=== PATIENT | male | born 1980 | race African-American/Black ===

== ENCOUNTER 2016-07-12 23:33 | Inpatient (IN) | payer OTHER ==
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
[2016-07-12 23:53] VITALS: BMI 22.7
[2016-07-13] MEDS ORDERED: MAGNESIUM HYDROX 2400MG/30ML ORAL SUSPENSION 30 ML CUP PO PRN (00:02)
[2016-07-13] MEDS ORDERED: hydrOXYzine PAMOATE 50 MG CAPSULE (FP) PO PRN (00:02)
[2016-07-13] MEDS ORDERED: IBUPROFEN 400 MG TABLET (FP) PO PRN (00:02)
[2016-07-13] MEDS ORDERED: MENTHOL/PHENOL 1 EACH UD MM PRN (00:02)
[2016-07-13] MEDS ORDERED: P-EPHED 60MG/TRIPROLIDI 2.5MG TABLET PO PRN (00:02)
[2016-07-13] MEDS ORDERED: MAG HYDROX/AL HYDROX/SIMETH 30 ML UNIT-DOSE CUP PO PRN (00:02)
[2016-07-13] MEDS ORDERED: NICOTINE POLACRILEX 2 MG GUM BC PRN (00:02)
[2016-07-13] MEDS ORDERED: guaiFENesin/D-METHORPHAN HB 10 ML UNIT-DOSE CUPS PO PRN (00:02)
[2016-07-13] MEDS ORDERED: METHADONE HCL 10 MG TABLET (FOR DETOX USE ONLY) PO ONE ×3 (00:02→23:00)
[2016-07-13] MEDS ORDERED: MAGNESIUM CITRATE 300 ML BOTTLE PO PRN (00:02)
[2016-07-13] MEDS ORDERED: LOPERAMIDE HCL 2 MG CAPSULE PO PRN (00:02)
[2016-07-13] MEDS: diazePAM 5 MG TABLET PO PRN ×6 (00:56→22:22)
[2016-07-13] MEDS: diphenhydrAMINE HCL 50 MG CAPSULE PO PRN ×2 (00:56→22:22)
[2016-07-13] MEDS: LIDOCAINE VISCOUS 2% ORAL/TOP 20 ML UNIT-DOSE CUP MM PRN ×5 (00:57→20:35)
[2016-07-13] MEDS: PRENATAL VITAMINS W/ FOLIC ACID TABLET (FP) PO SCH (10:20)
[2016-07-13 11:22] LABS: ALBUMIN 3.5 g/dl (3.4-5.0); ANION GAP 8 (8-16); CALCIUM 8.9 mg/dL (8.5-10.1); CO2 32 mmol/L (21-32); CREATININE 1.1 mg/dL (0.7-1.3); GLUCOSE,RANDOM 65 mg/dL (74-106); SGOT/AST 23 U/L (15-37); SGPT/ALT 28 U/L (12-78)
[2016-07-13 11:29] LABS: ALK PHOS 76 U/L (45-117); BILIRUBIN,TOTAL 0.4 mg/dL (0.2-1.0); TOT PROT 7.5 g/dl (6.4-8.2)
[2016-07-13 11:39] LABS: MCH 29.1 pg (25.7-33.7); MCHC 32.9 g/dl (32.0-35.9); MEAN CELL VOLUME 88.7 fl (80-96); MEAN PLT VOLUME 11.1 fl (7.5-11.1); PLATELET COUNT 295 K/MM3 (134-434); RDW 13.7 % (11.9-15.9); WHITE BLOOD COUNT 7.3 K/mm3 (4.0-10.0)
--- NOTE | 2016-07-13 11:40 | PN ---
[facility] COWS - Scale Resting Pulse: 1= ID [id number] Sweatin=Flushed/Facial Moisture Restless Observation: 1= Difficult to Sit Still Pupil Size: 0= Normal to Room Light Bone or Joint Aches: 2= Severe Diffuse Aches Runny Nose/ Eye Tearin= Runny Nose/Eyes GI Upset > 30mins: 2= Nausea/Diarrhea Tremor Observation of Outstretched Hands: 2= Slight Tremor Visible Yawning Observation: 1= 1-2x During Session Anxiety or Irritability: 2=Irritable/Anxious Goose Flesh Skin: 0=Smooth Skin COWS Score: 15 BHS Progress Note (SOAP) Subjective: Anxiety,tremors,sweating,interrupted sleep,restless Objective: 07/13/16 11:39 Last Vital Signs Temp Pulse Resp BP Pulse Ox 96.8 F L 84 18 135/78 07/13/16 09:56 07/13/16 09:56 07/13/16 09:56 07/13/16 09:56 Laboratory Last Values Sodium 138 mmol/L (136-145) 07/13/16 08:00 Potassium 4.0 mmol/L (3.5-5.1) 07/13/16 08:00 Chloride 98 mmol/L (98-107) 07/13/16 08:00 Carbon Dioxide 32 mmol/L (21-32) D 07/13/16 08:00 Anion Gap 8 (8-16) 07/13/16 08:00 BUN 14 mg/dL (7-18) 07/13/16 08:00 Creatinine 1.1 mg/dL (0.7-1.3) 07/13/16 08:00 Creat Clearance w eGFR > 60 (>60) 07/13/16 08:00 Random Glucose 65 mg/dL (74-106) L 07/13/16 08:00 Calcium 8.9 mg/dL (8.5-10.1) 07/13/16 08:00 Total Bilirubin 0.4 mg/dL (0.2-1.0) D 07/13/16 08:00 AST 23 U/L (15-37) D 07/13/16 08:00 ALT 28 U/L (12-78) 07/13/16 08:00 Alkaline Phosphatase 76 U/L (45-117) D 07/13/16 08:00 Total Protein 7.5 g/dl (6.4-8.2) 07/13/16 08:00 Albumin 3.5 g/dl (3.4-5.0) 07/13/16 08:00 labs noted Assessment: 07/13/16 11:39 Withdrawal sx. Plan: Continue detox
[2016-07-13] MEDS: NICOTINE 21 MG/24 HOURS TOPICAL PATCH TD SCH (11:50)
--- NOTE | 2016-07-13 12:32 | EKG ---
Test Reason : Blood Pressure : / mmHG Vent. Rate : 069 BPM Atrial Rate : 069 BPM P-R Int : 150 ms QRS Dur : 086 ms QT Int : 406 ms P-R-T Axes : 072 068 059 degrees QTc Int : 435 ms NORMAL SINUS RHYTHM BIATRIAL ENLARGEMENT ABNORMAL ECG NO PREVIOUS ECGS AVAILABLE Confirmed by LAVERNE BAGLEY MD ([id number]) on 07/13/2016 12:31:42 PM Referred By: Confirmed By:LAVERNE BAGLEY MD
[2016-07-13] MEDS: ACETAMINOPHEN 325 MG TABLET (FP) PO PRN (18:56)
[2016-07-13] MEDS: THIAMINE HCL 100 MG TABLET (FP) PO SCH (22:21)
[2016-07-14] MEDS: diphenhydrAMINE HCL 50 MG CAPSULE PO PRN ×2 (00:43→22:18)
[2016-07-14] MEDS: diazePAM 5 MG TABLET PO PRN ×4 (03:46→20:46)
[2016-07-14] MEDS: LIDOCAINE VISCOUS 2% ORAL/TOP 20 ML UNIT-DOSE CUP MM PRN (03:49)
[2016-07-14] MEDS ORDERED: CYCLOBENZAPRINE HCL 10 MG TABLET (FP) PO PRN (09:29)
[2016-07-14] MEDS ORDERED: METHADONE HCL 10 MG TABLET (FOR DETOX USE ONLY) PO ONE (10:00)
[2016-07-14] MEDS: PRENATAL VITAMINS W/ FOLIC ACID TABLET (FP) PO SCH (10:22)
[2016-07-14] MEDS: NICOTINE 21 MG/24 HOURS TOPICAL PATCH TD SCH (10:22)
[2016-07-14] MEDS: cloNIDine HCL 0.1 MG TABLET PO SCH ×2 (10:22→22:18)
[2016-07-14] MEDS: LIDOCAINE VISCOUS 2% ORAL/TOP 100 ML BOTTLE MM PRN ×2 (10:23→22:22)
--- NOTE | 2016-07-14 10:26 | PN ---
S COWS - Scale Resting Pulse: 1= TN 81-100 Sweatin= Chills/Flushing Restless Observation: 3= Extraneous Movement Pupil Size: 1= Pupils >than Normal Bone or Joint Aches: 2= Severe Diffuse Aches Runny Nose/ Eye Tearin= Runny Nose/Eyes GI Upset > 30mins: 3= Vomiting/Diarrhea Tremor Observation of Outstretched Hands: 2= Slight Tremor Visible Yawning Observation: 1= 1-2x During Session Anxiety or Irritability: 2=Irritable/Anxious Goose Flesh Skin: 0=Smooth Skin COWS Score: 18 S Progress Note (SOAP) Subjective: alert,irritable,anxious,pain in the body joint and back,tremor,tremor Objective: 07/14/16 10:23 07/14/16 10:23 Vital Signs Temperature 97.1 F L 07/14/16 06:35 Pulse Rate 84 07/14/16 06:35 Respiratory Rate 16 07/14/16 06:35 Blood Pressure 133/82 07/14/16 06:35 O2 Sat by Pulse Oximetry (%) Laboratory Last Values WBC 7.3 K/mm3 (4.0-10.0) D 07/13/16 08:00 RBC 4.93 M/mm3 (4.00-5.60) 07/13/16 08:00 Hgb 14.4 GM/dL (11.7-16.9) 07/13/16 08:00 Hct 43.7 % (35.4-49) 07/13/16 08:00 MCV 88.7 fl (80-96) 07/13/16 08:00 MCHC 32.9 g/dl (32.0-35.9) 07/13/16 08:00 RDW 13.7 % (11.9-15.9) 07/13/16 08:00 Plt Count 295 K/MM3 (134-434) D 07/13/16 08:00 MPV 11.1 fl (7.5-11.1) 07/13/16 08:00 Sodium 138 mmol/L (136-145) 07/13/16 08:00 Potassium 4.0 mmol/L (3.5-5.1) 07/13/16 08:00 Chloride 98 mmol/L (98-107) 07/13/16 08:00 Carbon Dioxide 32 mmol/L (21-32) D 07/13/16 08:00 Anion Gap 8 (8-16) 07/13/16 08:00 BUN 14 mg/dL (7-18) 07/13/16 08:00 Creatinine 1.1 mg/dL (0.7-1.3) 07/13/16 08:00 Creat Clearance w eGFR > 60 (>60) 07/13/16 08:00 Random Glucose 65 mg/dL (74-106) L 07/13/16 08:00 Calcium 8.9 mg/dL (8.5-10.1) 07/13/16 08:00 Total Bilirubin 0.4 mg/dL (0.2-1.0) D 07/13/16 08:00 AST 23 U/L (15-37) D 07/13/16 08:00 ALT 28 U/L (12-78) 07/13/16 08:00 Alkaline Phosphatase 76 U/L (45-117) D 07/13/16 08:00 Total Protein 7.5 g/dl (6.4-8.2) 07/13/16 08:00 Albumin 3.5 g/dl (3.4-5.0) 07/13/16 08:00 RPR Titer Nonreactive (NONREACTIVE) 07/13/16 08:00 Assessment: 07/14/16 10:25 withdrawal symptom oral sores Plan: continue detox,lidocaine mout wash prn q 4 hrs,fluid
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
[2016-07-14] MEDS: ACETAMINOPHEN 325 MG TABLET (FP) PO PRN (18:00)
[2016-07-14] MEDS: QUEtiapine FUMARATE 100 MG TABLET (FP) PO SCH (22:18)
[2016-07-14] MEDS: THIAMINE HCL 100 MG TABLET (FP) PO SCH (22:18)
--- NOTE | 2016-07-15 08:41 | PN ---
S Progress Note (SOAP) Subjective: ALERT,IRRITABLE,ANXIOUS,INTERRUPTED SLEEP Objective: 07/15/16 08:41 Vital Signs Temperature 97 F L 07/14/16 22:01 Pulse Rate 97 H 07/14/16 22:01 Respiratory Rate 18 07/15/16 06:30 Blood Pressure 139/86 07/14/16 22:01 O2 Sat by Pulse Oximetry (%) Assessment: 07/15/16 08:41 WITHDRAWAL SYMPTOM Plan: CONTINUE DETOX
[2016-07-15] MEDS ORDERED: METHADONE HCL 5 MG TABLET (FOR DETOX USE ONLY) PO ONE (10:00)
[2016-07-15] MEDS: PRENATAL VITAMINS W/ FOLIC ACID TABLET (FP) PO SCH (10:22)
[2016-07-15] MEDS: QUEtiapine FUMARATE 50 MG TABLET PO SCH (10:22)
[2016-07-15] MEDS: cloNIDine HCL 0.1 MG TABLET PO SCH ×2 (10:22→22:19)
[2016-07-15] MEDS: NICOTINE 21 MG/24 HOURS TOPICAL PATCH TD SCH (10:23)
[2016-07-15] MEDS: diazePAM 5 MG TABLET PO PRN ×4 (10:25→22:23)
[2016-07-15] MEDS: LIDOCAINE VISCOUS 2% ORAL/TOP 100 ML BOTTLE MM PRN (10:31)
[2016-07-15] MEDS: diphenhydrAMINE HCL 50 MG CAPSULE PO PRN (22:19)
[2016-07-15] MEDS: QUEtiapine FUMARATE 100 MG TABLET (FP) PO SCH (22:19)
[2016-07-15] MEDS: THIAMINE HCL 100 MG TABLET (FP) PO SCH (22:19)
[2016-07-16] MEDS: LIDOCAINE VISCOUS 2% ORAL/TOP 20 ML UNIT-DOSE CUP MM PRN (06:19)
--- NOTE | 2016-07-16 08:54 | PN ---
S Progress Note (SOAP) Subjective: ALERT,IRRITABLE,ANXIOUS,INTERRUPTED SLEEP, Objective: 07/16/16 08:53 Vital Signs Temperature 96.7 F L 07/16/16 06:44 Pulse Rate 90 07/16/16 06:44 Respiratory Rate 18 07/16/16 06:44 Blood Pressure 118/76 07/16/16 06:44 O2 Sat by Pulse Oximetry (%) Assessment: 07/16/16 08:54 WITHDRAWAL SYMPTOM Plan: CONTINUE DETOX,DISCHARGE IN AM
[2016-07-16] MEDS ORDERED: METHADONE HCL 5 MG TABLET (FOR DETOX USE ONLY) PO ONE (10:00)
[2016-07-16] MEDS: QUEtiapine FUMARATE 50 MG TABLET PO SCH (10:08)
[2016-07-16] MEDS: cloNIDine HCL 0.1 MG TABLET PO SCH ×2 (10:08→22:28)
[2016-07-16] MEDS: PRENATAL VITAMINS W/ FOLIC ACID TABLET (FP) PO SCH (10:08)
[2016-07-16] MEDS: NICOTINE 21 MG/24 HOURS TOPICAL PATCH TD SCH (10:09)
[2016-07-16 22:26] LABS: URINE APPEARANCE CLEAR; URINE BILIRUBIN NEGATIVE (NEGATIVE); URINE BLOOD NEGATIVE (NEGATIVE); URINE COLOR DKYELLOW; URINE GLUCOSE (UA) NEGATIVE (NEGATIVE); URINE KETONE NEGATIVE (NEGATIVE); URINE LEUK ESTERASE NEGATIVE (NEGATIVE); URINE NITRITE NEGATIVE (NEGATIVE); URINE PROTEIN NEGATIVE (NEGATIVE); URINE UROBILINOGEN 2.0 E.U/dl E.U./dl (0.2-1.0)
[2016-07-16] MEDS: QUEtiapine FUMARATE 100 MG TABLET (FP) PO SCH (22:28)
[2016-07-16] MEDS: THIAMINE HCL 100 MG TABLET (FP) PO SCH (22:28)
[2016-07-16] MEDS: diphenhydrAMINE HCL 50 MG CAPSULE PO PRN (22:28)
[2016-07-16] MEDS: LIDOCAINE VISCOUS 2% ORAL/TOP 100 ML BOTTLE MM PRN (22:40)
--- NOTE | 2016-07-17 08:15 | PN ---
S Progress Note (SOAP) Subjective: alert,irritable,interrupted sleep Objective: 07/17/16 08:14 Vital Signs Temperature 98.4 F 07/17/16 06:40 Pulse Rate 89 07/17/16 06:40 Respiratory Rate 16 07/17/16 06:40 Blood Pressure 109/64 07/17/16 06:40 O2 Sat by Pulse Oximetry (%) Assessment: 07/17/16 08:14 withdrawal symptom Plan: continue detox,discharge in am
[2016-07-17 09:48] VITALS: BP 107/62; PULSE 87; TEMP 97.1
[2016-07-17] MEDS ORDERED: METHADONE HCL 10 MG TABLET (FOR DETOX USE ONLY) PO ONE (10:00)
[2016-07-17] MEDS: cloNIDine HCL 0.1 MG TABLET PO SCH (10:25)
[2016-07-17] MEDS: PRENATAL VITAMINS W/ FOLIC ACID TABLET (FP) PO SCH (10:26)
[2016-07-17] MEDS: QUEtiapine FUMARATE 50 MG TABLET PO SCH (10:26)
[2016-07-17] MEDS: NICOTINE 21 MG/24 HOURS TOPICAL PATCH TD SCH (10:26)
--- NOTE | 2016-07-17 11:44 | PN ---
S Progress Note Note: PATIENT IS STABLE,NO WITHDRAWAL SYMPTOM,STABLE FOR DISCHARGE ,FOLLOW UP WITH AFTER CARE PROGRAM ARRANGEMENT
--- NOTE | 2016-07-17 11:45 | DS ---
[facility] Detox Discharge Summary Admission Date: 07/12/16 Discharge Date: 07/17/16 - History Present History: Opioid Dependence Additional Comments: FOLLOW UP WITH AFTER CARE PROGRAM ARRANGEMENT Pertinent Past History: NICOTIN DEPENDENCE S/P FX LEFT FEMUR S/P ABDOMINAL SURGERY PARANOID SCHIZOPHRENIA - Physical Exam Results Vital Signs: Vital Signs Temperature 97.1 F L 07/17/16 09:47 Pulse Rate 87 07/17/16 09:47 Respiratory Rate 20 07/17/16 09:47 Blood Pressure 107/62 07/17/16 09:47 O2 Sat by Pulse Oximetry (%) Pertinent Admission Physical Exam Findings: WITHDRAWAL SYMPTOM - Treatment Hospital Course: Detox Protocol Followed, Detoxed Safely, Responded well, Discharged Condition Good, Rehab Referral Accepted Patient has Accepted a Rehab Referral to: [facility] - Medication Discharge Medications: Ambulatory Orders Benztropine Mesylate [Cogentin -] 2 mg PO HS #30 tablet 11/20/15 Risperidone [Risperdal] 3 mg PO HS #30 tablet 11/20/15 Quetiapine Fumarate [Seroquel -] 200 mg PO HS #30 tab 07/14/16 - AMA Did Patient Leave Against Medical Advice: No
[2016-07-18] MEDS ORDERED: METHADONE HCL 5 MG TABLET (FOR DETOX USE ONLY) PO ONE (06:00)
== END 2016-07-17 12:30 | disposition home or self-care (01) | DRG 773 ==
LOC: YASAS 23:33 → Y3N 23:40
PROVIDERS: ADMIT Internal Medicine; ATTEND Internal Medicine
PROC: HZ2ZZZZ Detoxification Services for Substance Abuse Treatment (ICD-10-PCS; principal; 2016-07-17)
DX: F11.23 Opioid dependence with withdrawal (principal); F10.230 Alcohol dependence with withdrawal, uncomplicated; F14.20 Cocaine dependence, uncomplicated; F17.210 Nicotine dependence, cigarettes, uncomplicated; F19.24 Other psychoactive substance dependence with psychoactive substance-induced mood disorder; F20.0 Paranoid schizophrenia; G47.00 Insomnia, unspecified; K13.79 Other lesions of oral mucosa; Z87.81 Personal history of (healed) traumatic fracture
CPT/HCPCS: 36415; 80053; 81003; 85027; 86593; 93005; 93010

== ENCOUNTER 2016-10-23 13:24 | Inpatient (IN) | payer OTHER ==
[2016-10-23 13:49] VITALS: BMI 24.5
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
[2016-10-23] MEDS ORDERED: MAG HYDROX/AL HYDROX/SIMETH 30 ML UNIT-DOSE CUP PO PRN (18:41)
[2016-10-23] MEDS ORDERED: MENTHOL/PHENOL 1 EACH UD MM PRN (18:41)
[2016-10-23] MEDS ORDERED: MAGNESIUM HYDROX 2400MG/30ML ORAL SUSPENSION 30 ML CUP PO PRN (18:41)
[2016-10-23] MEDS ORDERED: diazePAM 5 MG TABLET PO ONE (18:41)
[2016-10-23] MEDS ORDERED: NICOTINE POLACRILEX 2 MG GUM BC PRN (18:41)
[2016-10-23] MEDS ORDERED: P-EPHED 60MG/TRIPROLIDI 2.5MG TABLET PO PRN (18:41)
[2016-10-23] MEDS ORDERED: guaiFENesin/D-METHORPHAN HB 10 ML UNIT-DOSE CUPS PO PRN (18:41)
[2016-10-23] MEDS ORDERED: METHADONE HCL 10 MG TABLET (FOR DETOX USE ONLY) PO ONE ×2 (18:41→23:00)
[2016-10-23] MEDS ORDERED: MAGNESIUM CITRATE 300 ML BOTTLE PO PRN (18:41)
[2016-10-23] MEDS ORDERED: LOPERAMIDE HCL 2 MG CAPSULE PO PRN (18:41)
[2016-10-23] MEDS: THIAMINE HCL 100 MG TABLET (FP) PO SCH (22:19)
[2016-10-23] MEDS: diazePAM 5 MG TABLET PO SCH (22:19)
[2016-10-23 23:16] LABS: URINE APPEARANCE CLEAR; URINE BILIRUBIN NEGATIVE (NEGATIVE); URINE BLOOD NEGATIVE (NEGATIVE); URINE COLOR YELLOW; URINE GLUCOSE (UA) NEGATIVE (NEGATIVE); URINE KETONE TRACE (NEGATIVE); URINE LEUK ESTERASE NEGATIVE (NEGATIVE); URINE NITRITE NEGATIVE (NEGATIVE); URINE PROTEIN NEGATIVE (NEGATIVE); URINE UROBILINOGEN 2.0 E.U/dl E.U./dl (0.2-1.0)
[2016-10-24] MEDS: diazePAM 5 MG TABLET PO PRN ×3 (00:28→17:05)
[2016-10-24] MEDS: LIDOCAINE VISCOUS 2% ORAL/TOP 20 ML UNIT-DOSE CUP MM PRN ×3 (00:29→18:12)
[2016-10-24] MEDS: diazePAM 5 MG TABLET PO SCH ×3 (05:13→22:11)
[2016-10-24] MEDS ORDERED: METHADONE HCL 10 MG TABLET (FOR DETOX USE ONLY) PO SCH (10:00)
[2016-10-24 10:04] LABS: MCH 30.5 pg (25.7-33.7); MCHC 33.7 g/dl (32.0-35.9); MEAN CELL VOLUME 90.3 fl (80-96); MEAN PLT VOLUME 12.1 fl (7.5-11.1); PLATELET COUNT 302 K/MM3 (134-434); RDW 13.3 % (11.9-15.9); WHITE BLOOD COUNT 6.6 K/mm3 (4.0-10.0)
[2016-10-24 10:05] LABS: ALBUMIN 3.7 g/dl (3.4-5.0); ALK PHOS 81 U/L (45-117); ANION GAP 8 (8-16); BILIRUBIN,TOTAL 0.4 mg/dL (0.2-1.0); CALCIUM 8.5 mg/dL (8.5-10.1); CO2 28 mmol/L (21-32); CREATININE 1.1 mg/dL (0.7-1.3); GLUCOSE,RANDOM 110 mg/dL (74-106); SGOT/AST 43 U/L (15-37); SGPT/ALT 41 U/L (12-78); TOT PROT 7.9 g/dl (6.4-8.2)
[2016-10-24] MEDS: PRENATAL VITAMINS W/ FOLIC ACID TABLET (FP) PO SCH (10:06)
[2016-10-24] MEDS: NICOTINE 14 MG/24 HOURS TOPICAL PATCH TD SCH (10:08)
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
[2016-10-24] MEDS ORDERED: BACITRACIN 30 GM TUBE TOPICAL OINTMENT TP SCH (10:45)
[2016-10-24] MEDS: BACITRACIN 0.9 GM PACKET TP SCH (11:09)
[2016-10-24 13:22] LABS: HIV 1 & 2 AB NEGATIVE; HIV 1 AGp24 NEGATIVE
[2016-10-24] MEDS: IBUPROFEN 400 MG TABLET (FP) PO PRN (18:10)
[2016-10-24] MEDS: TOLNAFTATE 1% CREAM 15 GM TUBE TP SCH (22:09)
[2016-10-24] MEDS: HYDROCORTISONE 1% TOPICAL OINT 30 GM TUBE TP SCH (22:10)
[2016-10-24] MEDS: risperiDONE 3 MG TABLET PO SCH (22:11)
[2016-10-24] MEDS: BENZTROPINE MESYLATE 1 MG TABLET (FP) PO SCH (22:11)
[2016-10-24] MEDS: traZODone HCL 100 MG TABLET (FP) PO SCH (22:12)
[2016-10-24] MEDS: THIAMINE HCL 100 MG TABLET (FP) PO SCH (22:12)
[2016-10-24] MEDS: diphenhydrAMINE HCL 50 MG CAPSULE PO PRN (22:14)
[2016-10-25] MEDS: diazePAM 5 MG TABLET PO PRN ×3 (05:45→17:06)
[2016-10-25] MEDS: LIDOCAINE VISCOUS 2% ORAL/TOP 20 ML UNIT-DOSE CUP MM PRN ×3 (05:47→22:34)
[2016-10-25] MEDS: diazePAM 5 MG TABLET PO SCH ×2 (10:41→22:54)
[2016-10-25] MEDS: PRENATAL VITAMINS W/ FOLIC ACID TABLET (FP) PO SCH (10:41)
[2016-10-25] MEDS: TOLNAFTATE 1% CREAM 15 GM TUBE TP SCH ×2 (10:41→22:33)
[2016-10-25] MEDS: METHADONE HCL 5 MG TABLET (FOR DETOX USE ONLY) PO SCH (10:41)
[2016-10-25] MEDS: BACITRACIN 0.9 GM PACKET TP SCH (10:41)
[2016-10-25] MEDS: HYDROCORTISONE 1% TOPICAL OINT 30 GM TUBE TP SCH ×2 (10:42→22:32)
[2016-10-25] MEDS: NICOTINE 14 MG/24 HOURS TOPICAL PATCH TD SCH (10:42)
[2016-10-25] MEDS: IBUPROFEN 400 MG TABLET (FP) PO PRN ×2 (10:55→17:06)
--- NOTE | 2016-10-25 13:52 | PN ---
S CIWA - CIWA Score Nausea/Vomitin Muscle Tremors: 3 Anxiety: 4-Mod. Anxious/Guarded Agitation: 1-Slight > Activity Paroxysmal Sweats: 2 Orientation: 0-Oriented Tacttile Disturbances: 2-Mild Itch/Numbness/Burn Auditory Disturbances: 0-None Visual Disturbances: 1-Very Mild Sensitivity Headache: 2-Mild CIWA-Ar Total Score: 18 [facility] COWS - Scale Resting Pulse: 1= [place] 81-100 Sweatin=Flushed/Facial Moisture Restless Observation: 1= Difficult to Sit Still Pupil Size: 0= Normal to Room Light Bone or Joint Aches: 2= Severe Diffuse Aches Runny Nose/ Eye Tearin= Nasal Congestion GI Upset > 30mins: 2= Nausea/Diarrhea Tremor Observation of Outstretched Hands: 2= Slight Tremor Visible Yawning Observation: 1= 1-2x During Session Anxiety or Irritability: 2=Irritable/Anxious Goose Flesh Skin: 3=Piloerection COWS Score: 17 S Progress Note (SOAP) Subjective: Sweating, Hot / Cold sensations, Body Aches, Lower Back ache, Interrupted Sleep , Nausea, Diarrhea, Stomach Cramping, H/A. Objective: PT. A & O X 3, OBSERVED AMBULATING ON UNIT WITH ASSISTANCE OF CANE. NO ACUTE DISTRESS. PT. DENIES CHEST PAIN. 10/25/16 13:50 Vital Signs Temperature 96.9 F L 10/25/16 13:45 Pulse Rate 94 H 10/25/16 13:45 Respiratory Rate 18 10/25/16 13:45 Blood Pressure 149/85 10/25/16 13:45 O2 Sat by Pulse Oximetry (%) Laboratory Tests 10/23/16 10/23/16 10/24/16 14:00 22:04 06:00 WBC 6.6 RBC 4.94 Hgb 15.1 Hct 44.6 MCV 90.3 MCHC 33.7 RDW 13.3 Plt Count 302 MPV 12.1 H Sodium Potassium Chloride Carbon Dioxide Anion Gap BUN Creatinine Creat Clearance w eGFR Random Glucose Calcium Total Bilirubin AST ALT Alkaline Phosphatase Total Protein Albumin Urine Color Yellow Urine Appearance Clear Urine pH 5.0 Ur Specific [place] 1.025 Urine Protein Negative Urine Glucose (UA) Negative Urine Ketones Trace H Urine Blood Negative Urine Nitrite Negative Urine Bilirubin Negative Urine Urobilinogen 2.0 e.u/dl Ur Leukocyte Esterase Negative RPR Titer HIV 1&2 Antibody Screen Negative HIV P24 Antigen Negative 10/24/16 10/24/16 06:00 06:00 WBC RBC Hgb Hct MCV MCHC RDW Plt Count MPV Sodium 138 Potassium 4.2 Chloride 102 Carbon Dioxide 28 Anion Gap 8 BUN 15 Creatinine 1.1 Creat Clearance w eGFR > 60 Random Glucose 110 H D Calcium 8.5 Total Bilirubin 0.4 AST 43 H D ALT 41 D Alkaline Phosphatase 81 Total Protein 7.9 Albumin 3.7 Urine Color Urine Appearance Urine pH Ur Specific [place] Urine Protein Urine Glucose (UA) Urine Ketones Urine Blood Urine Nitrite Urine Bilirubin Urine Urobilinogen Ur Leukocyte Esterase RPR Titer Nonreactive HIV 1&2 Antibody Screen HIV P24 Antigen LABS NOTED. Assessment: 10/25/16 13:51 WITHDRAWAL SYMPTOMS. Plan: CONTINUE DETOX.
[2016-10-25] MEDS: BENZTROPINE MESYLATE 1 MG TABLET (FP) PO SCH (22:22)
[2016-10-25] MEDS: risperiDONE 3 MG TABLET PO SCH (22:23)
[2016-10-25] MEDS: THIAMINE HCL 100 MG TABLET (FP) PO SCH (22:23)
[2016-10-25] MEDS: traZODone HCL 100 MG TABLET (FP) PO SCH (22:23)
[2016-10-26] MEDS: LIDOCAINE VISCOUS 2% ORAL/TOP 20 ML UNIT-DOSE CUP MM PRN ×2 (05:36→16:55)
[2016-10-26] MEDS: IBUPROFEN 400 MG TABLET (FP) PO PRN ×2 (07:02→17:27)
[2016-10-26] MEDS: diazePAM 5 MG TABLET PO PRN ×2 (07:03→16:39)
[2016-10-26] MEDS: ACETAMINOPHEN 325 MG TABLET (FP) PO PRN ×2 (09:42→18:42)
[2016-10-26] MEDS: PRENATAL VITAMINS W/ FOLIC ACID TABLET (FP) PO SCH (10:07)
[2016-10-26] MEDS: METHADONE HCL 5 MG TABLET (FOR DETOX USE ONLY) PO SCH (10:07)
[2016-10-26] MEDS: TOLNAFTATE 1% CREAM 15 GM TUBE TP SCH ×2 (10:08→21:55)
[2016-10-26] MEDS: diazePAM 5 MG TABLET PO SCH ×2 (10:08→21:53)
[2016-10-26] MEDS: HYDROCORTISONE 1% TOPICAL OINT 30 GM TUBE TP SCH ×2 (10:09→21:54)
[2016-10-26] MEDS: BACITRACIN 0.9 GM PACKET TP SCH (10:56)
[2016-10-26] MEDS: NICOTINE 14 MG/24 HOURS TOPICAL PATCH TD SCH (10:56)
[2016-10-26] MEDS: CHLORHEXIDINE GLUCONATE 0.12% 15ML CUP MM SCH ×2 (10:57→21:55)
--- NOTE | 2016-10-26 12:11 | PN ---
[facility] Progress Note (SOAP) Subjective: Nausea, sweating, anxious, c/o mouth ulcer hurting x 1 week Objective: 10/26/16 12:07 Last Vital Signs Temp Pulse Resp BP Pulse Ox 97.2 F L 99 H 18 140/83 10/26/16 10:43 10/26/16 10:43 10/26/16 10:43 10/26/16 10:43 PE: moderate size elongated ulcer with slough to inner right lip, scant redness , no drainage or discharge noted Laboratory Tests 10/23/16 10/23/16 10/24/16 14:00 22:04 06:00 WBC 6.6 RBC 4.94 Hgb 15.1 Hct 44.6 MCV 90.3 MCHC 33.7 RDW 13.3 Plt Count 302 MPV 12.1 H Sodium Potassium Chloride Carbon Dioxide Anion Gap BUN Creatinine Creat Clearance w eGFR Random Glucose Calcium Total Bilirubin AST ALT Alkaline Phosphatase Total Protein Albumin Urine Color Yellow Urine Appearance Clear Urine pH 5.0 Ur Specific [place] 1.025 Urine Protein Negative Urine Glucose (UA) Negative Urine Ketones Trace H Urine Blood Negative Urine Nitrite Negative Urine Bilirubin Negative Urine Urobilinogen 2.0 e.u/dl Ur Leukocyte Esterase Negative RPR Titer HIV 1&2 Antibody Screen Negative HIV P24 Antigen Negative 10/24/16 10/24/16 06:00 06:00 WBC RBC Hgb Hct MCV MCHC RDW Plt Count MPV Sodium 138 Potassium 4.2 Chloride 102 Carbon Dioxide 28 Anion Gap 8 BUN 15 Creatinine 1.1 Creat Clearance w eGFR > 60 Random Glucose 110 H D Calcium 8.5 Total Bilirubin 0.4 AST 43 H D ALT 41 D Alkaline Phosphatase 81 Total Protein 7.9 Albumin 3.7 Urine Color Urine Appearance Urine pH Ur Specific [place] Urine Protein Urine Glucose (UA) Urine Ketones Urine Blood Urine Nitrite Urine Bilirubin Urine Urobilinogen Ur Leukocyte Esterase RPR Titer Nonreactive HIV 1&2 Antibody Screen HIV P24 Antigen Labs noted Assessment: 10/26/16 12:08 Withdrawal symptoms Noted with aphthous ulcer to right inner lower lip Plan: Continue detox Aphthous ulcer right lower lip: peridex 15ml swish and spit bid, continue lidocaine prn for pain
[2016-10-26] MEDS: THIAMINE HCL 100 MG TABLET (FP) PO SCH (21:52)
[2016-10-26] MEDS: BENZTROPINE MESYLATE 1 MG TABLET (FP) PO SCH (21:53)
[2016-10-26] MEDS: risperiDONE 3 MG TABLET PO SCH (21:54)
[2016-10-26] MEDS: traZODone HCL 100 MG TABLET (FP) PO SCH (22:01)
--- NOTE | 2016-10-26 22:19 | EKG ---
Test Reason : Blood Pressure : / mmHG Vent. Rate : 063 BPM Atrial Rate : 063 BPM P-R Int : 162 ms QRS Dur : 090 ms QT Int : 414 ms P-R-T Axes : 060 059 052 degrees QTc Int : 423 ms NORMAL SINUS RHYTHM NORMAL ECG WHEN COMPARED WITH ECG OF 13-JUL-2016 00:45, NO SIGNIFICANT CHANGE WAS FOUND Confirmed by EMA GUAJARDO MD ([id number]) on 10/26/2016 10:18:44 PM Referred By: Dave Markham Confirmed By:EMA GUAJARDO MD
[2016-10-26] MEDS: diphenhydrAMINE HCL 50 MG CAPSULE PO PRN (22:29)
[2016-10-27] MEDS: LIDOCAINE VISCOUS 2% ORAL/TOP 20 ML UNIT-DOSE CUP MM PRN ×2 (05:23→18:53)
[2016-10-27] MEDS: TOLNAFTATE 1% CREAM 15 GM TUBE TP SCH ×2 (09:58→22:07)
[2016-10-27] MEDS: PRENATAL VITAMINS W/ FOLIC ACID TABLET (FP) PO SCH (09:59)
[2016-10-27] MEDS: HYDROCORTISONE 1% TOPICAL OINT 30 GM TUBE TP SCH ×2 (09:59→22:07)
[2016-10-27] MEDS: BACITRACIN 0.9 GM PACKET TP SCH (09:59)
[2016-10-27] MEDS: NICOTINE 14 MG/24 HOURS TOPICAL PATCH TD SCH (10:00)
[2016-10-27] MEDS ORDERED: METHADONE HCL 10 MG TABLET (FOR DETOX USE ONLY) PO SCH (10:00)
[2016-10-27] MEDS ORDERED: diazePAM 5 MG TABLET PO SCH (10:00)
[2016-10-27] MEDS: CHLORHEXIDINE GLUCONATE 0.12% 15ML CUP MM SCH ×2 (10:00→22:08)
--- NOTE | 2016-10-27 11:03 | PN ---
[facility] Progress Note (SOAP) Subjective: Body Aches, Interrupted Sleep, H/A, Sweating, Nausea, Diarrhea. Objective: PT. A & O X 3, OBSERVED AMBULATING ON UNIT WITH ASSISTANCE OF A CANE. NO ACUTE DISTRESS. PT. DENIES CHEST PAIN. PT. DENIES ANY HISTORY OF HTN. 10/27/16 11:01 Vital Signs Temperature 97.3 F L 10/27/16 08:48 Pulse Rate 83 10/27/16 08:48 Respiratory Rate 18 10/27/16 08:48 Blood Pressure 145/93 10/27/16 08:48 O2 Sat by Pulse Oximetry (%) Laboratory Tests 10/23/16 10/23/16 10/24/16 14:00 22:04 06:00 WBC 6.6 RBC 4.94 Hgb 15.1 Hct 44.6 MCV 90.3 MCHC 33.7 RDW 13.3 Plt Count 302 MPV 12.1 H Sodium Potassium Chloride Carbon Dioxide Anion Gap BUN Creatinine Creat Clearance w eGFR Random Glucose Calcium Total Bilirubin AST ALT Alkaline Phosphatase Total Protein Albumin Urine Color Yellow Urine Appearance Clear Urine pH 5.0 Ur Specific [place] 1.025 Urine Protein Negative Urine Glucose (UA) Negative Urine Ketones Trace H Urine Blood Negative Urine Nitrite Negative Urine Bilirubin Negative Urine Urobilinogen 2.0 e.u/dl Ur Leukocyte Esterase Negative RPR Titer HIV 1&2 Antibody Screen Negative HIV P24 Antigen Negative 10/24/16 10/24/16 06:00 06:00 WBC RBC Hgb Hct MCV MCHC RDW Plt Count MPV Sodium 138 Potassium 4.2 Chloride 102 Carbon Dioxide 28 Anion Gap 8 BUN 15 Creatinine 1.1 Creat Clearance w eGFR > 60 Random Glucose 110 H D Calcium 8.5 Total Bilirubin 0.4 AST 43 H D ALT 41 D Alkaline Phosphatase 81 Total Protein 7.9 Albumin 3.7 Urine Color Urine Appearance Urine pH Ur Specific [place] Urine Protein Urine Glucose (UA) Urine Ketones Urine Blood Urine Nitrite Urine Bilirubin Urine Urobilinogen Ur Leukocyte Esterase RPR Titer Nonreactive HIV 1&2 Antibody Screen HIV P24 Antigen LABS NOTED. 10/27/16 11:04 Assessment: 10/27/16 11:01 WITHDRAWAL SYMPTOMS. Plan: CONTINUE DETOX. PRN FLEXERIL FOR BODY ACHES /MUSCLE SPASMS. PRN IMMODIUM FOR DIARRHEA. CLONIDINE, 0.1 MG X1 FOR ELEVATED BP AND FOR DETOX SYMPTOMS. ADVISED PATIENT TO FOLLOW-UP WITH RECORDING CLERK AFTER DISCHARGE FROM DETOX FOR GENERAL MEDICAL ASSESSMENT AND FOR ELEVATED BP WHILE ADMITTED FOR DETOX.
[2016-10-27] MEDS ORDERED: cloNIDine HCL 0.1 MG TABLET PO ONE (11:28)
[2016-10-27] MEDS: CYCLOBENZAPRINE HCL 10 MG TABLET (FP) PO PRN (11:44)
[2016-10-27] MEDS: BENZTROPINE MESYLATE 1 MG TABLET (FP) PO SCH (22:04)
[2016-10-27] MEDS: THIAMINE HCL 100 MG TABLET (FP) PO SCH (22:04)
[2016-10-27] MEDS: traZODone HCL 100 MG TABLET (FP) PO SCH (22:04)
[2016-10-27] MEDS: risperiDONE 3 MG TABLET PO SCH (22:04)
[2016-10-27] MEDS: diphenhydrAMINE HCL 50 MG CAPSULE PO PRN (22:04)
[2016-10-28] MEDS ORDERED: METHADONE HCL 5 MG TABLET (FOR DETOX USE ONLY) PO SCH (06:00)
[2016-10-28] MEDS: CYCLOBENZAPRINE HCL 10 MG TABLET (FP) PO PRN (07:02)
[2016-10-28] MEDS: LIDOCAINE VISCOUS 2% ORAL/TOP 20 ML UNIT-DOSE CUP MM PRN (08:25)
[2016-10-28 09:43] VITALS: BP 143/84; PULSE 96; TEMP 97
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
[2016-10-28] MEDS: BACITRACIN 0.9 GM PACKET TP SCH (10:06)
[2016-10-28] MEDS: HYDROCORTISONE 1% TOPICAL OINT 30 GM TUBE TP SCH (10:06)
[2016-10-28] MEDS: NICOTINE 14 MG/24 HOURS TOPICAL PATCH TD SCH (10:07)
[2016-10-28] MEDS: TOLNAFTATE 1% CREAM 15 GM TUBE TP SCH (10:07)
[2016-10-28] MEDS: PRENATAL VITAMINS W/ FOLIC ACID TABLET (FP) PO SCH (10:07)
[2016-10-28] MEDS: CHLORHEXIDINE GLUCONATE 0.12% 15ML CUP MM SCH (10:07)
== END 2016-10-28 12:18 | disposition other institution (70) | DRG 773 ==
LOC: YASAS 13:24 → Y3N 16:46
PROVIDERS: ADMIT Internal Medicine; ATTEND Internal Medicine
PROC: HZ2ZZZZ Detoxification Services for Substance Abuse Treatment (ICD-10-PCS; principal; 2016-10-23)
DX: F11.23 Opioid dependence with withdrawal (principal); F13.230 Sedative, hypnotic or anxiolytic dependence with withdrawal, uncomplicated; F10.230 Alcohol dependence with withdrawal, uncomplicated; F14.20 Cocaine dependence, uncomplicated; F17.213 Nicotine dependence, cigarettes, with withdrawal; F20.0 Paranoid schizophrenia; B35.3 Tinea pedis; H60.543 Acute eczematoid otitis externa, bilateral; L30.9 Dermatitis, unspecified; K12.0 Recurrent oral aphthae; R26.2 Difficulty in walking, not elsewhere classified; Z99.89 Dependence on other enabling machines and devices; Z87.81 Personal history of (healed) traumatic fracture; Z91.011 Allergy to milk products; Z91.012 Allergy to eggs; Z91.5 Personal history of self-harm
CPT/HCPCS: 36415; 80053; 81003; 85027; 86593; 87389; 93005; 93010

== ENCOUNTER 2016-10-28 10:17 | Inpatient (IN) | payer OTHER ==
[2016-10-28] MEDS ORDERED: guaiFENesin/D-METHORPHAN HB 10 ML UNIT-DOSE CUPS PO PRN (12:50)
[2016-10-28] MEDS ORDERED: MENTHOL/PHENOL 1 EACH UD MM PRN (12:50)
[2016-10-28] MEDS ORDERED: LOPERAMIDE HCL 2 MG CAPSULE PO PRN (12:50)
[2016-10-28] MEDS ORDERED: diphenhydrAMINE HCL 50 MG CAPSULE PO PRN (12:50)
[2016-10-28] MEDS ORDERED: MAG HYDROX/AL HYDROX/SIMETH 30 ML UNIT-DOSE CUP PO PRN (12:50)
[2016-10-28] MEDS ORDERED: MAGNESIUM HYDROX 2400MG/30ML ORAL SUSPENSION 30 ML CUP PO PRN (12:50)
[2016-10-28] MEDS ORDERED: P-EPHED 60MG/TRIPROLIDI 2.5MG TABLET PO PRN (12:50)
[2016-10-28] MEDS ORDERED: MAGNESIUM CITRATE 300 ML BOTTLE PO PRN (12:50)
--- NOTE | 2016-10-28 12:58 | HP ---
KELLIE JAMESON Rehab Assess/Revision - Admission History Admitted to Rehab from: [facility] Date of Admission to Rehab: 10/28/16 - Vital signs Vital Signs: Vital Signs Period Temp Pulse Resp BP Sys/[place] Pulse Ox Last 24 Hr 97.9 F 80 16 134/78 - Findings Detox History & Physical reviewed: Yes Concur with findings: Yes Comments/Additional Findings: for rehab as protocol
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
[2016-10-28] MEDS: diphenhydrAMINE HCL 50 MG CAPSULE PO SCH (22:06)
[2016-10-28] MEDS: risperiDONE 3 MG TABLET PO SCH (22:07)
[2016-10-28] MEDS: THIAMINE HCL 100 MG TABLET (FP) PO SCH (22:07)
[2016-10-28] MEDS: BENZTROPINE MESYLATE 1 MG TABLET (FP) PO SCH (22:07)
[2016-10-28] MEDS: traZODone HCL 100 MG TABLET (FP) PO SCH (22:07)
[2016-10-28] MEDS: LIDOCAINE VISCOUS 2% ORAL/TOP 20 ML UNIT-DOSE CUP MM PRN (22:10)
[2016-10-29] MEDS: PRENATAL VITAMINS W/ FOLIC ACID TABLET (FP) PO SCH (10:38)
[2016-10-29] MEDS: NICOTINE 21 MG/24 HOURS TOPICAL PATCH TD SCH (10:38)
[2016-10-29] MEDS: LIDOCAINE VISCOUS 2% ORAL/TOP 20 ML UNIT-DOSE CUP MM PRN (10:40)
[2016-10-29] MEDS: HYDROCORTISONE 0.5% TOPICAL OINTMENT TUBE TP SCH ×2 (12:01→21:15)
[2016-10-29] MEDS: TOLNAFTATE 1% CREAM 15 GM TUBE TP SCH ×2 (12:02→21:15)
[2016-10-29] MEDS: IBUPROFEN 400 MG TABLET (FP) PO PRN (12:04)
[2016-10-29] MEDS: THIAMINE HCL 100 MG TABLET (FP) PO SCH (21:14)
[2016-10-29] MEDS: BENZTROPINE MESYLATE 1 MG TABLET (FP) PO SCH (21:14)
[2016-10-29] MEDS: diphenhydrAMINE HCL 50 MG CAPSULE PO SCH (21:14)
[2016-10-29] MEDS: traZODone HCL 100 MG TABLET (FP) PO SCH (21:15)
[2016-10-29] MEDS: risperiDONE 3 MG TABLET PO SCH (21:15)
[2016-10-30] MEDS: hydrOXYzine PAMOATE 50 MG CAPSULE (FP) PO PRN (00:15)
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
[2016-10-30] MEDS: PRENATAL VITAMINS W/ FOLIC ACID TABLET (FP) PO SCH (10:48)
[2016-10-30] MEDS: HYDROCORTISONE 0.5% TOPICAL OINTMENT TUBE TP SCH ×2 (10:48→21:42)
[2016-10-30] MEDS: NICOTINE 21 MG/24 HOURS TOPICAL PATCH TD SCH (10:48)
[2016-10-30] MEDS: IBUPROFEN 400 MG TABLET (FP) PO PRN ×3 (10:49→23:42)
[2016-10-30] MEDS: TOLNAFTATE 1% CREAM 15 GM TUBE TP SCH ×2 (10:49→21:42)
[2016-10-30] MEDS: ACETAMINOPHEN 325 MG TABLET (FP) PO PRN (19:46)
[2016-10-30] MEDS: BENZTROPINE MESYLATE 1 MG TABLET (FP) PO SCH (21:39)
[2016-10-30] MEDS: traZODone HCL 100 MG TABLET (FP) PO SCH (21:39)
[2016-10-30] MEDS: diphenhydrAMINE HCL 50 MG CAPSULE PO SCH (21:39)
[2016-10-30] MEDS: risperiDONE 3 MG TABLET PO SCH (21:40)
[2016-10-30] MEDS: THIAMINE HCL 100 MG TABLET (FP) PO SCH (21:40)
[2016-10-31] MEDS: ACETAMINOPHEN 325 MG TABLET (FP) PO PRN ×3 (03:05→19:58)
[2016-10-31] MEDS: IBUPROFEN 400 MG TABLET (FP) PO PRN ×3 (07:33→21:59)
--- NOTE | 2016-10-31 07:50 | PN ---
[facility] Progress Note Note: RIGHT RIBS X RAY O 10/30/16 UNREMARKABLE EXAM,NO RIB FRACTURE CONTINUE MOTRIN PRN
[2016-10-31] MEDS: NICOTINE 21 MG/24 HOURS TOPICAL PATCH TD SCH (10:32)
[2016-10-31] MEDS: PRENATAL VITAMINS W/ FOLIC ACID TABLET (FP) PO SCH (10:32)
[2016-10-31] MEDS: HYDROCORTISONE 0.5% TOPICAL OINTMENT TUBE TP SCH ×2 (10:33→21:59)
[2016-10-31] MEDS: TOLNAFTATE 1% CREAM 15 GM TUBE TP SCH ×2 (10:33→22:00)
[2016-10-31] MEDS: THIAMINE HCL 100 MG TABLET (FP) PO SCH (21:57)
[2016-10-31] MEDS: diphenhydrAMINE HCL 50 MG CAPSULE PO SCH (21:58)
[2016-10-31] MEDS: traZODone HCL 100 MG TABLET (FP) PO SCH (21:59)
[2016-10-31] MEDS: risperiDONE 3 MG TABLET PO SCH (21:59)
[2016-10-31] MEDS: BENZTROPINE MESYLATE 1 MG TABLET (FP) PO SCH (21:59)
[2016-11-01] MEDS: IBUPROFEN 400 MG TABLET (FP) PO PRN ×3 (06:51→22:01)
[2016-11-01] MEDS: NICOTINE 21 MG/24 HOURS TOPICAL PATCH TD SCH (10:00)
[2016-11-01] MEDS: PRENATAL VITAMINS W/ FOLIC ACID TABLET (FP) PO SCH (10:00)
[2016-11-01] MEDS: TOLNAFTATE 1% CREAM 15 GM TUBE TP SCH ×2 (10:02→22:03)
[2016-11-01] MEDS: HYDROCORTISONE 0.5% TOPICAL OINTMENT TUBE TP SCH ×2 (10:03→22:10)
[2016-11-01] MEDS: ACETAMINOPHEN 325 MG TABLET (FP) PO PRN (17:34)
[2016-11-01] MEDS: diphenhydrAMINE HCL 50 MG CAPSULE PO SCH (22:00)
[2016-11-01] MEDS: THIAMINE HCL 100 MG TABLET (FP) PO SCH (22:00)
[2016-11-01] MEDS: traZODone HCL 100 MG TABLET (FP) PO SCH (22:00)
[2016-11-01] MEDS: risperiDONE 3 MG TABLET PO SCH (22:00)
[2016-11-01] MEDS: BENZTROPINE MESYLATE 1 MG TABLET (FP) PO SCH (22:00)
[2016-11-02] MEDS: ACETAMINOPHEN 325 MG TABLET (FP) PO PRN ×2 (01:59→10:08)
[2016-11-02] MEDS: hydrOXYzine PAMOATE 50 MG CAPSULE (FP) PO PRN ×3 (02:00→19:46)
[2016-11-02] MEDS: IBUPROFEN 400 MG TABLET (FP) PO PRN ×3 (07:12→19:46)
[2016-11-02] MEDS: HYDROCORTISONE 0.5% TOPICAL OINTMENT TUBE TP SCH ×2 (10:07→21:24)
[2016-11-02] MEDS: NICOTINE 21 MG/24 HOURS TOPICAL PATCH TD SCH (10:07)
[2016-11-02] MEDS: TOLNAFTATE 1% CREAM 15 GM TUBE TP SCH ×2 (10:07→21:23)
[2016-11-02] MEDS: PRENATAL VITAMINS W/ FOLIC ACID TABLET (FP) PO SCH (10:07)
[2016-11-02] MEDS: traZODone HCL 100 MG TABLET (FP) PO SCH (21:22)
[2016-11-02] MEDS: THIAMINE HCL 100 MG TABLET (FP) PO SCH (21:22)
[2016-11-02] MEDS: risperiDONE 3 MG TABLET PO SCH (21:22)
[2016-11-02] MEDS: BENZTROPINE MESYLATE 1 MG TABLET (FP) PO SCH (21:22)
[2016-11-02] MEDS: diphenhydrAMINE HCL 50 MG CAPSULE PO SCH (21:22)
[2016-11-03] MEDS: IBUPROFEN 400 MG TABLET (FP) PO PRN (02:38)
[2016-11-03] MEDS: hydrOXYzine PAMOATE 50 MG CAPSULE (FP) PO PRN (02:39)
[2016-11-03 05:53] VITALS: BP 141/76; PULSE 85; TEMP 97.6
[2016-11-03] MEDS: ACETAMINOPHEN 325 MG TABLET (FP) PO PRN (06:03)
[2016-11-03] MEDS: HYDROCORTISONE 0.5% TOPICAL OINTMENT TUBE TP SCH (09:56)
[2016-11-03] MEDS: TOLNAFTATE 1% CREAM 15 GM TUBE TP SCH (09:56)
[2016-11-03] MEDS: NICOTINE 21 MG/24 HOURS TOPICAL PATCH TD SCH (09:56)
[2016-11-03] MEDS: PRENATAL VITAMINS W/ FOLIC ACID TABLET (FP) PO SCH (09:56)
--- NOTE | 2016-11-03 11:25 | PN ---
Psychiatric Progress Note Vital Signs: Vital Signs Period Temp Pulse Resp BP Sys/Sterling Pulse Ox Last 24 Hr 97.6 F 85 16-18 141/76 Date of Session: 11/03/16 Chief Complaint:: "leaving AMA" HPI: Patient is a 36 year old male with history of Alcohol dependence, Opioid dependence, Sedative dependence, Cocaine dependence comrbid Schizoaffective disorder and Post-traumatic stress disorder. Current Medications: Active Medications Generic Name Dose Route Start Last Admin Trade Name Vasquezq PRN Reason Stop Dose Admin Acetaminophen 650 mg 10/28/16 12:50 11/03/16 06:03 Tylenol - PO 650 mg Q4H PRN Administration FEVER OR PAIN Al Hydroxide/Mg Hydroxide 30 ml 10/28/16 12:50 10/29/16 14:07 Mylanta Oral Suspension - PO 30 ml Q6H PRN Administration DYSPEPSIA Benztropine Mesylate 2 mg 10/28/16 22:00 11/02/16 21:22 Cogentin - PO 2 mg HS QUIN Administration Diphenhydramine HCl 100 mg 10/28/16 22:00 11/02/16 21:22 Benadryl - PO 100 mg HS QUIN Administration Eucalyptus/Menthol/Phenol/Sorbitol 1 each 10/28/16 12:50 Cepastat Lozenge - MM Q4H PRN SORE THROAT Guaifenesin 10 ml 10/28/16 12:50 Robitussin Dm - PO Q6H PRN COUGH Hydrocortisone 1 applic 10/29/16 11:00 11/03/16 09:56 Hytone 0.5% Ointment - TP Not Given BID QUIN Hydroxyzine Pamoate 50 mg 10/28/16 12:50 11/03/16 02:39 Vistaril - PO 50 mg Q4H PRN Administration AGITATION Ibuprofen 400 mg 10/28/16 12:50 11/03/16 02:38 Motrin - PO 400 mg Q6H PRN Administration PAIN Lidocaine HCl 20 ml 10/28/16 12:54 10/29/16 10:40 Xylocaine 2% Viscous Oral - MM 20 ml Q6HPO PRN Administration ORAL PAIN/MOUTH SORES Loperamide HCl 4 mg 10/28/16 12:50 Imodium - PO Q6H PRN DIARRHEA Magnesium Hydroxide 30 ml 10/28/16 12:50 Milk Of Magnesia - PO DAILY PRN CONSTIPATION Nicotine 21 mg 10/29/16 10:00 11/03/16 09:56 Nicoderm Patch - TD Not Given DAILY QUIN Multivit/Folic Acid/Iron 1 tab 10/29/16 10:00 11/03/16 09:56 Vitamins (Sjr) - PO Not Given DAILY QUIN Pseudoephedrine/Triprolidine 1 combo 10/28/16 12:50 Actifed - PO TID PRN NASAL CONGESTION Risperidone 3 mg 10/28/16 22:00 11/02/16 21:22 Risperdal - PO 3 mg HS QUIN Administration Thiamine HCl 100 mg 10/28/16 22:00 11/02/16 21:22 Vitamin B1 - PO 100 mg HS QUIN Administration Tolnaftate 1 applic 10/29/16 11:00 11/03/16 09:56 Tinactin 1% Cream - TP Not Given BID QUIN Trazodone HCl 100 mg 10/28/16 22:00 11/02/16 21:22 Desyrel - PO 100 mg HS QUIN Administration Current Side Effect: No Lab tests ordered: No Lab tests reviewed: Yes Provider note:: Patient made a decisoin to leave treatment AMA, met with the patient to process reasons for terminating treatemt at this point, patient reported that he has a personal issues he needs to take care of, encouraged patient to stay and focus on his recoverey, but patient did not reconsider. Scripts for his medications were e-transferred to his pharmacy, will f/u at [facility], patient is stable for discharge today. Total face to face time:: 35 Mental Status Exam - Mental Status Exam Alert and Oriented to: Time, Place, Person Cognitive Function: Good Patient Appearance: Well Groomed Mood: Hopeful Affect: Appropriate, Mood Congruent Patient Behavior: Appropriate, Cooperative Speech Pattern: Clear, Appropriate Voice Loudness: Normal Thought Process: Intact, Goal Oriented Thought Disorder: Not Present Hallucinations: Denies Suicidal Ideation: Denies Homicidal Ideation: Denies Insight/Judgement: Fair Sleep: Well Appetite: Good Muscle strength/Tone: Normal Gait/Station: Other Psychiatric Treatment Plan - Problem List (1) Alcohol dependence Current Visit: Yes (2) Opioid dependence Current Visit: Yes (3) Sedative dependence Current Visit: Yes (4) Cocaine dependence Current Visit: No Qualifiers: (5) Schizoaffective disorder Current Visit: Yes (6) Post-traumatic stress disorder Current Visit: Yes
== END 2016-11-03 09:11 | disposition left against medical advice (07) | DRG 770 ==
LOC: YASAS 10:17 → Y5N 10:28
PROVIDERS: ADMIT Psychiatry & Neurology Psychiatry; ATTEND Psychiatry & Neurology Psychiatry
PROC: HZ42ZZZ Group Counseling for Substance Abuse Treatment, Cognitive-Behavioral (ICD-10-PCS; principal; 2016-10-28)
DX: F11.20 Opioid dependence, uncomplicated (principal); F13.20 Sedative, hypnotic or anxiolytic dependence, uncomplicated; F10.20 Alcohol dependence, uncomplicated; F14.20 Cocaine dependence, uncomplicated; F17.210 Nicotine dependence, cigarettes, uncomplicated; F25.9 Schizoaffective disorder, unspecified; F43.10 Post-traumatic stress disorder, unspecified; K13.70 Unspecified lesions of oral mucosa; B35.3 Tinea pedis; J45.909 Unspecified asthma, uncomplicated; R07.9 Chest pain, unspecified; Z87.898 Personal history of other specified conditions; Z87.81 Personal history of (healed) traumatic fracture
CPT/HCPCS: 71101-TC-RT

== ENCOUNTER 2016-12-03 09:39 | Inpatient (IN) | payer OTHER ==
[2016-12-03 10:06] VITALS: BMI 23.6
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
[2016-12-03] MEDS ORDERED: MENTHOL/PHENOL 1 EACH UD MM PRN (12:49)
[2016-12-03] MEDS ORDERED: IBUPROFEN 400 MG TABLET (FP) PO PRN (12:49)
[2016-12-03] MEDS ORDERED: MAGNESIUM CITRATE 300 ML BOTTLE PO PRN (12:49)
[2016-12-03] MEDS ORDERED: NICOTINE POLACRILEX 2 MG GUM BUC PRN (12:49)
[2016-12-03] MEDS ORDERED: MAGNESIUM HYDROX 2400MG/30ML ORAL SUSPENSION 30 ML CUP PO PRN (12:49)
[2016-12-03] MEDS ORDERED: P-EPHED 60MG/TRIPROLIDI 2.5MG TABLET PO PRN (12:49)
[2016-12-03] MEDS ORDERED: ACETAMINOPHEN 325 MG TABLET (FP) PO PRN (12:49)
[2016-12-03] MEDS ORDERED: guaiFENesin/D-METHORPHAN HB 10 ML UNIT-DOSE CUPS PO PRN (12:49)
[2016-12-03] MEDS ORDERED: LOPERAMIDE HCL 2 MG CAPSULE PO PRN (12:49)
[2016-12-03] MEDS ORDERED: METHADONE HCL 10 MG TABLET (FOR DETOX USE ONLY) PO ONE ×2 (12:59→23:00)
[2016-12-03] MEDS: diazePAM 5 MG TABLET PO PRN ×2 (13:17→22:28)
[2016-12-03] MEDS: NICOTINE 21 MG/24 HOURS TOPICAL PATCH TD SCH (13:17)
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
[2016-12-03 17:14] LABS: URINE APPEARANCE CLEAR; URINE BILIRUBIN NEGATIVE (NEGATIVE); URINE BLOOD NEGATIVE (NEGATIVE); URINE COLOR YELLOW; URINE GLUCOSE (UA) NEGATIVE (NEGATIVE); URINE KETONE TRACE (NEGATIVE); URINE LEUK ESTERASE NEGATIVE (NEGATIVE); URINE NITRITE NEGATIVE (NEGATIVE); URINE UROBILINOGEN NEGATIVE mg/dL (0.2-1.0)
[2016-12-03 17:36] LABS: URINE PROTEIN 1+ (NEGATIVE)
[2016-12-03 17:42] LABS: URINE MUCUS FEW; URINE RBC 2 /hpf (0-3); URINE WBC 1 /hpf (3-5)
[2016-12-03] MEDS ORDERED: QUEtiapine FUMARATE 200 MG TABLET PO SCH (22:00)
[2016-12-03] MEDS: QUEtiapine FUMARATE 100 MG TABLET (FP) PO SCH (22:23)
[2016-12-03] MEDS: traZODone HCL 50 MG TABLET (FP) PO SCH (22:23)
[2016-12-03] MEDS: THIAMINE HCL 100 MG TABLET (FP) PO SCH (22:23)
[2016-12-03] MEDS: diphenhydrAMINE HCL 50 MG CAPSULE PO PRN (22:26)
[2016-12-03] MEDS: cloNIDine HCL 0.1 MG TABLET PO SCH (22:27)
[2016-12-03] MEDS: KETOCONOZOLE 2% TOPICAL CREAM 15 GM TUBE TP SCH (22:29)
[2016-12-04] MEDS: diphenhydrAMINE HCL 50 MG CAPSULE PO PRN (00:23)
[2016-12-04] MEDS: diazePAM 5 MG TABLET PO PRN ×4 (02:49→19:51)
[2016-12-04] MEDS: CYCLOBENZAPRINE HCL 10 MG TABLET (FP) PO PRN ×2 (04:24→11:26)
[2016-12-04] MEDS ORDERED: METHADONE HCL 10 MG TABLET (FOR DETOX USE ONLY) PO ONE (10:00)
[2016-12-04 10:11] LABS: MCHC 33.3 g/dl (32.0-35.9); MEAN PLT VOLUME 11.4 fl (7.5-11.1); PLATELET COUNT 382 K/MM3 (134-434); RDW 13.5 % (11.9-15.9); WHITE BLOOD COUNT 9.5 K/mm3 (4.0-10.0)
[2016-12-04 10:26] LABS: ALBUMIN 4.5 g/dl (3.4-5.0); ALK PHOS 88 U/L (45-117); ANION GAP 7 (8-16); BILIRUBIN,TOTAL 0.8 mg/dL (0.2-1.0); CALCIUM 9.4 mg/dL (8.5-10.1); CO2 32 mmol/L (21-32); CREATININE 1.3 mg/dL (0.7-1.3); GLUCOSE,RANDOM 108 mg/dL (74-106); SGOT/AST 25 U/L (15-37); SGPT/ALT 28 U/L (12-78); TOT PROT 8.8 g/dl (6.4-8.2)
[2016-12-04] MEDS: KETOCONOZOLE 2% TOPICAL CREAM 15 GM TUBE TP SCH ×2 (10:36→22:38)
[2016-12-04] MEDS: PRENATAL VITAMINS W/ FOLIC ACID TABLET (FP) PO SCH (10:36)
[2016-12-04] MEDS: cloNIDine HCL 0.1 MG TABLET PO SCH ×2 (10:37→22:37)
[2016-12-04] MEDS: NICOTINE 21 MG/24 HOURS TOPICAL PATCH TD SCH (10:38)
[2016-12-04] MEDS: FLUoxetine HCL 20 MG CAPSULE (FP) PO SCH (10:38)
--- NOTE | 2016-12-04 10:47 | PN ---
S COWS - Scale Resting Pulse: 1= [place] 81-100 Sweatin= Chills/Flushing Restless Observation: 3= Extraneous Movement Pupil Size: 1= Pupils >than Normal Bone or Joint Aches: 2= Severe Diffuse Aches Runny Nose/ Eye Tearin= Runny Nose/Eyes GI Upset > 30mins: 2= Nausea/Diarrhea Tremor Observation of Outstretched Hands: 2= Slight Tremor Visible Yawning Observation: 1= 1-2x During Session Anxiety or Irritability: 2=Irritable/Anxious Goose Flesh Skin: 0=Smooth Skin COWS Score: 17 S Progress Note (SOAP) Subjective: ALERT,IRRITABLE,ANXIOUS,INTERRUPTED SLEEP,TREMOR,PAIN IN THE BODY AND BACK Objective: 12/04/16 10:45 12/04/16 10:45 Vital Signs Temperature 97 F L 12/04/16 09:26 Pulse Rate 91 H 12/04/16 09:26 Respiratory Rate 18 12/04/16 09:26 Blood Pressure 134/80 12/04/16 09:26 O2 Sat by Pulse Oximetry (%) EKG NSR 79/MIN Laboratory Last Values WBC 9.5 K/mm3 (4.0-10.0) D 12/04/16 06:00 RBC 5.22 M/mm3 (4.00-5.60) 12/04/16 06:00 Hgb 15.7 GM/dL (11.7-16.9) 12/04/16 06:00 Hct 47.0 % (35.4-49) 12/04/16 06:00 MCV 90.0 fl (80-96) 12/04/16 06:00 MCH 30.0 pg (25.7-33.7) 12/04/16 06:00 MCHC 33.3 g/dl (32.0-35.9) 12/04/16 06:00 RDW 13.5 % (11.9-15.9) 12/04/16 06:00 Plt Count 382 K/MM3 (134-434) D 12/04/16 06:00 MPV 11.4 fl (7.5-11.1) H 12/04/16 06:00 Sodium 136 mmol/L (136-145) 12/04/16 06:00 Potassium 3.7 mmol/L (3.5-5.1) 12/04/16 06:00 Chloride 97 mmol/L (98-107) L 12/04/16 06:00 Carbon Dioxide 32 mmol/L (21-32) 12/04/16 06:00 Anion Gap 7 (8-16) L 12/04/16 06:00 BUN 9 mg/dL (7-18) D 12/04/16 06:00 Creatinine 1.3 mg/dL (0.7-1.3) 12/04/16 06:00 Creat Clearance w eGFR > 60 (>60) 12/04/16 06:00 Random Glucose 108 mg/dL (74-106) H 12/04/16 06:00 Calcium 9.4 mg/dL (8.5-10.1) 12/04/16 06:00 Total Bilirubin 0.8 mg/dL (0.2-1.0) D 12/04/16 06:00 AST 25 U/L (15-37) D 12/04/16 06:00 ALT 28 U/L (12-78) D 12/04/16 06:00 Alkaline Phosphatase 88 U/L (45-117) 12/04/16 06:00 Total Protein 8.8 g/dl (6.4-8.2) H 12/04/16 06:00 Albumin 4.5 g/dl (3.4-5.0) D 12/04/16 06:00 Urine Color Yellow 12/03/16 14:55 Urine Appearance Clear 12/03/16 14:55 Urine pH 5.0 (5.0-8.0) 12/03/16 14:55 Ur Specific [place] >= 1.030 (1.005-1.025) H 12/03/16 14:55 Urine Protein 1+ (NEGATIVE) H 12/03/16 14:55 Urine Glucose (UA) Negative (NEGATIVE) 12/03/16 14:55 Urine Ketones Trace (NEGATIVE) H 12/03/16 14:55 Urine Blood Negative (NEGATIVE) 12/03/16 14:55 Urine Nitrite Negative (NEGATIVE) 12/03/16 14:55 Urine Bilirubin Negative (NEGATIVE) 12/03/16 14:55 Urine Urobilinogen Negative mg/dL (0.2-1.0) 12/03/16 14:55 Ur Leukocyte Esterase Negative (NEGATIVE) 12/03/16 14:55 Urine RBC 2 /hpf (0-3) 12/03/16 14:55 Urine WBC 1 /hpf (3-5) 12/03/16 14:55 Ur Epithelial Cells Rare /hpf (FEW) 12/03/16 14:55 Urine Mucus Few 12/03/16 14:55 Assessment: 12/04/16 10:46 WITHDRAWAL SYMPTOM Plan: CONTINUE DETOX
--- NOTE | 2016-12-04 11:30 | EKG ---
Test Reason : Blood Pressure : / mmHG Vent. Rate : 079 BPM Atrial Rate : 079 BPM P-R Int : 156 ms QRS Dur : 086 ms QT Int : 380 ms P-R-T Axes : 071 055 048 degrees QTc Int : 435 ms NORMAL SINUS RHYTHM RIGHT ATRIAL ENLARGEMENT BORDERLINE ECG WHEN COMPARED WITH ECG OF 23-OCT-2016 18:28, NO SIGNIFICANT CHANGE WAS FOUND Confirmed by HENRY ALY MD ([id number]) on 12/04/2016 11:29:59 AM Referred By: Dave Markham Confirmed By:HENRY ALY MD
[2016-12-04] MEDS: QUEtiapine FUMARATE 100 MG TABLET (FP) PO SCH (22:37)
[2016-12-04] MEDS: traZODone HCL 50 MG TABLET (FP) PO SCH (22:37)
[2016-12-04] MEDS: THIAMINE HCL 100 MG TABLET (FP) PO SCH (22:37)
[2016-12-05] MEDS: diphenhydrAMINE HCL 50 MG CAPSULE PO PRN (02:17)
[2016-12-05] MEDS: diazePAM 5 MG TABLET PO PRN ×4 (02:18→22:14)
[2016-12-05] MEDS: CYCLOBENZAPRINE HCL 10 MG TABLET (FP) PO PRN ×2 (05:52→22:13)
[2016-12-05] MEDS: hydrOXYzine PAMOATE 50 MG CAPSULE (FP) PO PRN (05:52)
[2016-12-05] MEDS ORDERED: METHADONE HCL 5 MG TABLET (FOR DETOX USE ONLY) PO ONE (10:00)
[2016-12-05] MEDS: KETOCONOZOLE 2% TOPICAL CREAM 15 GM TUBE TP SCH ×2 (10:35→22:13)
[2016-12-05] MEDS: FLUoxetine HCL 20 MG CAPSULE (FP) PO SCH (10:38)
[2016-12-05] MEDS: cloNIDine HCL 0.1 MG TABLET PO SCH ×2 (10:38→22:13)
[2016-12-05] MEDS: PRENATAL VITAMINS W/ FOLIC ACID TABLET (FP) PO SCH (10:38)
[2016-12-05] MEDS: NICOTINE 21 MG/24 HOURS TOPICAL PATCH TD SCH (10:38)
--- NOTE | 2016-12-05 11:38 | PN ---
S COWS - Scale Resting Pulse: 1= [place] 81-100 Sweatin= Chills/Flushing Restless Observation: 3= Extraneous Movement Pupil Size: 1= Pupils >than Normal Bone or Joint Aches: 2= Severe Diffuse Aches Runny Nose/ Eye Tearin= Runny Nose/Eyes GI Upset > 30mins: 2= Nausea/Diarrhea Tremor Observation of Outstretched Hands: 2= Slight Tremor Visible Yawning Observation: 1= 1-2x During Session Anxiety or Irritability: 2=Irritable/Anxious Goose Flesh Skin: 0=Smooth Skin COWS Score: 17 S Progress Note (SOAP) Subjective: ALERT,IRRITABLE,ANXIOUS,INTERRUPTED SLEEP,TREMOR,PAIN I THE BODY AND BACK Objective: 12/05/16 11:36 Vital Signs Temperature 96.3 F L 12/05/16 10:00 Pulse Rate 92 H 12/05/16 10:00 Respiratory Rate 18 12/05/16 10:00 Blood Pressure 122/75 12/05/16 10:00 O2 Sat by Pulse Oximetry (%) Laboratory Last Values WBC 9.5 K/mm3 (4.0-10.0) D 12/04/16 06:00 RBC 5.22 M/mm3 (4.00-5.60) 12/04/16 06:00 Hgb 15.7 GM/dL (11.7-16.9) 12/04/16 06:00 Hct 47.0 % (35.4-49) 12/04/16 06:00 MCV 90.0 fl (80-96) 12/04/16 06:00 MCH 30.0 pg (25.7-33.7) 12/04/16 06:00 MCHC 33.3 g/dl (32.0-35.9) 12/04/16 06:00 RDW 13.5 % (11.9-15.9) 12/04/16 06:00 Plt Count 382 K/MM3 (134-434) D 12/04/16 06:00 MPV 11.4 fl (7.5-11.1) H 12/04/16 06:00 Sodium 136 mmol/L (136-145) 12/04/16 06:00 Potassium 3.7 mmol/L (3.5-5.1) 12/04/16 06:00 Chloride 97 mmol/L (98-107) L 12/04/16 06:00 Carbon Dioxide 32 mmol/L (21-32) 12/04/16 06:00 Anion Gap 7 (8-16) L 12/04/16 06:00 BUN 9 mg/dL (7-18) D 12/04/16 06:00 Creatinine 1.3 mg/dL (0.7-1.3) 12/04/16 06:00 Creat Clearance w eGFR > 60 (>60) 12/04/16 06:00 Random Glucose 108 mg/dL (74-106) H 12/04/16 06:00 Calcium 9.4 mg/dL (8.5-10.1) 12/04/16 06:00 Total Bilirubin 0.8 mg/dL (0.2-1.0) D 12/04/16 06:00 AST 25 U/L (15-37) D 12/04/16 06:00 ALT 28 U/L (12-78) D 12/04/16 06:00 Alkaline Phosphatase 88 U/L (45-117) 12/04/16 06:00 Total Protein 8.8 g/dl (6.4-8.2) H 12/04/16 06:00 Albumin 4.5 g/dl (3.4-5.0) D 12/04/16 06:00 Urine Color Yellow 12/03/16 14:55 Urine Appearance Clear 12/03/16 14:55 Urine pH 5.0 (5.0-8.0) 12/03/16 14:55 Ur Specific [place] >= 1.030 (1.005-1.025) H 12/03/16 14:55 Urine Protein 1+ (NEGATIVE) H 12/03/16 14:55 Urine Glucose (UA) Negative (NEGATIVE) 12/03/16 14:55 Urine Ketones Trace (NEGATIVE) H 12/03/16 14:55 Urine Blood Negative (NEGATIVE) 12/03/16 14:55 Urine Nitrite Negative (NEGATIVE) 12/03/16 14:55 Urine Bilirubin Negative (NEGATIVE) 12/03/16 14:55 Urine Urobilinogen Negative mg/dL (0.2-1.0) 12/03/16 14:55 Ur Leukocyte Esterase Negative (NEGATIVE) 12/03/16 14:55 Urine RBC 2 /hpf (0-3) 12/03/16 14:55 Urine WBC 1 /hpf (3-5) 12/03/16 14:55 Ur Epithelial Cells Rare /hpf (FEW) 12/03/16 14:55 Urine Mucus Few 12/03/16 14:55 RPR Titer Nonreactive (NONREACTIVE) 12/04/16 06:00 Assessment: 12/05/16 11:37 WITHDRAWAL SYMPTOM Plan: CONTINUE DETOX
[2016-12-05] MEDS: traZODone HCL 50 MG TABLET (FP) PO SCH (22:13)
[2016-12-05] MEDS: QUEtiapine FUMARATE 100 MG TABLET (FP) PO SCH (22:14)
[2016-12-05] MEDS: THIAMINE HCL 100 MG TABLET (FP) PO SCH (22:14)
[2016-12-05] MEDS: MAG HYDROX/AL HYDROX/SIMETH 30 ML UNIT-DOSE CUP PO PRN (22:44)
[2016-12-06] MEDS: diazePAM 5 MG TABLET PO PRN ×2 (06:54→11:28)
[2016-12-06] MEDS ORDERED: METHADONE HCL 5 MG TABLET (FOR DETOX USE ONLY) PO ONE (10:00)
[2016-12-06] MEDS: cloNIDine HCL 0.1 MG TABLET PO SCH ×2 (10:23→22:14)
[2016-12-06] MEDS: FLUoxetine HCL 20 MG CAPSULE (FP) PO SCH (10:23)
[2016-12-06] MEDS: NICOTINE 21 MG/24 HOURS TOPICAL PATCH TD SCH (10:24)
[2016-12-06] MEDS: PRENATAL VITAMINS W/ FOLIC ACID TABLET (FP) PO SCH (10:24)
[2016-12-06] MEDS: KETOCONOZOLE 2% TOPICAL CREAM 15 GM TUBE TP SCH ×2 (10:24→22:15)
--- NOTE | 2016-12-06 13:23 | PN ---
[facility] Progress Note (SOAP) Subjective: ALERT,IRRITABLE,ANXIOUS,INTERRUPTED SLEEP,PAIN IN THE BODY Objective: 12/06/16 13:22 Vital Signs Temperature 97.7 F 12/06/16 10:08 Pulse Rate 87 12/06/16 10:08 Respiratory Rate 20 12/06/16 10:08 Blood Pressure 122/63 12/06/16 10:08 O2 Sat by Pulse Oximetry (%) Assessment: 12/06/16 13:22 WITHDRAWAL SYMPTOM Plan: CONTINUE DETOX
[2016-12-06] MEDS: hydrOXYzine PAMOATE 50 MG CAPSULE (FP) PO PRN (18:54)
[2016-12-06] MEDS: THIAMINE HCL 100 MG TABLET (FP) PO SCH (22:14)
[2016-12-06] MEDS: traZODone HCL 50 MG TABLET (FP) PO SCH (22:15)
[2016-12-06] MEDS: CYCLOBENZAPRINE HCL 10 MG TABLET (FP) PO PRN (22:15)
[2016-12-06] MEDS: QUEtiapine FUMARATE 100 MG TABLET (FP) PO SCH (22:15)
[2016-12-07] MEDS: diphenhydrAMINE HCL 50 MG CAPSULE PO PRN (01:03)
[2016-12-07] MEDS ORDERED: METHADONE HCL 10 MG TABLET (FOR DETOX USE ONLY) PO ONE (10:00)
[2016-12-07] MEDS: PRENATAL VITAMINS W/ FOLIC ACID TABLET (FP) PO SCH (10:11)
[2016-12-07] MEDS: FLUoxetine HCL 20 MG CAPSULE (FP) PO SCH (10:11)
[2016-12-07] MEDS: cloNIDine HCL 0.1 MG TABLET PO SCH ×2 (10:11→22:36)
[2016-12-07] MEDS: hydrOXYzine PAMOATE 50 MG CAPSULE (FP) PO PRN (10:12)
[2016-12-07] MEDS: NICOTINE 21 MG/24 HOURS TOPICAL PATCH TD SCH (10:12)
[2016-12-07] MEDS: CYCLOBENZAPRINE HCL 10 MG TABLET (FP) PO PRN ×2 (10:12→22:35)
[2016-12-07] MEDS: KETOCONOZOLE 2% TOPICAL CREAM 15 GM TUBE TP SCH ×2 (10:12→22:35)
--- NOTE | 2016-12-07 13:26 | PN ---
[facility] Progress Note (SOAP) Subjective: ALERT,INTERRUPTED SLEEP,PAIN IN THE BODY Objective: 12/07/16 13:25 Vital Signs Temperature 98.1 F 12/07/16 10:33 Pulse Rate 80 12/07/16 10:33 Respiratory Rate 18 12/07/16 10:33 Blood Pressure 131/60 12/07/16 10:33 O2 Sat by Pulse Oximetry (%) Assessment: 12/07/16 13:25 WITHDRAWAL SYMPTOM Plan: CONTINUE DETOX,DISCHARGE IN AM
[2016-12-07] MEDS: MAG HYDROX/AL HYDROX/SIMETH 30 ML UNIT-DOSE CUP PO PRN (19:15)
[2016-12-07] MEDS: THIAMINE HCL 100 MG TABLET (FP) PO SCH (22:35)
[2016-12-07] MEDS: traZODone HCL 50 MG TABLET (FP) PO SCH (22:36)
[2016-12-07] MEDS: QUEtiapine FUMARATE 100 MG TABLET (FP) PO SCH (22:36)
[2016-12-08] MEDS ORDERED: METHADONE HCL 5 MG TABLET (FOR DETOX USE ONLY) PO ONE (06:00)
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
[2016-12-08 10:00] VITALS: BP 119/69; PULSE 85; TEMP 96.1
[2016-12-08] MEDS: KETOCONOZOLE 2% TOPICAL CREAM 15 GM TUBE TP SCH (11:29)
[2016-12-08] MEDS: NICOTINE 21 MG/24 HOURS TOPICAL PATCH TD SCH (11:29)
[2016-12-08] MEDS: cloNIDine HCL 0.1 MG TABLET PO SCH (11:29)
[2016-12-08] MEDS: PRENATAL VITAMINS W/ FOLIC ACID TABLET (FP) PO SCH (11:29)
[2016-12-08] MEDS: FLUoxetine HCL 20 MG CAPSULE (FP) PO SCH (11:29)
== END 2016-12-08 11:38 | disposition home or self-care (01) | DRG 773 ==
LOC: YASAS 09:39 → Y6N 12:30
PROVIDERS: ADMIT Internal Medicine; ATTEND Internal Medicine
PROC: HZ2ZZZZ Detoxification Services for Substance Abuse Treatment (ICD-10-PCS; principal; 2016-12-03)
DX: F11.23 Opioid dependence with withdrawal (principal); F14.20 Cocaine dependence, uncomplicated; F17.210 Nicotine dependence, cigarettes, uncomplicated; F31.9 Bipolar disorder, unspecified; F25.9 Schizoaffective disorder, unspecified; F20.0 Paranoid schizophrenia; F32.9 Major depressive disorder, single episode, unspecified; F19.24 Other psychoactive substance dependence with psychoactive substance-induced mood disorder; F43.10 Post-traumatic stress disorder, unspecified; L30.9 Dermatitis, unspecified; G47.00 Insomnia, unspecified; K13.70 Unspecified lesions of oral mucosa; R07.9 Chest pain, unspecified; B35.3 Tinea pedis; J45.909 Unspecified asthma, uncomplicated; Z87.898 Personal history of other specified conditions; Z87.828 Personal history of other (healed) physical injury and trauma; Z91.012 Allergy to eggs; Z91.011 Allergy to milk products; Z87.438 Personal history of other diseases of male genital organs; Z91.5 Personal history of self-harm
CPT/HCPCS: 36415; 80053; 81003; 81015; 85027; 86593; 93005; 93010

== ENCOUNTER 2017-02-21 09:19 | Inpatient (IN) | payer OTHER ==
[2017-02-21 09:51] VITALS: BMI 25.4
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
[2017-02-21] MEDS ORDERED: hydrOXYzine PAMOATE 50 MG CAPSULE (FP) PO PRN (10:14)
[2017-02-21] MEDS ORDERED: MAGNESIUM HYDROX 2400MG/30ML ORAL SUSPENSION 30 ML CUP PO PRN (10:14)
[2017-02-21] MEDS ORDERED: MAG HYDROX/AL HYDROX/SIMETH 30 ML UNIT-DOSE CUP PO PRN (10:14)
[2017-02-21] MEDS ORDERED: ACETAMINOPHEN 325 MG TABLET (FP) PO PRN (10:14)
[2017-02-21] MEDS ORDERED: guaiFENesin/D-METHORPHAN HB 10 ML UNIT-DOSE CUPS PO PRN (10:14)
[2017-02-21] MEDS ORDERED: MENTHOL/PHENOL 1 EACH UD MM PRN (10:14)
[2017-02-21] MEDS ORDERED: P-EPHED 60MG/TRIPROLIDI 2.5MG TABLET PO PRN (10:14)
[2017-02-21] MEDS ORDERED: MAGNESIUM CITRATE 300 ML BOTTLE PO PRN (10:14)
[2017-02-21] MEDS ORDERED: LOPERAMIDE HCL 2 MG CAPSULE PO PRN (10:14)
[2017-02-21] MEDS ORDERED: METHADONE HCL 10 MG TABLET (FOR DETOX USE ONLY) PO ONE ×2 (13:00→23:00)
[2017-02-21 15:14] LABS: URINE APPEARANCE CLEAR; URINE BILIRUBIN NEGATIVE (NEGATIVE); URINE BLOOD NEGATIVE (NEGATIVE); URINE COLOR YELLOW; URINE GLUCOSE (UA) NEGATIVE (NEGATIVE); URINE KETONE NEGATIVE (NEGATIVE); URINE NITRITE NEGATIVE (NEGATIVE); URINE PROTEIN NEGATIVE (NEGATIVE); URINE UROBILINOGEN NEGATIVE mg/dL (0.2-1.0)
[2017-02-21] MEDS ORDERED: METHADONE HCL 10 MG TABLET (FOR DETOX USE ONLY) ONE (15:15)
[2017-02-21] MEDS: NICOTINE 21 MG/24 HOURS TOPICAL PATCH TD SCH (15:20)
[2017-02-21] MEDS: diazePAM 5 MG TABLET PO PRN ×2 (15:20→22:55)
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
[2017-02-21 17:51] LABS: URINE LEUK ESTERASE Negative (NEGATIVE)
[2017-02-21] MEDS ORDERED: diphenhydrAMINE HCL 50 MG CAPSULE PO PRN (22:00)
[2017-02-21] MEDS: ZOLPIDEM TARTRATE 5 MG TABLET PO PRN (22:53)
[2017-02-21] MEDS: THIAMINE HCL 100 MG TABLET (FP) PO SCH (22:54)
[2017-02-22] MEDS: diazePAM 5 MG TABLET PO PRN ×3 (09:13→19:14)
[2017-02-22 09:53] LABS: MCH 28.9 pg (25.7-33.7); MCHC 33.1 g/dl (32.0-35.9); MEAN CELL VOLUME 87.3 fl (80-96); MEAN PLT VOLUME 10.3 fl (7.5-11.1); PLATELET COUNT 335 K/MM3 (134-434); RDW 13.7 % (11.9-15.9); WHITE BLOOD COUNT 9.4 K/mm3 (4.0-10.0)
[2017-02-22] MEDS ORDERED: METHADONE HCL 10 MG TABLET (FOR DETOX USE ONLY) PO ONE (10:00)
[2017-02-22] MEDS ORDERED: PRENATAL VITAMINS W/ FOLIC ACID TABLET (FP) PO SCH (10:00)
[2017-02-22 10:20] LABS: ALBUMIN 3.1 g/dl (3.4-5.0); ALK PHOS 72 U/L (45-117); ANION GAP 9 (8-16); BILIRUBIN,TOTAL 0.5 mg/dL (0.2-1.0); CALCIUM 8.2 mg/dL (8.5-10.1); CO2 25 mmol/L (21-32); CREATININE 0.8 mg/dL (0.7-1.3); GLUCOSE,RANDOM 87 mg/dL (74-106); SGOT/AST 9 U/L (15-37); SGPT/ALT 18 U/L (12-78); TOT PROT 6.9 g/dl (6.4-8.2)
[2017-02-22] MEDS: NICOTINE 21 MG/24 HOURS TOPICAL PATCH TD SCH (10:54)
--- NOTE | 2017-02-22 11:03 | EKG ---
Test Reason : Blood Pressure : / mmHG Vent. Rate : 069 BPM Atrial Rate : 069 BPM P-R Int : 170 ms QRS Dur : 086 ms QT Int : 390 ms P-R-T Axes : 046 045 030 degrees QTc Int : 417 ms NORMAL SINUS RHYTHM NORMAL ECG WHEN COMPARED WITH ECG OF 03-DEC-2016 12:14, NO SIGNIFICANT CHANGE WAS FOUND BASELINE ARTIFACT Confirmed by ZOILA LIRA MD ([id number]) on 02/22/2017 11:02:54 AM Referred By: Confirmed By:ZOILA LIRA MD
[2017-02-22 11:13] LABS: HIV 1 & 2 AB NEGATIVE; HIV 1 AGp24 NEGATIVE
[2017-02-22] MEDS: BACITRACIN 0.9 GM PACKET TP SCH ×2 (15:10→22:34)
[2017-02-22] MEDS: NYSTATIN 500,000 UNITS/5 ML SUSPENSION PO SCH ×2 (15:11→22:34)
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
[2017-02-22] MEDS: IBUPROFEN 400 MG TABLET (FP) PO PRN (20:30)
[2017-02-22] MEDS: THIAMINE HCL 100 MG TABLET (FP) PO SCH (22:34)
[2017-02-22] MEDS: ZOLPIDEM TARTRATE 5 MG TABLET PO PRN (22:34)
[2017-02-23] MEDS: diazePAM 5 MG TABLET PO PRN ×2 (02:07→05:57)
[2017-02-23] MEDS: IBUPROFEN 400 MG TABLET (FP) PO PRN (02:39)
[2017-02-23] MEDS: NYSTATIN 500,000 UNITS/5 ML SUSPENSION PO SCH (05:29)
[2017-02-23 09:13] VITALS: BP 136/92; PULSE 75; TEMP 97.4
[2017-02-23] MEDS ORDERED: METHADONE HCL 5 MG TABLET (FOR DETOX USE ONLY) PO ONE (10:00)
--- NOTE | 2017-02-23 11:59 | DS ---
[facility] Detox Discharge Summary Admission Date: 02/21/17 Discharge Date: 02/23/17 - History Present History: Cocaine Dependence, Opioid Dependence Additional Comments: PATIENT HAS PERSONAL ISSUE TO ATTEND TO AND DOES NOT WISH TO STAY TO COMPLETE DETOX REGIMEN. RISKS OF LEAVING DETOX UNIT PRIOR TO COMPLETION OF DETOX REGIMEN DISCUSSED WITH PATIENT. PATIENT ADVISED TO GO IMMEDIATELY TO NEAREST ER SHOULD ANY INTOLERABLE DETOX SYMPTOMS DEVELOP AT ANY TIME. PATIENT LEFT DETOX UNIT IN STABLE MEDICAL CONDITION. Pertinent Past History: Insomnia, Bipolar disorder, Schizoaffective Disorder, Nicotine Dependence, Eczema. - Physical Exam Results Vital Signs: Vital Signs Temperature 97.4 F L 02/23/17 09:13 Pulse Rate 75 02/23/17 09:13 Respiratory Rate 20 02/23/17 09:13 Blood Pressure 136/92 02/23/17 09:13 O2 Sat by Pulse Oximetry (%) Pertinent Admission Physical Exam Findings: WITHDRAWAL SYMPTOMS. Laboratory Tests 02/21/17 02/22/17 02/22/17 13:50 07:30 07:30 WBC 9.4 RBC 4.87 Hgb 14.1 D Hct 42.5 MCV 87.3 MCH 28.9 MCHC 33.1 RDW 13.7 Plt Count 335 MPV 10.3 Sodium 139 Potassium 4.0 Chloride 105 Carbon Dioxide 25 D Anion Gap 9 BUN 10 Creatinine 0.8 D Creat Clearance w eGFR > 60 Random Glucose 87 Calcium 8.2 L Total Bilirubin 0.5 D AST 9 L D ALT 18 D Alkaline Phosphatase 72 Total Protein 6.9 D Albumin 3.1 L D Urine Color Yellow Urine Appearance Clear Urine pH 5.0 Ur Specific [place] 1.025 Urine Protein Negative Urine Glucose (UA) Negative Urine Ketones Negative Urine Blood Negative Urine Nitrite Negative Urine Bilirubin Negative Urine Urobilinogen Negative Ur Leukocyte Esterase Negative RPR Titer HIV 1&2 Antibody Screen HIV P24 Antigen 02/22/17 02/22/17 07:30 07:40 WBC RBC Hgb Hct MCV MCH MCHC RDW Plt Count MPV Sodium Potassium Chloride Carbon Dioxide Anion Gap BUN Creatinine Creat Clearance w eGFR Random Glucose Calcium Total Bilirubin AST ALT Alkaline Phosphatase Total Protein Albumin Urine Color Urine Appearance Urine pH Ur Specific [place] Urine Protein Urine Glucose (UA) Urine Ketones Urine Blood Urine Nitrite Urine Bilirubin Urine Urobilinogen Ur Leukocyte Esterase RPR Titer Nonreactive HIV 1&2 Antibody Screen Negative HIV P24 Antigen Negative LABS NOTED. - Treatment Hospital Course: Detoxed Safely - Medication Discharge Medications: Ambulatory Orders Benztropine Mesylate [Cogentin -] 2 mg PO HS #30 tablet 11/20/15 Risperidone [Risperdal] 3 mg PO HS #30 tablet 11/20/15 Quetiapine Fumarate [Seroquel -] 200 mg PO HS #30 tab 07/14/16 Trazodone HCl 50 mg PO HS #30 tablet 12/03/16 - Diagnosis (1) Cocaine dependence Status: Acute Qualifiers: Substance use status: uncomplicated Qualified Code(s): F14.20 - Cocaine dependence, uncomplicated; F14.20 - Cocaine dependence, uncomplicated; F14.20 - Cocaine dependence, uncomplicated (2) Insomnia Status: Acute Qualifiers: Insomnia type: unspecified Qualified Code(s): G47.00 - Insomnia, unspecified; G47.00 - Insomnia, unspecified (3) Nicotine dependence Status: Acute Qualifiers: Nicotine product type: cigarettes Substance use status: uncomplicated Qualified Code(s): F17.210 - Nicotine dependence, cigarettes, uncomplicated; F17.210 - Nicotine dependence, cigarettes, uncomplicated (4) Opioid dependence with withdrawal Status: Acute (5) Substance induced mood disorder Status: Acute (6) Weight loss Status: Acute (7) Eczema Status: Chronic Qualifiers: Eczema type: unspecified Qualified Code(s): L30.9 - Dermatitis, unspecified; L30.9 - Dermatitis, unspecified (8) Schizoaffective disorder Status: Chronic Qualifiers: Schizoaffective disorder type: unspecified Qualified Code(s): F25.9 - Schizoaffective disorder, unspecified; F25.9 - Schizoaffective disorder, unspecified; F25.9 - Schizoaffective disorder, unspecified; F25.9 - Schizoaffective disorder, unspecified - AMA Did Patient Leave Against Medical Advice: Yes (PT. HAD PERSONAL ISSUE AND DI NOT WISH TO STAY TO COMPETE DETOX REGIMEN.)
[2017-02-24] MEDS ORDERED: METHADONE HCL 5 MG TABLET (FOR DETOX USE ONLY) PO ONE (10:00)
[2017-02-25] MEDS ORDERED: METHADONE HCL 10 MG TABLET (FOR DETOX USE ONLY) PO ONE (10:00)
[2017-02-26] MEDS ORDERED: METHADONE HCL 5 MG TABLET (FOR DETOX USE ONLY) PO ONE (06:00)
== END 2017-02-23 10:55 | disposition left against medical advice (07) | DRG 770 ==
LOC: YASAS 09:19 → Y3N 12:43
PROVIDERS: ADMIT Internal Medicine; ATTEND Internal Medicine
PROC: HZ2ZZZZ Detoxification Services for Substance Abuse Treatment (ICD-10-PCS; principal; 2017-02-21)
DX: F11.23 Opioid dependence with withdrawal (principal); F14.20 Cocaine dependence, uncomplicated; F17.210 Nicotine dependence, cigarettes, uncomplicated; F19.24 Other psychoactive substance dependence with psychoactive substance-induced mood disorder; F25.9 Schizoaffective disorder, unspecified; L30.9 Dermatitis, unspecified; G47.00 Insomnia, unspecified; Z91.012 Allergy to eggs; Z91.011 Allergy to milk products; Z87.898 Personal history of other specified conditions; Z87.438 Personal history of other diseases of male genital organs; Z91.5 Personal history of self-harm
CPT/HCPCS: 36415; 80053; 81003; 85027; 86593; 87389; 93005; 93010

== ENCOUNTER 2017-04-30 10:37 | Inpatient (IN) | payer OTHER ==
[2017-04-30 13:03] VITALS: BMI 25.2
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
[2017-04-30] MEDS ORDERED: MAGNESIUM HYDROX 2400MG/30ML ORAL SUSPENSION 30 ML CUP PO PRN (15:54)
[2017-04-30] MEDS ORDERED: IBUPROFEN 400 MG TABLET (FP) PO PRN (15:54)
[2017-04-30] MEDS ORDERED: MAG HYDROX/AL HYDROX/SIMETH 30 ML UNIT-DOSE CUP PO PRN (15:54)
[2017-04-30] MEDS ORDERED: ACETAMINOPHEN 325 MG TABLET (FP) PO PRN (15:54)
[2017-04-30] MEDS ORDERED: LOPERAMIDE HCL 2 MG CAPSULE PO PRN (15:54)
[2017-04-30] MEDS ORDERED: MAGNESIUM CITRATE 300 ML BOTTLE PO PRN (15:54)
[2017-04-30] MEDS ORDERED: P-EPHED 60MG/TRIPROLIDI 2.5MG TABLET PO PRN (15:54)
[2017-04-30] MEDS ORDERED: NICOTINE POLACRILEX 2 MG GUM BUC PRN (16:01)
[2017-04-30] MEDS ORDERED: METHADONE HCL 10 MG TABLET (FOR DETOX USE ONLY) PO ONE ×2 (17:30→23:00)
[2017-04-30] MEDS: diazePAM 5 MG TABLET PO PRN ×2 (18:20→22:20)
[2017-04-30] MEDS: NICOTINE 14 MG/24 HOURS TOPICAL PATCH TD SCH (18:58)
[2017-04-30 21:00] LABS: URINE APPEARANCE CLEAR; URINE BILIRUBIN NEGATIVE (NEGATIVE); URINE BLOOD NEGATIVE (NEGATIVE); URINE COLOR YELLOW; URINE GLUCOSE (UA) NEGATIVE (NEGATIVE); URINE KETONE NEGATIVE (NEGATIVE); URINE LEUK ESTERASE NEGATIVE (NEGATIVE); URINE NITRITE NEGATIVE (NEGATIVE); URINE PROTEIN NEGATIVE (NEGATIVE)
[2017-04-30] MEDS: THIAMINE HCL 100 MG TABLET (FP) PO SCH (22:18)
[2017-04-30] MEDS: BACITRACIN 0.9 GM PACKET TP SCH (22:20)
[2017-05-01] MEDS: diazePAM 5 MG TABLET PO PRN ×4 (04:27→22:20)
[2017-05-01 09:56] LABS: ALBUMIN 3.4 g/dl (3.4-5.0); ANION GAP 5 (8-16); BLOOD UREA NITROGEN 10 mg/dL (7-18); CALCIUM 8.4 mg/dL (8.5-10.1); CHLORIDE 102 mmol/L (98-107); CO2 30 mmol/L (21-32); CREATININE 0.9 mg/dL (0.7-1.3); GLUCOSE,RANDOM 86 mg/dL (74-106); SGOT/AST 19 U/L (15-37); SGPT/ALT 31 U/L (12-78); SODIUM 137 mmol/L (136-145)
[2017-05-01 09:57] LABS: ALK PHOS 79 U/L (45-117); BILIRUBIN,TOTAL 0.4 mg/dL (0.2-1.0); HEMATOCRIT 42.9 % (35.4-49); HEMOGLOBIN 13.7 GM/dL (11.7-16.9); MCHC 31.9 g/dl (32.0-35.9); MEAN CELL VOLUME 87.6 fl (80-96); MEAN PLT VOLUME 11.2 fl (7.5-11.1); PLATELET COUNT 328 K/MM3 (134-434); RDW 14.1 % (11.9-15.9); TOT PROT 7.5 g/dl (6.4-8.2); WHITE BLOOD COUNT 8.6 K/mm3 (4.0-10.0)
[2017-05-01] MEDS ORDERED: METHADONE HCL 10 MG TABLET (FOR DETOX USE ONLY) PO ONE (10:00)
--- NOTE | 2017-05-01 10:03 | CONSULT ---
[facility] Psychiatric Consult - Data Date of interview: 05/01/17 Admission source: [facility] Identifying data: Pt is a 36 year old male, single, without kids and unemployed. Pt. admitted to for heroin and cocaine dependence. Substance Abuse History: Following information confirmed with Mr. Silva: moking Cessation. Smoking history: Current every day smoker. Have you smoked in the past 12 months: Yes. Aproximately how many cigarettes per day: 10. Cigars Per Day: 0. Hx Chewing Tobacco Use: No. Initiated information on smoking cessation: Yes. 'Breaking Loose' booklet given: 04/30/17 (GIVEN ON UNIT.). - Substance & Tx. History. Hx Alcohol Use: No. Hx Substance Use: Yes. Substance Use Type: Cocaine, Heroin. Hx Substance Use Treatment: Yes ( Previous Detox/Rehab admissions at [facility] (Last: 02/2017).). Heroin- Route: Injection Frequency: Daily. Amount used: 5 bags Age of first use: 33. Date of Last Use: 04/30/17. Cocaine- Route: Injection Frequency: Daily. Amount used: $50 Age of first use: 13. Date of Last Use: 04/29/17 Psychiatric History: Pt. reports multiple psychiatric hospitalizations with the most recent hospitalization at [facility] in 2013 for suicidal ideation. Pt. reports medication non adherence and does not have an outpatient psychiatrist. Pt. reports a h/o auditory hallucinations and command hallucinations. Reports he last endorsed command auditory hallucinations to hurt himself over one year ago. Claims he's able to deal with the voices by speaking to someone. Pt currently denies suicidal and homicidal ideation. Pt. denies h/o suicide attempts. Physical/Sexual Abuse/Trauma History: Denies. Mental Status Exam - Mental Status Exam Alert and Oriented to: Time, Place, Person Cognitive Function: Fair Patient Appearance: Unkempt Mood: Suspicious, Withdrawn Affect: Flat Patient Behavior: Guarded, Cooperative Speech Pattern: Appropriate Voice Loudness: Normal Thought Process: Goal Oriented Thought Disorder: Not Present Hallucinations: Denies Suicidal Ideation: Denies Homicidal Ideation: Denies Insight/Judgement: Poor Sleep: Poorly Appetite: Fair Muscle strength/Tone: Normal Gait/Station: Normal Psychiatric Findings - Problem List ([place] 1, 2,3) (1) Opioid dependence with withdrawal Current Visit: Yes Status: Acute (2) Cocaine dependence, uncomplicated Current Visit: Yes Status: Chronic (3) Cocaine dependence Current Visit: No Status: Acute Qualifiers: Substance use status: uncomplicated Qualified Code(s): F14.20 - Cocaine dependence, uncomplicated - Initial Treatment Plan Initial Treatment Plan: Psychoeduation provided. Detoxification in progress. 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
[2017-05-01] MEDS: BACITRACIN 0.9 GM PACKET TP SCH ×2 (10:09→22:20)
[2017-05-01] MEDS: PRENATAL VITAMINS W/ FOLIC ACID TABLET (FP) PO SCH (10:09)
[2017-05-01] MEDS: NICOTINE 14 MG/24 HOURS TOPICAL PATCH TD SCH (10:10)
--- NOTE | 2017-05-01 12:09 | PN ---
BHS COWS - Scale Resting Pulse: 0= [place] 80 or Below Sweatin= Chills/Flushing Restless Observation: 3= Extraneous Movement Pupil Size: 0= Normal to Room Light Bone or Joint Aches: 2= Severe Diffuse Aches Runny Nose/ Eye Tearin= Runny Nose/Eyes GI Upset > 30mins: 2= Nausea/Diarrhea Tremor Observation of Outstretched Hands: 2= Slight Tremor Visible Yawning Observation: 1= 1-2x During Session Anxiety or Irritability: 2=Irritable/Anxious Goose Flesh Skin: 0=Smooth Skin COWS Score: 15 BHS Progress Note (SOAP) Subjective: Sneezing, increased warmth (think he had a temperature), anxious, interrupted sleep Objective: 05/01/17 12:09 Last Vital Signs Temp Pulse Resp BP Pulse Ox 97.8 F 80 19 131/80 05/01/17 10:00 05/01/17 10:00 05/01/17 10:00 05/01/17 10:00 Laboratory Tests 04/30/17 05/01/17 05/01/17 18:30 06:05 06:05 WBC 8.6 RBC 4.90 Hgb 13.7 Hct 42.9 MCV 87.6 MCH 28.0 MCHC 31.9 L RDW 14.1 Plt Count 328 MPV 11.2 H Sodium 137 Potassium 4.0 Chloride 102 Carbon Dioxide 30 Anion Gap 5 L BUN 10 Creatinine 0.9 Creat Clearance w eGFR > 60 Random Glucose 86 Calcium 8.4 L Total Bilirubin 0.4 AST 19 D ALT 31 D Alkaline Phosphatase 79 Total Protein 7.5 Albumin 3.4 Urine Color Yellow Urine Appearance Clear Urine pH 6.0 Ur Specific [place] 1.030 Urine Protein Negative Urine Glucose (UA) Negative Urine Ketones Negative Urine Blood Negative Urine Nitrite Negative Urine Bilirubin Negative Urine Urobilinogen 2.0 Ur Leukocyte Esterase Negative RPR Titer 05/01/17 06:05 WBC RBC Hgb Hct MCV MCH MCHC RDW Plt Count MPV Sodium Potassium Chloride Carbon Dioxide Anion Gap BUN Creatinine Creat Clearance w eGFR Random Glucose Calcium Total Bilirubin AST ALT Alkaline Phosphatase Total Protein Albumin Urine Color Urine Appearance Urine pH Ur Specific [place] Urine Protein Urine Glucose (UA) Urine Ketones Urine Blood Urine Nitrite Urine Bilirubin Urine Urobilinogen Ur Leukocyte Esterase RPR Titer Nonreactive Labs noted Assessment: 05/01/17 12:11 Withdrawal symptoms Plan: Continue detox Encouraged to increase PO water intake for hydration
[2017-05-01] MEDS: guaiFENesin/D-METHORPHAN HB 10 ML UNIT-DOSE CUPS PO PRN ×2 (16:48→22:24)
[2017-05-01] MEDS: diphenhydrAMINE HCL 25 MG CAPSULE (FP) PO PRN (22:22)
[2017-05-01] MEDS: THIAMINE HCL 100 MG TABLET (FP) PO SCH (23:23)
[2017-05-02] MEDS: MENTHOL/PHENOL 1 EACH UD MM PRN ×2 (01:46→17:58)
[2017-05-02] MEDS: diazePAM 5 MG TABLET PO PRN ×4 (03:38→20:16)
[2017-05-02] MEDS: guaiFENesin/D-METHORPHAN HB 10 ML UNIT-DOSE CUPS PO PRN ×2 (03:39→15:00)
[2017-05-02] MEDS ORDERED: METHADONE HCL 5 MG TABLET (FOR DETOX USE ONLY) PO ONE (10:00)
[2017-05-02] MEDS: BACITRACIN 0.9 GM PACKET TP SCH ×2 (10:27→22:12)
[2017-05-02] MEDS: PRENATAL VITAMINS W/ FOLIC ACID TABLET (FP) PO SCH (10:27)
[2017-05-02] MEDS: NICOTINE 14 MG/24 HOURS TOPICAL PATCH TD SCH (10:28)
--- NOTE | 2017-05-02 11:30 | EKG ---
Test Reason : Blood Pressure : / mmHG Vent. Rate : 080 BPM Atrial Rate : 080 BPM P-R Int : 160 ms QRS Dur : 088 ms QT Int : 374 ms P-R-T Axes : 072 056 055 degrees QTc Int : 431 ms NORMAL SINUS RHYTHM NORMAL ECG WHEN COMPARED WITH ECG OF 30-APR-2017 16:47, NO SIGNIFICANT CHANGE WAS FOUND Confirmed by ZOILA LIRA MD ([id number]) on 05/02/2017 11:29:59 AM Referred By: Confirmed By:ZOILA LIRA MD
--- NOTE | 2017-05-02 11:32 | EKG ---
Test Reason : Blood Pressure : / mmHG Vent. Rate : 069 BPM Atrial Rate : 069 BPM P-R Int : 158 ms QRS Dur : 086 ms QT Int : 376 ms P-R-T Axes : 071 055 053 degrees QTc Int : 402 ms NORMAL SINUS RHYTHM WITH SINUS ARRHYTHMIA POSSIBLE LEFT ATRIAL ENLARGEMENT BORDERLINE ECG WHEN COMPARED WITH ECG OF 21-FEB-2017 14:12, NO SIGNIFICANT CHANGE WAS FOUND Confirmed by SORAYA JAMESON, ZOILA ([id number]) on 05/02/2017 11:32:20 AM Referred By: Confirmed By:ZOILA LIRA MD
--- NOTE | 2017-05-02 13:34 | PN ---
BHS COWS - Scale Resting Pulse: 1= [place] 81-100 Sweatin=Flushed/Facial Moisture Restless Observation: 1= Difficult to Sit Still Pupil Size: 0= Normal to Room Light Bone or Joint Aches: 1= Mild Discomfort Runny Nose/ Eye Tearin= Runny Nose/Eyes GI Upset > 30mins: 1= Stomach Cramp Tremor Observation of Outstretched Hands: 1= Tremor [place], Not Seen Yawning Observation: 0= None Anxiety or Irritability: 2=Irritable/Anxious Goose Flesh Skin: 0=Smooth Skin COWS Score: 11 BHS Progress Note (SOAP) Subjective: reports feeling anxious, sweats, sleeping problems Objective: 05/02/17 13:31 withdrawal sx Vital Signs Temperature 98.2 F 05/02/17 10:00 Pulse Rate 86 05/02/17 10:00 Respiratory Rate 18 05/02/17 10:00 Blood Pressure 131/73 05/02/17 10:00 O2 Sat by Pulse Oximetry (%) Laboratory Last Values WBC 8.6 K/mm3 (4.0-10.0) 05/01/17 06:05 RBC 4.90 M/mm3 (4.00-5.60) 05/01/17 06:05 Hgb 13.7 GM/dL (11.7-16.9) 05/01/17 06:05 Hct 42.9 % (35.4-49) 05/01/17 06:05 MCV 87.6 fl (80-96) 05/01/17 06:05 MCH 28.0 pg (25.7-33.7) 05/01/17 06:05 MCHC 31.9 g/dl (32.0-35.9) L 05/01/17 06:05 RDW 14.1 % (11.9-15.9) 05/01/17 06:05 Plt Count 328 K/MM3 (134-434) 05/01/17 06:05 MPV 11.2 fl (7.5-11.1) H 05/01/17 06:05 Sodium 137 mmol/L (136-145) 05/01/17 06:05 Potassium 4.0 mmol/L (3.5-5.1) 05/01/17 06:05 Chloride 102 mmol/L (98-107) 05/01/17 06:05 Carbon Dioxide 30 mmol/L (21-32) 05/01/17 06:05 Anion Gap 5 (8-16) L 05/01/17 06:05 BUN 10 mg/dL (7-18) 05/01/17 06:05 Creatinine 0.9 mg/dL (0.7-1.3) 05/01/17 06:05 Creat Clearance w eGFR > 60 (>60) 05/01/17 06:05 Random Glucose 86 mg/dL (74-106) 05/01/17 06:05 Calcium 8.4 mg/dL (8.5-10.1) L 05/01/17 06:05 Total Bilirubin 0.4 mg/dL (0.2-1.0) 05/01/17 06:05 AST 19 U/L (15-37) D 05/01/17 06:05 ALT 31 U/L (12-78) D 05/01/17 06:05 Alkaline Phosphatase 79 U/L (45-117) 05/01/17 06:05 Total Protein 7.5 g/dl (6.4-8.2) 05/01/17 06:05 Albumin 3.4 g/dl (3.4-5.0) 05/01/17 06:05 Urine Color Yellow 04/30/17 18:30 Urine Appearance Clear 04/30/17 18:30 Urine pH 6.0 (5.0-8.0) 04/30/17 18:30 Ur Specific [place] 1.030 (1.001-1.035) 04/30/17 18:30 Urine Protein Negative (NEGATIVE) 04/30/17 18:30 Urine Glucose (UA) Negative (NEGATIVE) 04/30/17 18:30 Urine Ketones Negative (NEGATIVE) 04/30/17 18:30 Urine Blood Negative (NEGATIVE) 04/30/17 18:30 Urine Nitrite Negative (NEGATIVE) 04/30/17 18:30 Urine Bilirubin Negative (NEGATIVE) 04/30/17 18:30 Urine Urobilinogen 2.0 mg/dL (0.2-1.0) 04/30/17 18:30 Ur Leukocyte Esterase Negative (NEGATIVE) 04/30/17 18:30 RPR Titer Nonreactive (NONREACTIVE) 05/01/17 06:05 Hepatitis C Antibody 0.2 s/co ratio (0.0-0.9) 05/01/17 06:05 HIV 1&2 Antibody Screen Negative 04/30/17 09:25 HIV P24 Antigen Negative 04/30/17 09:25 labs noted Assessment: 05/02/17 13:32 withdrawal symptoms Plan: continue detox
[2017-05-02] MEDS: diphenhydrAMINE HCL 25 MG CAPSULE (FP) PO PRN (22:12)
[2017-05-02] MEDS: THIAMINE HCL 100 MG TABLET (FP) PO SCH (22:12)
[2017-05-03] MEDS: diazePAM 5 MG TABLET PO PRN ×2 (05:38→10:24)
[2017-05-03] MEDS: MENTHOL/PHENOL 1 EACH UD MM PRN (05:39)
[2017-05-03] MEDS: guaiFENesin/D-METHORPHAN HB 10 ML UNIT-DOSE CUPS PO PRN (05:39)
[2017-05-03 09:41] VITALS: BP 133/83; PULSE 85; TEMP 96.1
[2017-05-03] MEDS ORDERED: METHADONE HCL 5 MG TABLET (FOR DETOX USE ONLY) PO ONE (10:00)
[2017-05-03] MEDS: NICOTINE 14 MG/24 HOURS TOPICAL PATCH TD SCH (10:21)
[2017-05-03] MEDS: BACITRACIN 0.9 GM PACKET TP SCH (10:21)
[2017-05-03] MEDS: PRENATAL VITAMINS W/ FOLIC ACID TABLET (FP) PO SCH (10:21)
--- NOTE | 2017-05-03 13:29 | DS ---
[facility] Detox Discharge Summary Admission Date: 04/30/17 Discharge Date: 05/03/17 - History Present History: Cocaine Dependence, Opioid Dependence - Physical Exam Results Vital Signs: Vital Signs Temperature 96.1 F L 05/03/17 09:41 Pulse Rate 85 05/03/17 09:41 Respiratory Rate 18 05/03/17 09:41 Blood Pressure 133/83 05/03/17 09:41 O2 Sat by Pulse Oximetry (%) Pertinent Admission Physical Exam Findings: withdrawal sx Vital Signs Temperature 96.1 F L 05/03/17 09:41 Pulse Rate 85 05/03/17 09:41 Respiratory Rate 18 05/03/17 09:41 Blood Pressure 133/83 05/03/17 09:41 O2 Sat by Pulse Oximetry (%) Laboratory Last Values WBC 8.6 K/mm3 (4.0-10.0) 05/01/17 06:05 RBC 4.90 M/mm3 (4.00-5.60) 05/01/17 06:05 Hgb 13.7 GM/dL (11.7-16.9) 05/01/17 06:05 Hct 42.9 % (35.4-49) 05/01/17 06:05 MCV 87.6 fl (80-96) 05/01/17 06:05 MCH 28.0 pg (25.7-33.7) 05/01/17 06:05 MCHC 31.9 g/dl (32.0-35.9) L 05/01/17 06:05 RDW 14.1 % (11.9-15.9) 05/01/17 06:05 Plt Count 328 K/MM3 (134-434) 05/01/17 06:05 MPV 11.2 fl (7.5-11.1) H 05/01/17 06:05 Sodium 137 mmol/L (136-145) 05/01/17 06:05 Potassium 4.0 mmol/L (3.5-5.1) 05/01/17 06:05 Chloride 102 mmol/L (98-107) 05/01/17 06:05 Carbon Dioxide 30 mmol/L (21-32) 05/01/17 06:05 Anion Gap 5 (8-16) L 05/01/17 06:05 BUN 10 mg/dL (7-18) 05/01/17 06:05 Creatinine 0.9 mg/dL (0.7-1.3) 05/01/17 06:05 Creat Clearance w eGFR > 60 (>60) 05/01/17 06:05 Random Glucose 86 mg/dL (74-106) 05/01/17 06:05 Calcium 8.4 mg/dL (8.5-10.1) L 05/01/17 06:05 Total Bilirubin 0.4 mg/dL (0.2-1.0) 05/01/17 06:05 AST 19 U/L (15-37) D 05/01/17 06:05 ALT 31 U/L (12-78) D 05/01/17 06:05 Alkaline Phosphatase 79 U/L (45-117) 05/01/17 06:05 Total Protein 7.5 g/dl (6.4-8.2) 05/01/17 06:05 Albumin 3.4 g/dl (3.4-5.0) 05/01/17 06:05 Urine Color Yellow 04/30/17 18:30 Urine Appearance Clear 04/30/17 18:30 Urine pH 6.0 (5.0-8.0) 04/30/17 18:30 Ur Specific [place] 1.030 (1.001-1.035) 04/30/17 18:30 Urine Protein Negative (NEGATIVE) 04/30/17 18:30 Urine Glucose (UA) Negative (NEGATIVE) 04/30/17 18:30 Urine Ketones Negative (NEGATIVE) 04/30/17 18:30 Urine Blood Negative (NEGATIVE) 04/30/17 18:30 Urine Nitrite Negative (NEGATIVE) 04/30/17 18:30 Urine Bilirubin Negative (NEGATIVE) 04/30/17 18:30 Urine Urobilinogen 2.0 mg/dL (0.2-1.0) 04/30/17 18:30 Ur Leukocyte Esterase Negative (NEGATIVE) 04/30/17 18:30 RPR Titer Nonreactive (NONREACTIVE) 05/01/17 06:05 Hepatitis C Antibody 0.2 s/co ratio (0.0-0.9) 05/01/17 06:05 HIV 1&2 Antibody Screen Negative 04/30/17 09:25 HIV P24 Antigen Negative 04/30/17 09:25 labs noted - Medication Discharge Medications: Ambulatory Orders Benztropine Mesylate [Cogentin -] 2 mg PO HS #30 tablet 11/20/15 Risperidone [Risperdal] 3 mg PO HS #30 tablet 11/20/15 Quetiapine Fumarate [Seroquel -] 200 mg PO HS #30 tab 07/14/16 Trazodone HCl 50 mg PO HS #30 tablet 12/03/16 - Diagnosis (1) Opioid dependence with withdrawal Status: Acute (2) Cocaine dependence, uncomplicated Status: Chronic (3) Status post closed fracture of left femur Status: Chronic - AMA Did Patient Leave Against Medical Advice: Yes
[2017-05-04] MEDS ORDERED: METHADONE HCL 10 MG TABLET (FOR DETOX USE ONLY) PO ONE (10:00)
[2017-05-05] MEDS ORDERED: METHADONE HCL 5 MG TABLET (FOR DETOX USE ONLY) PO ONE (06:00)
== END 2017-05-03 11:20 | disposition left against medical advice (07) | DRG 770 ==
LOC: YASAS 10:37 → Y6N 14:09
PROVIDERS: ADMIT Internal Medicine; ATTEND Internal Medicine
PROC: HZ2ZZZZ Detoxification Services for Substance Abuse Treatment (ICD-10-PCS; principal; 2017-04-30)
DX: F11.23 Opioid dependence with withdrawal (principal); F14.20 Cocaine dependence, uncomplicated; F17.210 Nicotine dependence, cigarettes, uncomplicated; F31.9 Bipolar disorder, unspecified; Z98.890 Other specified postprocedural states; Z87.828 Personal history of other (healed) physical injury and trauma; Z87.81 Personal history of (healed) traumatic fracture; Z87.898 Personal history of other specified conditions; Z91.012 Allergy to eggs; Z91.011 Allergy to milk products; Z91.5 Personal history of self-harm
CPT/HCPCS: 36415; 80053; 81003; 85027; 86593; 86803; 87389; 93005; 93010

== ENCOUNTER 2017-05-26 13:04 | Inpatient (IN) | payer OTHER ==
[2017-05-26 16:03] VITALS: BMI 24.2
--- NOTE | 2017-05-26 21:26 | HP ---
COWS - Scale Resting Pulse: 0= [place] 80 or Below Sweatin= Chills/Flushing Restless Observation: 0= Sits Still Pupil Size: 1= Pupils >than Normal Bone or Joint Aches: 4=Acute Joint/Muscle Pain Runny Nose/ Eye Tearin= Runny Nose/Eyes GI Upset > 30mins: 3= Vomiting/Diarrhea (DIARRHEA X 2, VOMITING X 1) Tremor Observation: 2= Slight Tremor Visible Yawning Observation: 1= 1-2x During Session Anxiety or Irritability: 2=Irritable/Anxious Goose Flesh Skin: 3=Piloerection COWS Score: 19 Admission ROS S - HPI Chief Complaint: Withdrawal symptoms Allergies/Adverse Reactions: Allergies Allergy/AdvReac Type Severity Reaction Status Date / Time egg Allergy Hives Verified 05/26/17 17:54 No Known Drug Allergies Allergy Verified 05/26/17 17:54 lactose AdvReac Nausea Verified 05/26/17 17:54 History of Present Illness: 36 years old old male with a 3 years history of heroin dependence is admitted to detox. Patient has been in previous detox and reports 8 years of sobriety. He has medical history of gonorrhea, depression and anxiety. Patent has a history of suicide attempt but he denies suicidal ideation at this time. Exam Limitations: No Limitations - Ebola screening Have you traveled outside of the country in the last 21 days: No Have you had contact with anyone from an Ebola affected area: No Have you been sick,other than usual withdrawal symptoms: No Do you have a fever: No - Review of Systems Constitutional: Chills, Loss of Appetite, Malaise, Night Sweats, Changes in sleep, Weakness EENT: reports: No Symptoms Reported Respiratory: reports: No Symptoms reported Cardiac: reports: No Symptoms Reported GI: reports: Diarrhea (x 2), Nausea, Poor Appetite, Poor Fluid Intake, Vomiting , Abdominal cramping : reports: No Symptoms Reported Musculoskeletal: reports: Back Pain, Muscle Pain, Muscle Weakness Integumentary: reports: Flushing Neuro: reports: Headache, Tingling, Tremors Endocrine: reports: No Symptoms Reported Hematology: reports: No Symptoms Reported Psychiatric: reports: Orientated x3, Anxious, Depressed Other Systems: Reviewed and Negative Patient History - Patient Medical History Hx Anemia: No Hx Asthma: No Hx Chronic Obstructive Pulmonary Disease (COPD): No Hx Cancer: No Hx Cardiac Disorders: No Hx Congestive Heart Failure: No Hx Hypertension: No Hx Hypercholesterolemia: No Hx Pacemaker: No HX Cerebrovascular Accident: No Hx Seizures: No Hx Dementia: No Hx Diabetes: No Hx Gastrointestinal Disorders: No Hx Liver Disease: No Hx Genitourinary Disorders: No Hx Sexually Transmitted Disorders: Yes (gonorrhea in 2016; Treated.) Hx Renal Disease (ESRD): No Hx Thyroid Disease: No Hx Human Immunodeficiency Virus (HIV): No (last 08/18 negative) Hx Hepatitis C: No Hx Depression: Yes (Meds. in past; None currently.) Hx Suicide Attempt: Yes (pill overdose in 2014; PATIENT DENIES CURRENT SI / HI.) Hx Bipolar Disorder: Yes (Stopped meds. > 1 year ago b/c of side effects.) Hx Schizophrenia: No - Patient Surgical History Past Surgical History: Yes Hx Neurologic Surgery: No Hx Cataract Extraction: No Hx Cardiac Surgery: No Hx Lung Surgery: No Hx Breast Surgery: No Hx Breast Biopsy: No Hx Abdominal Surgery: Yes ([facility]-1999 IN [facility]) Hx Appendectomy: No Hx Cholecystectomy: No Hx Genitourinary Surgery: No Hx Section: No Hx Orthopedic Surgery: Yes (left femur: w in 1999 - [facility]) Other Surgical History: left leg maki in femur Anesthesia Reaction: No - PPD History Previous Implant?: Yes Documented Results: Negative w/proof Implanted On Prior [facility] Admission?: Yes Date: 10/25/16 Results: 0 mm PPD to be Administered?: No - Reproductive History Patient is a Female of Child Bearing Age (11 -55 yrs old): No (MALE) - Smoking Cessation Smoking history: Current every day smoker Have you smoked in the past 12 months: Yes Aproximately how many cigarettes per day: 10 Cigars Per Day: 0 Hx Chewing Tobacco Use: No Initiated information on smoking cessation: Yes 'Breaking Loose' booklet given: 05/26/17 - Substance & Tx. History Hx Alcohol Use: No Hx Substance Use: Yes Substance Use Type: Cocaine, Heroin Hx Substance Use Treatment: Yes ([facility] ) - Substances Abused Heroin Route: Injection Frequency: Daily Amount used: 6 BAGS Age of first use: 33 Date of Last Use: 05/26/17 Cocaine Route: Smoking Frequency: Daily Amount used: $20 Age of first use: 17 Date of Last Use: 05/25/17 Family Disease History - Family Disease History Family Disease History: Other: Father (living, ALCOHOL), Mother (living, ALCOHOL ), Sister (living, etoh) Admission Physical Exam [facility] - Vital Signs Vital Signs: Vital Signs - 24 hr 05/26/17 15:58 Temperature 97.2 F L Pulse Rate 66 Respiratory 20 Rate Blood Pressure 141/75 - Physical General Appearance: Yes: Moderate Distress HEENTM: Yes: EOMI, Normal Voice, JAVED Respiratory: Yes: Lungs Clear, Normal Breath Sounds, No Respiratory Distress Neck: Yes: Supple Breast: Yes: Breast Exam Deferred Cardiology: Yes: Regular Rhythm, Regular Rate, S1, S2 Abdominal: Yes: Within Normal Limits Genitourinary: Yes: Within Normal Limits Back: Yes: Normal Inspection Musculoskeletal: Yes: Back pain, Muscle Pain, Muscle weakness Extremities: Yes: Tremors Neurological: Yes: Alert, Normal Mood/Affect, Normal Response Integumentary: Yes: Dry, Track [place] (right hand) Lymphatic: Yes: Within Normal Limits - Diagnostic (1) Cocaine dependence, uncomplicated Current Visit: Yes Status: Chronic (2) Depression Current Visit: Yes Status: Chronic (3) Opioid dependence with withdrawal Current Visit: Yes Status: Chronic (4) Nicotine dependence Current Visit: Yes Status: Chronic Qualifiers: Nicotine product type: cigarettes Substance use status: uncomplicated Qualified Code(s): F17.210 - Nicotine dependence, cigarettes, uncomplicated Cleared for Admission [facility] - Detox or Rehab [facility] Level of Care: Medically Managed Detox Regimen/Protocol: Methadone/Librium [facility] Breath Alcohol Content Breath Alcohol Content: 0 Urine Drug Screen - Results Drug Screen Negative: No Urine Drug Screen Results: [place]-Cocaine, OPI-Opiates, OXY-Oxycodone
[2017-05-26] MEDS ORDERED: MENTHOL/PHENOL 1 EACH UD MM PRN (21:36)
[2017-05-26] MEDS ORDERED: NICOTINE POLACRILEX 2 MG GUM BUC PRN (21:36)
[2017-05-26] MEDS ORDERED: METHADONE HCL 10 MG TABLET (FOR DETOX USE ONLY) PO ONE ×2 (21:36→23:00)
[2017-05-26] MEDS ORDERED: guaiFENesin/D-METHORPHAN HB 10 ML UNIT-DOSE CUPS PO PRN (21:36)
[2017-05-26] MEDS ORDERED: P-EPHED 60MG/TRIPROLIDI 2.5MG TABLET PO PRN (21:36)
[2017-05-26] MEDS ORDERED: LOPERAMIDE HCL 2 MG CAPSULE PO PRN (21:36)
[2017-05-26] MEDS ORDERED: chlordiazePOXIDE HCL 25 MG CAPSULE PO PRN (21:36)
[2017-05-26] MEDS ORDERED: MAG HYDROX/AL HYDROX/SIMETH 30 ML UNIT-DOSE CUP PO PRN (21:36)
[2017-05-26] MEDS ORDERED: MAGNESIUM CITRATE 300 ML BOTTLE PO PRN (21:36)
[2017-05-26] MEDS ORDERED: MAGNESIUM HYDROX 2400MG/30ML ORAL SUSPENSION 30 ML CUP PO PRN (21:36)
[2017-05-26] MEDS: chlordiazePOXIDE HCL 25 MG CAPSULE PO SCH (23:01)
[2017-05-26] MEDS: THIAMINE HCL 100 MG TABLET (FP) PO SCH (23:04)
[2017-05-27] MEDS: chlordiazePOXIDE HCL 25 MG CAPSULE PO SCH ×2 (05:27→10:02)
[2017-05-27] MEDS ORDERED: METHADONE HCL 10 MG TABLET (FOR DETOX USE ONLY) PO SCH (10:00)
[2017-05-27] MEDS: PRENATAL VITAMINS W/ FOLIC ACID TABLET (FP) PO SCH (10:02)
[2017-05-27] MEDS: NICOTINE 14 MG/24 HOURS TOPICAL PATCH TD SCH (10:03)
--- NOTE | 2017-05-27 10:07 | EKG ---
Test Reason : Blood Pressure : / mmHG Vent. Rate : 069 BPM Atrial Rate : 069 BPM P-R Int : 170 ms QRS Dur : 090 ms QT Int : 386 ms P-R-T Axes : 056 062 053 degrees QTc Int : 413 ms NORMAL SINUS RHYTHM NORMAL ECG WHEN COMPARED WITH ECG OF 01-MAY-2017 09:10, NO SIGNIFICANT CHANGE WAS FOUND Confirmed by FLO ZACARIAS MD ([id number]) on 05/27/2017 10:06:40 AM Referred By: Confirmed By:FLO ZACARIAS MD
[2017-05-27 10:25] LABS: ANION GAP 7 (8-16); BILIRUBIN,TOTAL 0.2 mg/dL (0.2-1.0); BLOOD UREA NITROGEN 13 mg/dL (7-18); CALCIUM 8.5 mg/dL (8.5-10.1); CHLORIDE 105 mmol/L (98-107); CO2 29 mmol/L (21-32); CREATININE 0.9 mg/dL (0.7-1.3); GLUCOSE,RANDOM 80 mg/dL (74-106); POTASSIUM 4.3 mmol/L (3.5-5.1); SGOT/AST 15 U/L (15-37); SGPT/ALT 25 U/L (12-78); SODIUM 141 mmol/L (136-145); TOT PROT 6.6 g/dl (6.4-8.2)
[2017-05-27 10:26] LABS: ALK PHOS 78 U/L (45-117)
--- NOTE | 2017-05-27 10:26 | PN ---
BHS COWS - Scale Resting Pulse: 0= [place] 80 or Below Sweatin= Chills/Flushing Restless Observation: 3= Extraneous Movement Pupil Size: 2= Moderately Dilated Bone or Joint Aches: 4=Acute Joint/Muscle Pain Runny Nose/ Eye Tearin= Nasal Congestion GI Upset > 30mins: 1= Stomach Cramp Tremor Observation of Outstretched Hands: 1= Tremor [place], Not Seen Yawning Observation: 1= 1-2x During Session Anxiety or Irritability: 1=Feels Anxious/Irritable Goose Flesh Skin: 0=Smooth Skin COWS Score: 15 BHS Progress Note (SOAP) Subjective: ANXIETY,SWEATS,FATIGUE, INTERMITTENT SLEEP. HX OPIOD DEPENDENCE. DENIES HX OF ALCOHOL PROBLEM. Objective: 05/27/17 06:11 Temperature 97.1 F L Pulse Rate 62 Respiratory 16 Rate Blood Pressure 118/62 05/27/17 09:46 Temperature 97.7 F Pulse Rate 76 Respiratory 18 Rate Blood Pressure 122/76 Laboratory Last Values WBC 6.3 K/mm3 (4.0-10.0) 05/27/17 07:00 RBC 4.77 M/mm3 (4.00-5.60) 05/27/17 07:00 Hgb 13.3 GM/dL (11.7-16.9) 05/27/17 07:00 Hct 41.6 % (35.4-49) 05/27/17 07:00 MCV 87.2 fl (80-96) 05/27/17 07:00 MCH 28.0 pg (25.7-33.7) 05/27/17 07:00 MCHC 32.1 g/dl (32.0-35.9) 05/27/17 07:00 RDW 14.9 % (11.9-15.9) 05/27/17 07:00 Plt Count 309 K/MM3 (134-434) 05/27/17 07:00 MPV 10.5 fl (7.5-11.1) 05/27/17 07:00 Sodium 141 mmol/L (136-145) 05/27/17 07:00 Potassium 4.3 mmol/L (3.5-5.1) 05/27/17 07:00 Chloride 105 mmol/L (98-107) 01/24/18 07:00 Carbon Dioxide 29 mmol/L (21-32) 05/27/17 07:00 Anion Gap 7 (8-16) L 05/27/17 07:00 BUN 13 mg/dL (7-18) D 05/27/17 07:00 Creatinine 0.9 mg/dL (0.7-1.3) 05/27/17 07:00 Creat Clearance w eGFR > 60 (>60) 05/27/17 07:00 Random Glucose 80 mg/dL (74-106) 05/27/17 07:00 Calcium 8.5 mg/dL (8.5-10.1) 05/27/17 07:00 Total Bilirubin 0.2 mg/dL (0.2-1.0) D 05/27/17 07:00 AST 15 U/L (15-37) D 05/27/17 07:00 ALT 25 U/L (12-78) 05/27/17 07:00 Alkaline Phosphatase 78 U/L (45-117) 05/27/17 07:00 Total Protein 6.6 g/dl (6.4-8.2) 05/27/17 07:00 Albumin 3.0 g/dl (3.4-5.0) L 05/27/17 07:00 Urine Color Yellow 05/27/17 14:40 Urine Appearance Turbid 05/27/17 14:40 Urine pH 5.0 (5.0-8.0) 05/27/17 14:40 Ur Specific [place] 1.027 (1.001-1.035) 05/27/17 14:40 Urine Protein Negative (NEGATIVE) 05/27/17 14:40 Urine Glucose (UA) Negative (NEGATIVE) 05/27/17 14:40 Urine Ketones Negative (NEGATIVE) 05/27/17 14:40 Urine Blood Negative (NEGATIVE) 05/27/17 14:40 Urine Nitrite Negative (NEGATIVE) 05/27/17 14:40 Urine Bilirubin Negative (NEGATIVE) 05/27/17 14:40 Urine Urobilinogen 4.0 e.u/dl mg/dL (0.2-1.0) 05/27/17 14:40 Ur Leukocyte Esterase Negative (NEGATIVE) 05/27/17 14:40 RPR Titer Nonreactive (NONREACTIVE) 05/27/17 07:00 Assessment: WITHDRAWAL SX Plan: CONTINUE DETOX START ON 7 DAYS METHADONE ONLY REGIMEN.
[2017-05-27 10:31] LABS: HEMATOCRIT 41.6 % (35.4-49); HEMOGLOBIN 13.3 GM/dL (11.7-16.9); MCHC 32.1 g/dl (32.0-35.9); MEAN CELL VOLUME 87.2 fl (80-96); MEAN PLT VOLUME 10.5 fl (7.5-11.1); PLATELET COUNT 309 K/MM3 (134-434); RBC 4.77 M/mm3 (4.00-5.60); RDW 14.9 % (11.9-15.9); WHITE BLOOD COUNT 6.3 K/mm3 (4.0-10.0)
[2017-05-27] MEDS: diazePAM 5 MG TABLET PO PRN ×3 (14:09→22:19)
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
[2017-05-27 17:19] LABS: URINE APPEARANCE TURBID; URINE BILIRUBIN NEGATIVE (NEGATIVE); URINE BLOOD NEGATIVE (NEGATIVE); URINE COLOR YELLOW; URINE GLUCOSE (UA) NEGATIVE (NEGATIVE); URINE KETONE NEGATIVE (NEGATIVE); URINE LEUK ESTERASE NEGATIVE (NEGATIVE); URINE NITRITE NEGATIVE (NEGATIVE); URINE PROTEIN NEGATIVE (NEGATIVE); URINE UROBILINOGEN 4.0 E.U/dl mg/dL (0.2-1.0)
[2017-05-27] MEDS: THIAMINE HCL 100 MG TABLET (FP) PO SCH (22:18)
[2017-05-27] MEDS: ZOLPIDEM TARTRATE 10 MG TABLET (PARK CARE ONLY) PO PRN (22:19)
[2017-05-27] MEDS ORDERED: chlordiazePOXIDE HCL 25 MG CAPSULE PO SCH (23:00)
[2017-05-28] MEDS: diazePAM 5 MG TABLET PO PRN ×4 (02:45→18:41)
[2017-05-28] MEDS: ACETAMINOPHEN 325 MG TABLET (FP) PO PRN (02:46)
--- NOTE | 2017-05-28 09:57 | PN ---
BHS COWS - Scale Resting Pulse: 0= [place] 80 or Below Sweatin= Chills/Flushing Restless Observation: 3= Extraneous Movement Pupil Size: 2= Moderately Dilated Bone or Joint Aches: 4=Acute Joint/Muscle Pain Runny Nose/ Eye Tearin= Nasal Congestion GI Upset > 30mins: 0= None Tremor Observation of Outstretched Hands: 1= Tremor [place], Not Seen Yawning Observation: 1= 1-2x During Session Anxiety or Irritability: 2=Irritable/Anxious Goose Flesh Skin: 0=Smooth Skin COWS Score: 15 BHS Progress Note (SOAP) Subjective: ANXIETY,SWEAT,HOT/COLD SWEATS,INTERMITTENT SLEEP. Objective: 05/28/17 09:56 Vital Signs Temperature 96.1 F L 05/28/17 09:52 Pulse Rate 74 05/28/17 09:52 Respiratory Rate 19 05/28/17 09:52 Blood Pressure 113/87 05/28/17 09:52 O2 Sat by Pulse Oximetry (%) Laboratory Last Values WBC 6.3 K/mm3 (4.0-10.0) 05/27/17 07:00 RBC 4.77 M/mm3 (4.00-5.60) 05/27/17 07:00 Hgb 13.3 GM/dL (11.7-16.9) 05/27/17 07:00 Hct 41.6 % (35.4-49) 05/27/17 07:00 MCV 87.2 fl (80-96) 05/27/17 07:00 MCH 28.0 pg (25.7-33.7) 05/27/17 07:00 MCHC 32.1 g/dl (32.0-35.9) 05/27/17 07:00 RDW 14.9 % (11.9-15.9) 05/27/17 07:00 Plt Count 309 K/MM3 (134-434) 05/27/17 07:00 MPV 10.5 fl (7.5-11.1) 05/27/17 07:00 Sodium 141 mmol/L (136-145) 05/27/17 07:00 Potassium 4.3 mmol/L (3.5-5.1) 05/27/17 07:00 Chloride 105 mmol/L (98-107) 05/27/17 07:00 Carbon Dioxide 29 mmol/L (21-32) 05/27/17 07:00 Anion Gap 7 (8-16) L 05/27/17 07:00 BUN 13 mg/dL (7-18) D 05/27/17 07:00 Creatinine 0.9 mg/dL (0.7-1.3) 05/27/17 07:00 Creat Clearance w eGFR > 60 (>60) 05/27/17 07:00 Random Glucose 80 mg/dL (74-106) 05/27/17 07:00 Calcium 8.5 mg/dL (8.5-10.1) 05/27/17 07:00 Total Bilirubin 0.2 mg/dL (0.2-1.0) D 05/27/17 07:00 AST 15 U/L (15-37) D 05/27/17 07:00 ALT 25 U/L (12-78) 05/27/17 07:00 Alkaline Phosphatase 78 U/L (45-117) 05/27/17 07:00 Total Protein 6.6 g/dl (6.4-8.2) 05/27/17 07:00 Albumin 3.0 g/dl (3.4-5.0) L 05/27/17 07:00 Urine Color Yellow 05/27/17 14:40 Urine Appearance Turbid 05/27/17 14:40 Urine pH 5.0 (5.0-8.0) 05/27/17 14:40 Ur Specific [place] 1.027 (1.001-1.035) 05/27/17 14:40 Urine Protein Negative (NEGATIVE) 05/27/17 14:40 Urine Glucose (UA) Negative (NEGATIVE) 05/27/17 14:40 Urine Ketones Negative (NEGATIVE) 05/27/17 14:40 Urine Blood Negative (NEGATIVE) 05/27/17 14:40 Urine Nitrite Negative (NEGATIVE) 05/27/17 14:40 Urine Bilirubin Negative (NEGATIVE) 05/27/17 14:40 Urine Urobilinogen 4.0 e.u/dl mg/dL (0.2-1.0) 05/27/17 14:40 Ur Leukocyte Esterase Negative (NEGATIVE) 05/27/17 14:40 RPR Titer Nonreactive (NONREACTIVE) 05/27/17 07:00 Assessment: 05/28/17 09:57 WITHDRAWAL SX Plan: CONTINUE DETOX
[2017-05-28] MEDS: NICOTINE 14 MG/24 HOURS TOPICAL PATCH TD SCH (10:03)
[2017-05-28] MEDS: METHADONE HCL 5 MG TABLET (FOR DETOX USE ONLY) PO SCH (10:03)
[2017-05-28] MEDS: PRENATAL VITAMINS W/ FOLIC ACID TABLET (FP) PO SCH (10:03)
[2017-05-28] MEDS: THIAMINE HCL 100 MG TABLET (FP) PO SCH (22:15)
[2017-05-28] MEDS: ZOLPIDEM TARTRATE 10 MG TABLET (PARK CARE ONLY) PO PRN (22:15)
[2017-05-28] MEDS ORDERED: chlordiazePOXIDE 5 MG CAPSULE PO SCH (23:00)
[2017-05-29] MEDS: diazePAM 5 MG TABLET PO PRN ×4 (01:38→22:28)
[2017-05-29] MEDS: ACETAMINOPHEN 325 MG TABLET (FP) PO PRN (01:58)
[2017-05-29] MEDS: IBUPROFEN 400 MG TABLET (FP) PO PRN ×3 (02:11→21:03)
[2017-05-29] MEDS: METHADONE HCL 5 MG TABLET (FOR DETOX USE ONLY) PO SCH (10:05)
[2017-05-29] MEDS: PRENATAL VITAMINS W/ FOLIC ACID TABLET (FP) PO SCH (10:05)
[2017-05-29] MEDS: NICOTINE 14 MG/24 HOURS TOPICAL PATCH TD SCH (10:06)
--- NOTE | 2017-05-29 10:26 | PN ---
BHS Progress Note (SOAP) Subjective: ANXIETY,SWEATS,INTERMITTENT SLEEP. Objective: 05/29/17 10:25 Vital Signs Temperature 96.3 F L 05/29/17 09:45 Pulse Rate 68 05/29/17 09:45 Respiratory Rate 18 05/29/17 09:45 Blood Pressure 133/85 05/29/17 09:45 O2 Sat by Pulse Oximetry (%) Laboratory Last Values WBC 6.3 K/mm3 (4.0-10.0) 05/27/17 07:00 RBC 4.77 M/mm3 (4.00-5.60) 05/27/17 07:00 Hgb 13.3 GM/dL (11.7-16.9) 05/27/17 07:00 Hct 41.6 % (35.4-49) 05/27/17 07:00 MCV 87.2 fl (80-96) 05/27/17 07:00 MCH 28.0 pg (25.7-33.7) 05/27/17 07:00 MCHC 32.1 g/dl (32.0-35.9) 05/27/17 07:00 RDW 14.9 % (11.9-15.9) 05/27/17 07:00 Plt Count 309 K/MM3 (134-434) 05/27/17 07:00 MPV 10.5 fl (7.5-11.1) 05/27/17 07:00 Sodium 141 mmol/L (136-145) 05/27/17 07:00 Potassium 4.3 mmol/L (3.5-5.1) 05/27/17 07:00 Chloride 105 mmol/L (98-107) 05/27/17 07:00 Carbon Dioxide 29 mmol/L (21-32) 05/27/17 07:00 Anion Gap 7 (8-16) L 05/27/17 07:00 BUN 13 mg/dL (7-18) D 05/27/17 07:00 Creatinine 0.9 mg/dL (0.7-1.3) 05/27/17 07:00 Creat Clearance w eGFR > 60 (>60) 05/27/17 07:00 Random Glucose 80 mg/dL (74-106) 05/27/17 07:00 Calcium 8.5 mg/dL (8.5-10.1) 05/27/17 07:00 Total Bilirubin 0.2 mg/dL (0.2-1.0) D 05/27/17 07:00 AST 15 U/L (15-37) D 05/27/17 07:00 ALT 25 U/L (12-78) 05/27/17 07:00 Alkaline Phosphatase 78 U/L (45-117) 05/27/17 07:00 Total Protein 6.6 g/dl (6.4-8.2) 05/27/17 07:00 Albumin 3.0 g/dl (3.4-5.0) L 05/27/17 07:00 Urine Color Yellow 05/27/17 14:40 Urine Appearance Turbid 05/27/17 14:40 Urine pH 5.0 (5.0-8.0) 05/27/17 14:40 Ur Specific [place] 1.027 (1.001-1.035) 05/27/17 14:40 Urine Protein Negative (NEGATIVE) 05/27/17 14:40 Urine Glucose (UA) Negative (NEGATIVE) 05/27/17 14:40 Urine Ketones Negative (NEGATIVE) 05/27/17 14:40 Urine Blood Negative (NEGATIVE) 05/27/17 14:40 Urine Nitrite Negative (NEGATIVE) 05/27/17 14:40 Urine Bilirubin Negative (NEGATIVE) 05/27/17 14:40 Urine Urobilinogen 4.0 e.u/dl mg/dL (0.2-1.0) 05/27/17 14:40 Ur Leukocyte Esterase Negative (NEGATIVE) 05/27/17 14:40 RPR Titer Nonreactive (NONREACTIVE) 05/27/17 07:00 Assessment: 05/29/17 10:26 WITHDRAWAL SX Plan: CONTINUE DETOX
[2017-05-29] MEDS: THIAMINE HCL 100 MG TABLET (FP) PO SCH (22:28)
[2017-05-29] MEDS: ZOLPIDEM TARTRATE 10 MG TABLET (PARK CARE ONLY) PO PRN (22:28)
[2017-05-29] MEDS ORDERED: chlordiazePOXIDE HCL 10 MG CAPSULE PO SCH (23:00)
[2017-05-30] MEDS ORDERED: diphenhydrAMINE HCL 25 MG CAPSULE (FP) PO ONE ×2 (01:08→21:42)
[2017-05-30] MEDS: diphenhydrAMINE HCL 50 MG CAPSULE PO PRN ×2 (01:11→22:08)
[2017-05-30] MEDS: diazePAM 5 MG TABLET PO PRN ×3 (02:44→11:08)
[2017-05-30] MEDS: IBUPROFEN 400 MG TABLET (FP) PO PRN (03:26)
[2017-05-30] MEDS ORDERED: METHADONE HCL 10 MG TABLET (FOR DETOX USE ONLY) PO SCH (10:00)
[2017-05-30] MEDS: NICOTINE 14 MG/24 HOURS TOPICAL PATCH TD SCH (10:17)
[2017-05-30] MEDS: PRENATAL VITAMINS W/ FOLIC ACID TABLET (FP) PO SCH (10:17)
[2017-05-30] MEDS ORDERED: IBUPROFEN 400 MG TABLET (FP) PO PRN (11:08)
[2017-05-30] MEDS: LIDOCAINE VISCOUS 2% ORAL/TOP 20 ML UNIT-DOSE CUP MM PRN ×2 (14:04→19:26)
[2017-05-30] MEDS: IBUPROFEN 600 MG TABLET (FP) PO PRN ×2 (14:14→19:19)
--- NOTE | 2017-05-30 16:04 | PN ---
BHS Progress Note (SOAP) Subjective: Anxious, Tremors, Sweating, Body Aches. Objective: PT. A & O X 3, OBSERVED AMBULATING ON UNIT. NO ACUTE DISTRESS. 05/30/17 16:03 Vital Signs Temperature 97 F L 05/30/17 13:20 Pulse Rate 86 05/30/17 13:20 Respiratory Rate 18 05/30/17 13:20 Blood Pressure 130/78 05/30/17 13:20 O2 Sat by Pulse Oximetry (%) Laboratory Tests 05/27/17 05/27/17 05/27/17 07:00 07:00 07:00 WBC 6.3 RBC 4.77 Hgb 13.3 Hct 41.6 MCV 87.2 MCH 28.0 MCHC 32.1 RDW 14.9 Plt Count 309 MPV 10.5 Sodium 141 Potassium 4.3 Chloride 105 Carbon Dioxide 29 Anion Gap 7 L BUN 13 D Creatinine 0.9 Creat Clearance w eGFR > 60 Random Glucose 80 Calcium 8.5 Total Bilirubin 0.2 D AST 15 D ALT 25 Alkaline Phosphatase 78 Total Protein 6.6 Albumin 3.0 L Urine Color Urine Appearance Urine pH Ur Specific [place] Urine Protein Urine Glucose (UA) Urine Ketones Urine Blood Urine Nitrite Urine Bilirubin Urine Urobilinogen Ur Leukocyte Esterase RPR Titer Nonreactive 05/27/17 14:40 WBC RBC Hgb Hct MCV MCH MCHC RDW Plt Count MPV Sodium Potassium Chloride Carbon Dioxide Anion Gap BUN Creatinine Creat Clearance w eGFR Random Glucose Calcium Total Bilirubin AST ALT Alkaline Phosphatase Total Protein Albumin Urine Color Yellow Urine Appearance Turbid Urine pH 5.0 Ur Specific [place] 1.027 Urine Protein Negative Urine Glucose (UA) Negative Urine Ketones Negative Urine Blood Negative Urine Nitrite Negative Urine Bilirubin Negative Urine Urobilinogen 4.0 e.u/dl Ur Leukocyte Esterase Negative RPR Titer LABS NOTED. Assessment: 05/30/17 16:03 WITHDRAWAL SYMPTOMS. Plan: CONTINUE DETOX.
[2017-05-30] MEDS: hydrOXYzine PAMOATE 50 MG CAPSULE (FP) PO PRN (19:32)
[2017-05-30] MEDS: ACETAMINOPHEN 325 MG TABLET (FP) PO PRN (20:01)
[2017-05-30] MEDS: ZOLPIDEM TARTRATE 10 MG TABLET (PARK CARE ONLY) PO PRN (21:55)
[2017-05-30] MEDS: THIAMINE HCL 100 MG TABLET (FP) PO SCH (22:06)
[2017-05-31] MEDS: ACETAMINOPHEN 325 MG TABLET (FP) PO PRN ×2 (00:30→05:33)
[2017-05-31] MEDS: diphenhydrAMINE HCL 50 MG CAPSULE PO PRN (00:54)
[2017-05-31] MEDS: IBUPROFEN 600 MG TABLET (FP) PO PRN (00:54)
[2017-05-31] MEDS: LIDOCAINE VISCOUS 2% ORAL/TOP 20 ML UNIT-DOSE CUP MM PRN (01:44)
[2017-05-31] MEDS ORDERED: ACETAMINOPHEN 325 MG TABLET (FP) PO ONE (01:51)
[2017-05-31] MEDS: hydrOXYzine PAMOATE 50 MG CAPSULE (FP) PO PRN (02:49)
[2017-05-31] MEDS ORDERED: METHADONE HCL 5 MG TABLET (FOR DETOX USE ONLY) PO SCH (06:00)
[2017-05-31 06:27] VITALS: BP 130/80; PULSE 80; TEMP 97.7
--- NOTE | 2017-05-31 16:49 | DS ---
[facility] Detox Discharge Summary Admission Date: 05/26/17 Discharge Date: 05/31/17 - History Present History: Cocaine Dependence, Opioid Dependence Pertinent Past History: Denies - Physical Exam Results Vital Signs: Vital Signs Temperature 97.7 F 05/31/17 06:26 Pulse Rate 80 05/31/17 06:26 Respiratory Rate 18 05/31/17 06:26 Blood Pressure 130/80 05/31/17 06:26 O2 Sat by Pulse Oximetry (%) Pertinent Admission Physical Exam Findings: Withdrawal symptoms Laboratory Tests 05/27/17 05/27/17 05/27/17 07:00 07:00 07:00 WBC 6.3 RBC 4.77 Hgb 13.3 Hct 41.6 MCV 87.2 MCH 28.0 MCHC 32.1 RDW 14.9 Plt Count 309 MPV 10.5 Sodium 141 Potassium 4.3 Chloride 105 Carbon Dioxide 29 Anion Gap 7 L BUN 13 D Creatinine 0.9 Creat Clearance w eGFR > 60 Random Glucose 80 Calcium 8.5 Total Bilirubin 0.2 D AST 15 D ALT 25 Alkaline Phosphatase 78 Total Protein 6.6 Albumin 3.0 L Urine Color Urine Appearance Urine pH Ur Specific [place] Urine Protein Urine Glucose (UA) Urine Ketones Urine Blood Urine Nitrite Urine Bilirubin Urine Urobilinogen Ur Leukocyte Esterase RPR Titer Nonreactive 05/27/17 14:40 WBC RBC Hgb Hct MCV MCH MCHC RDW Plt Count MPV Sodium Potassium Chloride Carbon Dioxide Anion Gap BUN Creatinine Creat Clearance w eGFR Random Glucose Calcium Total Bilirubin AST ALT Alkaline Phosphatase Total Protein Albumin Urine Color Yellow Urine Appearance Turbid Urine pH 5.0 Ur Specific [place] 1.027 Urine Protein Negative Urine Glucose (UA) Negative Urine Ketones Negative Urine Blood Negative Urine Nitrite Negative Urine Bilirubin Negative Urine Urobilinogen 4.0 e.u/dl Ur Leukocyte Esterase Negative RPR Titer Labs noted - Treatment Hospital Course: Detox Protocol Followed, Detoxed Safely, Responded well, Discharged Condition Good - Medication Discharge Medications: Ambulatory Orders NK [No Known Home Medication] 05/26/17 - Diagnosis (1) Cocaine dependence, uncomplicated Status: Chronic (2) Nicotine dependence Status: Chronic Qualifiers: Nicotine product type: cigarettes Substance use status: in withdrawal Qualified Code(s): F17.213 - Nicotine dependence, cigarettes, with withdrawal (3) Opioid dependence with withdrawal Status: Acute (4) Depression Status: Chronic Qualifiers: Depression Type: unspecified Qualified Code(s): F32.9 - Major depressive disorder, single episode, unspecified - AMA Did Patient Leave Against Medical Advice: No (F/U with PCP within 1-2 weeks)
== END 2017-05-31 09:03 | disposition home or self-care (01) | DRG 773 ==
LOC: YASAS 13:04 → Y3N 18:20
PROVIDERS: ADMIT Internal Medicine; ATTEND Internal Medicine
PROC: HZ2ZZZZ Detoxification Services for Substance Abuse Treatment (ICD-10-PCS; principal; 2017-05-26)
DX: F11.23 Opioid dependence with withdrawal (principal); F14.20 Cocaine dependence, uncomplicated; F17.213 Nicotine dependence, cigarettes, with withdrawal; F32.9 Major depressive disorder, single episode, unspecified; F25.9 Schizoaffective disorder, unspecified; G47.00 Insomnia, unspecified; Z91.012 Allergy to eggs; Z91.011 Allergy to milk products; Z87.438 Personal history of other diseases of male genital organs; Z91.5 Personal history of self-harm
CPT/HCPCS: 36415; 80053; 81003; 85027; 86593; 93005; 93010

== ENCOUNTER 2017-07-03 12:32 | Inpatient (IN) | payer OTHER ==
[2017-07-03 14:21] VITALS: BMI 23.6
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
[2017-07-03] MEDS ORDERED: P-EPHED 60MG/TRIPROLIDI 2.5MG TABLET PO PRN (15:55)
[2017-07-03] MEDS ORDERED: MAG HYDROX/AL HYDROX/SIMETH 30 ML UNIT-DOSE CUP PO PRN (15:55)
[2017-07-03] MEDS ORDERED: guaiFENesin/D-METHORPHAN HB 10 ML UNIT-DOSE CUPS PO PRN (15:55)
[2017-07-03] MEDS ORDERED: ACETAMINOPHEN 325 MG TABLET (FP) PO PRN (15:55)
[2017-07-03] MEDS ORDERED: NICOTINE POLACRILEX 2 MG GUM BC PRN (15:55)
[2017-07-03] MEDS ORDERED: LOPERAMIDE HCL 2 MG CAPSULE PO PRN (15:55)
[2017-07-03] MEDS ORDERED: MAGNESIUM HYDROX 2400MG/30ML ORAL SUSPENSION 30 ML CUP PO PRN (15:55)
[2017-07-03] MEDS ORDERED: MAGNESIUM CITRATE 300 ML BOTTLE PO PRN (15:55)
[2017-07-03] MEDS ORDERED: MENTHOL/PHENOL 1 EACH UD MM PRN (15:55)
[2017-07-03] MEDS: NICOTINE 21 MG/24 HOURS TOPICAL PATCH TD SCH (17:41)
[2017-07-03] MEDS: IBUPROFEN 400 MG TABLET (FP) PO PRN (18:43)
[2017-07-03] MEDS: cloNIDine HCL 0.1 MG TABLET PO SCH (21:15)
[2017-07-03] MEDS: THIAMINE HCL 100 MG TABLET (FP) PO SCH (21:15)
[2017-07-03] MEDS: hydrOXYzine PAMOATE 50 MG CAPSULE (FP) PO PRN (21:17)
[2017-07-03 22:34] LABS: URINE APPEARANCE CLEAR; URINE BILIRUBIN NEGATIVE (NEGATIVE); URINE BLOOD NEGATIVE (NEGATIVE); URINE COLOR YELLOW; URINE GLUCOSE (UA) NEGATIVE (NEGATIVE); URINE KETONE NEGATIVE (NEGATIVE); URINE LEUK ESTERASE NEGATIVE (NEGATIVE); URINE NITRITE NEGATIVE (NEGATIVE); URINE PROTEIN NEGATIVE (NEGATIVE); URINE UROBILINOGEN NEGATIVE mg/dL (0.2-1.0)
[2017-07-04] MEDS: IBUPROFEN 400 MG TABLET (FP) PO PRN (09:51)
[2017-07-04] MEDS: cloNIDine HCL 0.1 MG TABLET PO SCH ×2 (09:52→21:10)
[2017-07-04] MEDS: hydrOXYzine PAMOATE 50 MG CAPSULE (FP) PO PRN ×2 (09:52→21:11)
[2017-07-04] MEDS: BUPRENORPHINE/NALOXONE 2 MG/0.5 MG FILM PACKET SL SCH (09:52)
[2017-07-04] MEDS: PRENATAL VITAMINS W/ FOLIC ACID TABLET (FP) PO SCH (09:53)
[2017-07-04] MEDS: NICOTINE 21 MG/24 HOURS TOPICAL PATCH TD SCH (09:53)
[2017-07-04 11:01] LABS: HEMATOCRIT 42.7 % (35.4-49); HEMOGLOBIN 14.1 GM/dL (11.7-16.9); MEAN PLT VOLUME 10.5 fl (7.5-11.1); PLATELET COUNT 272 K/MM3 (134-434); RBC 4.85 M/mm3 (4.00-5.60); RDW 15.4 % (11.9-15.9); WHITE BLOOD COUNT 4.3 K/mm3 (4.0-10.0)
[2017-07-04 11:18] LABS: CHLORIDE 102 mmol/L (98-107); POTASSIUM 4.4 mmol/L (3.5-5.1); SODIUM 140 mmol/L (136-145)
[2017-07-04 11:27] LABS: ALBUMIN 3.1 g/dl (3.4-5.0); ALK PHOS 66 U/L (45-117); ANION GAP 9 (8-16); BILIRUBIN,TOTAL 0.3 mg/dL (0.2-1.0); BLOOD UREA NITROGEN 14 mg/dL (7-18); CALCIUM 8.5 mg/dL (8.5-10.1); CO2 29 mmol/L (21-32); CREATININE 0.8 mg/dL (0.7-1.3); GLUCOSE,RANDOM 72 mg/dL (74-106); SGOT/AST 35 U/L (15-37); SGPT/ALT 29 U/L (12-78); TOT PROT 7.1 g/dl (6.4-8.2)
[2017-07-04] MEDS ORDERED: PNEUMOC 13-VAL CONJ-DIP CRM/PF 0.5 ML DISP.SYRIN IM ONE (12:00)
[2017-07-04] MEDS ORDERED: PNEUMOCOCCAL 23 VACCINE 0.5 ML VIAL IM ONE (12:00)
[2017-07-04] MEDS: THIAMINE HCL 100 MG TABLET (FP) PO SCH (21:10)
[2017-07-05] MEDS: PRENATAL VITAMINS W/ FOLIC ACID TABLET (FP) PO SCH (10:11)
[2017-07-05] MEDS: NICOTINE 21 MG/24 HOURS TOPICAL PATCH TD SCH (10:11)
[2017-07-05] MEDS: BUPRENORPHINE/NALOXONE 2 MG/0.5 MG FILM PACKET SL SCH (10:12)
[2017-07-05] MEDS: cloNIDine HCL 0.1 MG TABLET PO SCH ×2 (10:12→21:10)
--- NOTE | 2017-07-05 14:30 | EKG ---
Test Reason : Blood Pressure : / mmHG Vent. Rate : 080 BPM Atrial Rate : 080 BPM P-R Int : 168 ms QRS Dur : 088 ms QT Int : 376 ms P-R-T Axes : 064 054 044 degrees QTc Int : 433 ms NORMAL SINUS RHYTHM BIATRIAL ENLARGEMENT ABNORMAL ECG Confirmed by MD FABIANA, DUDLEY ([id number]) on 07/05/2017 2:30:13 PM Referred By: Connor ARTIS Confirmed By:DUDLEY JUNG MD
[2017-07-05] MEDS: hydrOXYzine PAMOATE 50 MG CAPSULE (FP) PO PRN (21:10)
[2017-07-05] MEDS: THIAMINE HCL 100 MG TABLET (FP) PO SCH (21:10)
[2017-07-06] MEDS: cloNIDine HCL 0.1 MG TABLET PO SCH ×2 (09:56→21:08)
[2017-07-06] MEDS: NICOTINE 21 MG/24 HOURS TOPICAL PATCH TD SCH (09:56)
[2017-07-06] MEDS: PRENATAL VITAMINS W/ FOLIC ACID TABLET (FP) PO SCH (09:56)
[2017-07-06] MEDS: BUPRENORPHINE/NALOXONE 2 MG/0.5 MG FILM PACKET SL SCH (09:56)
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
--- NOTE | 2017-07-06 16:27 | PN ---
S Progress Note (SOAP) Subjective: Patient reports the following: Itch head, groin and anus, and feet, interrupted sleep, body aches, chills. Objective: 07/06/17 16:24 Vital Signs Temperature 97.7 F 07/06/17 06:49 Pulse Rate 80 07/06/17 06:49 Respiratory Rate 18 07/06/17 06:49 Blood Pressure 112/71 07/06/17 06:49 O2 Sat by Pulse Oximetry (%) Laboratory Last Values WBC 4.3 K/mm3 (4.0-10.0) 07/04/17 07:50 RBC 4.85 M/mm3 (4.00-5.60) 07/04/17 07:50 Hgb 14.1 GM/dL (11.7-16.9) D 07/04/17 07:50 Hct 42.7 % (35.4-49) 07/04/17 07:50 MCV 88.0 fl (80-96) 07/04/17 07:50 MCH 29.0 pg (25.7-33.7) 07/04/17 07:50 MCHC 33.0 g/dl (32.0-35.9) 07/04/17 07:50 RDW 15.4 % (11.9-15.9) 07/04/17 07:50 Plt Count 272 K/MM3 (134-434) 07/04/17 07:50 MPV 10.5 fl (7.5-11.1) 07/04/17 07:50 Sodium 140 mmol/L (136-145) 07/04/17 07:50 Potassium 4.4 mmol/L (3.5-5.1) 07/04/17 07:50 Chloride 102 mmol/L (98-107) 07/04/17 07:50 Carbon Dioxide 29 mmol/L (21-32) 07/04/17 07:50 Anion Gap 9 (8-16) 07/04/17 07:50 BUN 14 mg/dL (7-18) 07/04/17 07:50 Creatinine 0.8 mg/dL (0.7-1.3) 07/04/17 07:50 Creat Clearance w eGFR > 60 (>60) 07/04/17 07:50 Random Glucose 72 mg/dL (74-106) L D 07/04/17 07:50 Calcium 8.5 mg/dL (8.5-10.1) 07/04/17 07:50 Total Bilirubin 0.3 mg/dL (0.2-1.0) D 07/04/17 07:50 AST 35 U/L (15-37) D 07/04/17 07:50 ALT 29 U/L (12-78) D 07/04/17 07:50 Alkaline Phosphatase 66 U/L (45-117) 07/04/17 07:50 Total Protein 7.1 g/dl (6.4-8.2) 07/04/17 07:50 Albumin 3.1 g/dl (3.4-5.0) L 07/04/17 07:50 Urine Color Yellow 07/03/17 21:30 Urine Appearance Clear 07/03/17 21:30 Urine pH 7.0 (5.0-8.0) 07/03/17 21:30 Ur Specific [place] 1.021 (1.001-1.035) 07/03/17 21:30 Urine Protein Negative (NEGATIVE) 07/03/17 21:30 Urine Glucose (UA) Negative (NEGATIVE) 07/03/17 21:30 Urine Ketones Negative (NEGATIVE) 07/03/17 21:30 Urine Blood Negative (NEGATIVE) 07/03/17 21:30 Urine Nitrite Negative (NEGATIVE) 07/03/17 21:30 Urine Bilirubin Negative (NEGATIVE) 07/03/17 21:30 Urine Urobilinogen Negative mg/dL (0.2-1.0) 07/03/17 21:30 Ur Leukocyte Esterase Negative (NEGATIVE) 07/03/17 21:30 RPR Titer Nonreactive (NONREACTIVE) 07/04/17 07:50 Patient AOx3, self directing in no apparent distress, mild anxious Full ROM Negative neuro symptoms Skin + discoloration with itch on the forehead Assessment: 07/06/17 16:26 withdrawal symptoms Tinea Capis Plan: Increase Suboxone 4mg QD Continue to monitor Increase fluids Clotrimazole top cream BID for forehead Hydrocortisone top cream REC qd / prn
[2017-07-06] MEDS: CLOTRIMAZOLE 1% CREAM 15 GM TUBE TP SCH (21:08)
[2017-07-06] MEDS: THIAMINE HCL 100 MG TABLET (FP) PO SCH (21:08)
[2017-07-06] MEDS: GABAPENTIN 100 MG CAPSULE (FP) PO SCH (21:09)
[2017-07-06] MEDS: HYDROCORTISONE 2.5% TOPICAL CREAM 30 GM TUBE PR SCH (21:09)
[2017-07-06] MEDS: diphenhydrAMINE HCL 50 MG CAPSULE PO SCH (21:09)
[2017-07-07] MEDS: GABAPENTIN 100 MG CAPSULE (FP) PO SCH ×3 (06:15→21:12)
[2017-07-07] MEDS: BUPRENORPHINE/NALOXONE 2 MG/0.5 MG FILM PACKET SL SCH (09:59)
[2017-07-07] MEDS: cloNIDine HCL 0.1 MG TABLET PO SCH ×2 (09:59→21:12)
[2017-07-07] MEDS: PRENATAL VITAMINS W/ FOLIC ACID TABLET (FP) PO SCH (09:59)
[2017-07-07] MEDS: CLOTRIMAZOLE 1% CREAM 15 GM TUBE TP SCH ×2 (10:00→21:13)
[2017-07-07] MEDS: HYDROCORTISONE 2.5% TOPICAL CREAM 30 GM TUBE PR SCH (10:00)
[2017-07-07] MEDS: NICOTINE 21 MG/24 HOURS TOPICAL PATCH TD SCH (10:00)
--- NOTE | 2017-07-07 14:49 | PN ---
S Progress Note (SOAP) Subjective: patient requesting results hep c 04/2017 Objective: 07/07/17 14:47 Vital Signs - 24 hr 07/06/17 07/07/17 07/07/17 21:43 00:30 03:30 Temperature Pulse Rate 87 Respiratory 16 16 Rate Blood Pressure 113/68 07/07/17 06:45 Temperature 98.1 F Pulse Rate 84 Respiratory 18 Rate Blood Pressure 104/70 Laboratory Tests 07/03/17 07/04/17 07/04/17 21:30 07:50 07:50 WBC 4.3 RBC 4.85 Hgb 14.1 D Hct 42.7 MCV 88.0 MCH 29.0 MCHC 33.0 RDW 15.4 Plt Count 272 MPV 10.5 Sodium 140 Potassium 4.4 Chloride 102 Carbon Dioxide 29 Anion Gap 9 BUN 14 Creatinine 0.8 Creat Clearance w eGFR > 60 Random Glucose 72 L D Calcium 8.5 Total Bilirubin 0.3 D AST 35 D ALT 29 D Alkaline Phosphatase 66 Total Protein 7.1 Albumin 3.1 L Urine Color Yellow Urine Appearance Clear Urine pH 7.0 Ur Specific [place] 1.021 Urine Protein Negative Urine Glucose (UA) Negative Urine Ketones Negative Urine Blood Negative Urine Nitrite Negative Urine Bilirubin Negative Urine Urobilinogen Negative Ur Leukocyte Esterase Negative RPR Titer 07/04/17 07:50 WBC RBC Hgb Hct MCV MCH MCHC RDW Plt Count MPV Sodium Potassium Chloride Carbon Dioxide Anion Gap BUN Creatinine Creat Clearance w eGFR Random Glucose Calcium Total Bilirubin AST ALT Alkaline Phosphatase Total Protein Albumin Urine Color Urine Appearance Urine pH Ur Specific [place] Urine Protein Urine Glucose (UA) Urine Ketones Urine Blood Urine Nitrite Urine Bilirubin Urine Urobilinogen Ur Leukocyte Esterase RPR Titer Nonreactive hep c 05/01/2017 neg Assessment: 07/07/17 14:48 hep c neg - patient informed of all resultsw , hep c test done at [facility] last admission.
[2017-07-07] MEDS ORDERED: BUPRENORPHINE/NALOXONE 2 MG/0.5 MG FILM PACKET SL ONE (16:15)
[2017-07-07] MEDS: diphenhydrAMINE HCL 50 MG CAPSULE PO SCH (21:12)
[2017-07-07] MEDS: THIAMINE HCL 100 MG TABLET (FP) PO SCH (21:12)
[2017-07-08] MEDS: GABAPENTIN 100 MG CAPSULE (FP) PO SCH ×3 (06:42→21:09)
[2017-07-08] MEDS ORDERED: BUPRENORPHINE/NALOXONE 8 MG/2 MG FILM PACKET SL SCH (10:00)
[2017-07-08] MEDS: HYDROCORTISONE 2.5% TOPICAL CREAM 30 GM TUBE PR SCH (10:05)
[2017-07-08] MEDS: cloNIDine HCL 0.1 MG TABLET PO SCH ×2 (10:06→21:09)
[2017-07-08] MEDS: CLOTRIMAZOLE 1% CREAM 15 GM TUBE TP SCH ×2 (10:06→21:11)
[2017-07-08] MEDS: PRENATAL VITAMINS W/ FOLIC ACID TABLET (FP) PO SCH (10:07)
[2017-07-08] MEDS: NICOTINE 21 MG/24 HOURS TOPICAL PATCH TD SCH (10:07)
--- NOTE | 2017-07-08 11:41 | PN ---
[facility] Progress Note (SOAP) Subjective: pateitn comfortable on 8mg daily does not want an increase in dose Objective: 07/08/17 11:41 Vital Signs - 24 hr 07/07/17 07/08/17 07/08/17 23:06 03:30 06:53 Temperature 97.9 F Pulse Rate 73 90 Respiratory 18 18 Rate Blood Pressure 144/65 112/70 Laboratory Tests 07/03/17 07/04/17 07/04/17 21:30 07:50 07:50 WBC 4.3 RBC 4.85 Hgb 14.1 D Hct 42.7 MCV 88.0 MCH 29.0 MCHC 33.0 RDW 15.4 Plt Count 272 MPV 10.5 Sodium 140 Potassium 4.4 Chloride 102 Carbon Dioxide 29 Anion Gap 9 BUN 14 Creatinine 0.8 Creat Clearance w eGFR > 60 Random Glucose 72 L D Calcium 8.5 Total Bilirubin 0.3 D AST 35 D ALT 29 D Alkaline Phosphatase 66 Total Protein 7.1 Albumin 3.1 L Urine Color Yellow Urine Appearance Clear Urine pH 7.0 Ur Specific [place] 1.021 Urine Protein Negative Urine Glucose (UA) Negative Urine Ketones Negative Urine Blood Negative Urine Nitrite Negative Urine Bilirubin Negative Urine Urobilinogen Negative Ur Leukocyte Esterase Negative RPR Titer 07/04/17 07:50 WBC RBC Hgb Hct MCV MCH MCHC RDW Plt Count MPV Sodium Potassium Chloride Carbon Dioxide Anion Gap BUN Creatinine Creat Clearance w eGFR Random Glucose Calcium Total Bilirubin AST ALT Alkaline Phosphatase Total Protein Albumin Urine Color Urine Appearance Urine pH Ur Specific [place] Urine Protein Urine Glucose (UA) Urine Ketones Urine Blood Urine Nitrite Urine Bilirubin Urine Urobilinogen Ur Leukocyte Esterase RPR Titer Nonreactive Assessment: 07/08/17 11:41 oud - cont mat w suboxoen 8mg daily
[2017-07-08] MEDS: BUPRENORPHINE/NALOXONE 2 MG/0.5 MG FILM PACKET SL SCH (11:50)
[2017-07-08] MEDS: THIAMINE HCL 100 MG TABLET (FP) PO SCH (21:09)
[2017-07-08] MEDS: diphenhydrAMINE HCL 50 MG CAPSULE PO SCH (21:10)
[2017-07-09] MEDS: GABAPENTIN 100 MG CAPSULE (FP) PO SCH ×3 (06:25→21:10)
[2017-07-09] MEDS: cloNIDine HCL 0.1 MG TABLET PO SCH ×2 (09:59→21:10)
[2017-07-09] MEDS: PRENATAL VITAMINS W/ FOLIC ACID TABLET (FP) PO SCH (09:59)
[2017-07-09] MEDS: BUPRENORPHINE/NALOXONE 8 MG/2 MG FILM PACKET SL SCH (09:59)
[2017-07-09] MEDS: NICOTINE 21 MG/24 HOURS TOPICAL PATCH TD SCH (09:59)
[2017-07-09] MEDS: HYDROCORTISONE 2.5% TOPICAL CREAM 30 GM TUBE PR SCH (10:00)
[2017-07-09] MEDS: CLOTRIMAZOLE 1% CREAM 15 GM TUBE TP SCH ×2 (10:00→21:11)
[2017-07-09] MEDS: THIAMINE HCL 100 MG TABLET (FP) PO SCH (21:10)
[2017-07-09] MEDS: diphenhydrAMINE HCL 50 MG CAPSULE PO SCH (21:10)
[2017-07-10] MEDS: GABAPENTIN 100 MG CAPSULE (FP) PO SCH ×3 (06:42→21:12)
[2017-07-10] MEDS: BUPRENORPHINE/NALOXONE 8 MG/2 MG FILM PACKET SL SCH (09:52)
[2017-07-10] MEDS: PRENATAL VITAMINS W/ FOLIC ACID TABLET (FP) PO SCH (09:52)
[2017-07-10] MEDS: cloNIDine HCL 0.1 MG TABLET PO SCH ×2 (09:52→21:12)
[2017-07-10] MEDS: NICOTINE 21 MG/24 HOURS TOPICAL PATCH TD SCH (09:53)
[2017-07-10] MEDS: HYDROCORTISONE 2.5% TOPICAL CREAM 30 GM TUBE PR SCH (09:53)
[2017-07-10] MEDS: CLOTRIMAZOLE 1% CREAM 15 GM TUBE TP SCH ×2 (09:53→21:13)
[2017-07-10] MEDS: THIAMINE HCL 100 MG TABLET (FP) PO SCH (21:12)
[2017-07-10] MEDS: diphenhydrAMINE HCL 50 MG CAPSULE PO SCH (21:12)
[2017-07-11] MEDS: GABAPENTIN 100 MG CAPSULE (FP) PO SCH ×3 (06:43→21:08)
[2017-07-11] MEDS: BUPRENORPHINE/NALOXONE 8 MG/2 MG FILM PACKET SL SCH (09:38)
[2017-07-11] MEDS: CLOTRIMAZOLE 1% CREAM 15 GM TUBE TP SCH ×2 (09:38→21:09)
[2017-07-11] MEDS: cloNIDine HCL 0.1 MG TABLET PO SCH ×2 (09:38→21:08)
[2017-07-11] MEDS: HYDROCORTISONE 2.5% TOPICAL CREAM 30 GM TUBE PR SCH (09:38)
[2017-07-11] MEDS: PRENATAL VITAMINS W/ FOLIC ACID TABLET (FP) PO SCH (09:38)
[2017-07-11] MEDS: NICOTINE 21 MG/24 HOURS TOPICAL PATCH TD SCH (09:38)
[2017-07-11] MEDS: diphenhydrAMINE HCL 50 MG CAPSULE PO SCH (21:08)
[2017-07-11] MEDS: THIAMINE HCL 100 MG TABLET (FP) PO SCH (21:08)
[2017-07-12] MEDS: GABAPENTIN 100 MG CAPSULE (FP) PO SCH ×3 (06:38→21:12)
[2017-07-12] MEDS: PRENATAL VITAMINS W/ FOLIC ACID TABLET (FP) PO SCH (09:40)
[2017-07-12] MEDS: BUPRENORPHINE/NALOXONE 8 MG/2 MG FILM PACKET SL SCH (09:40)
[2017-07-12] MEDS: HYDROCORTISONE 2.5% TOPICAL CREAM 30 GM TUBE PR SCH (09:41)
[2017-07-12] MEDS: cloNIDine HCL 0.1 MG TABLET PO SCH ×2 (09:41→21:12)
[2017-07-12] MEDS: CLOTRIMAZOLE 1% CREAM 15 GM TUBE TP SCH ×2 (09:41→21:13)
[2017-07-12] MEDS: NICOTINE 21 MG/24 HOURS TOPICAL PATCH TD SCH (09:41)
[2017-07-12] MEDS: diphenhydrAMINE HCL 50 MG CAPSULE PO SCH (21:11)
[2017-07-12] MEDS: THIAMINE HCL 100 MG TABLET (FP) PO SCH (21:12)
[2017-07-13] MEDS: GABAPENTIN 100 MG CAPSULE (FP) PO SCH ×3 (06:19→21:08)
[2017-07-13] MEDS: PRENATAL VITAMINS W/ FOLIC ACID TABLET (FP) PO SCH (09:52)
[2017-07-13] MEDS: cloNIDine HCL 0.1 MG TABLET PO SCH ×2 (09:52→21:08)
[2017-07-13] MEDS: BUPRENORPHINE/NALOXONE 8 MG/2 MG FILM PACKET SL SCH (09:53)
[2017-07-13] MEDS: NICOTINE 21 MG/24 HOURS TOPICAL PATCH TD SCH (09:53)
[2017-07-13] MEDS: HYDROCORTISONE 2.5% TOPICAL CREAM 30 GM TUBE PR SCH (09:54)
[2017-07-13] MEDS: CLOTRIMAZOLE 1% CREAM 15 GM TUBE TP SCH ×2 (09:54→21:09)
[2017-07-13] MEDS: THIAMINE HCL 100 MG TABLET (FP) PO SCH (21:08)
[2017-07-13] MEDS: diphenhydrAMINE HCL 50 MG CAPSULE PO SCH (21:08)
[2017-07-14] MEDS: GABAPENTIN 100 MG CAPSULE (FP) PO SCH ×3 (06:33→21:15)
[2017-07-14] MEDS: PRENATAL VITAMINS W/ FOLIC ACID TABLET (FP) PO SCH (09:48)
[2017-07-14] MEDS: BUPRENORPHINE/NALOXONE 8 MG/2 MG FILM PACKET SL SCH (09:48)
[2017-07-14] MEDS: HYDROCORTISONE 2.5% TOPICAL CREAM 30 GM TUBE PR SCH (09:48)
[2017-07-14] MEDS: NICOTINE 21 MG/24 HOURS TOPICAL PATCH TD SCH (09:48)
[2017-07-14] MEDS: CLOTRIMAZOLE 1% CREAM 15 GM TUBE TP SCH ×2 (09:48→21:15)
[2017-07-14] MEDS: cloNIDine HCL 0.1 MG TABLET PO SCH ×2 (09:48→21:15)
[2017-07-14] MEDS: THIAMINE HCL 100 MG TABLET (FP) PO SCH (21:15)
[2017-07-14] MEDS: diphenhydrAMINE HCL 50 MG CAPSULE PO SCH (21:15)
[2017-07-15] MEDS: GABAPENTIN 100 MG CAPSULE (FP) PO SCH ×3 (06:34→21:08)
[2017-07-15] MEDS: PRENATAL VITAMINS W/ FOLIC ACID TABLET (FP) PO SCH (09:40)
[2017-07-15] MEDS: CLOTRIMAZOLE 1% CREAM 15 GM TUBE TP SCH ×2 (09:41→21:08)
[2017-07-15] MEDS: NICOTINE 21 MG/24 HOURS TOPICAL PATCH TD SCH (09:41)
[2017-07-15] MEDS: cloNIDine HCL 0.1 MG TABLET PO SCH (09:41)
[2017-07-15] MEDS: HYDROCORTISONE 2.5% TOPICAL CREAM 30 GM TUBE PR SCH (09:41)
[2017-07-15] MEDS: BUPRENORPHINE/NALOXONE 8 MG/2 MG FILM PACKET SL SCH (10:01)
[2017-07-15] MEDS: diphenhydrAMINE HCL 50 MG CAPSULE PO SCH (21:08)
[2017-07-15] MEDS: THIAMINE HCL 100 MG TABLET (FP) PO SCH (21:08)
[2017-07-16] MEDS: GABAPENTIN 100 MG CAPSULE (FP) PO SCH ×3 (06:30→21:19)
[2017-07-16] MEDS: PRENATAL VITAMINS W/ FOLIC ACID TABLET (FP) PO SCH (10:16)
[2017-07-16] MEDS: NICOTINE 21 MG/24 HOURS TOPICAL PATCH TD SCH (10:17)
[2017-07-16] MEDS: BUPRENORPHINE/NALOXONE 8 MG/2 MG FILM PACKET SL SCH (10:17)
[2017-07-16] MEDS: HYDROCORTISONE 2.5% TOPICAL CREAM 30 GM TUBE PR SCH (10:17)
[2017-07-16] MEDS: CLOTRIMAZOLE 1% CREAM 15 GM TUBE TP SCH ×2 (10:17→21:19)
[2017-07-16] MEDS: diphenhydrAMINE HCL 50 MG CAPSULE PO SCH (21:18)
[2017-07-16] MEDS: THIAMINE HCL 100 MG TABLET (FP) PO SCH (21:19)
[2017-07-17] MEDS: GABAPENTIN 100 MG CAPSULE (FP) PO SCH ×3 (06:34→21:15)
[2017-07-17] MEDS: PRENATAL VITAMINS W/ FOLIC ACID TABLET (FP) PO SCH (09:41)
[2017-07-17] MEDS: NICOTINE 21 MG/24 HOURS TOPICAL PATCH TD SCH (09:41)
[2017-07-17] MEDS: HYDROCORTISONE 2.5% TOPICAL CREAM 30 GM TUBE PR SCH (09:41)
[2017-07-17] MEDS: CLOTRIMAZOLE 1% CREAM 15 GM TUBE TP SCH ×2 (09:41→21:15)
[2017-07-17] MEDS: BUPRENORPHINE/NALOXONE 8 MG/2 MG FILM PACKET SL SCH (09:42)
[2017-07-17] MEDS: diphenhydrAMINE HCL 50 MG CAPSULE PO SCH (21:15)
[2017-07-17] MEDS: THIAMINE HCL 100 MG TABLET (FP) PO SCH (21:15)
[2017-07-18] MEDS: GABAPENTIN 100 MG CAPSULE (FP) PO SCH ×3 (06:31→21:15)
[2017-07-18] MEDS: HYDROCORTISONE 2.5% TOPICAL CREAM 30 GM TUBE PR SCH (09:51)
[2017-07-18] MEDS: BUPRENORPHINE/NALOXONE 8 MG/2 MG FILM PACKET SL SCH (09:51)
[2017-07-18] MEDS: NICOTINE 21 MG/24 HOURS TOPICAL PATCH TD SCH (09:51)
[2017-07-18] MEDS: PRENATAL VITAMINS W/ FOLIC ACID TABLET (FP) PO SCH (09:51)
[2017-07-18] MEDS: CLOTRIMAZOLE 1% CREAM 15 GM TUBE TP SCH ×2 (09:51→21:16)
[2017-07-18] MEDS ORDERED: PT OWN MED DRAWER 7, Y5N ONE (20:37)
[2017-07-18] MEDS: THIAMINE HCL 100 MG TABLET (FP) PO SCH (21:15)
[2017-07-18] MEDS: diphenhydrAMINE HCL 50 MG CAPSULE PO SCH (21:15)
[2017-07-19] MEDS: GABAPENTIN 100 MG CAPSULE (FP) PO SCH ×3 (06:33→21:13)
[2017-07-19] MEDS: PRENATAL VITAMINS W/ FOLIC ACID TABLET (FP) PO SCH (09:57)
[2017-07-19] MEDS: CLOTRIMAZOLE 1% CREAM 15 GM TUBE TP SCH ×2 (09:58→21:13)
[2017-07-19] MEDS: HYDROCORTISONE 2.5% TOPICAL CREAM 30 GM TUBE PR SCH (09:58)
[2017-07-19] MEDS: BUPRENORPHINE/NALOXONE 8 MG/2 MG FILM PACKET SL SCH (09:59)
[2017-07-19] MEDS: NICOTINE 21 MG/24 HOURS TOPICAL PATCH TD SCH (09:59)
[2017-07-19] MEDS: THIAMINE HCL 100 MG TABLET (FP) PO SCH (21:13)
[2017-07-19] MEDS: diphenhydrAMINE HCL 50 MG CAPSULE PO SCH (21:13)
[2017-07-20] MEDS: GABAPENTIN 100 MG CAPSULE (FP) PO SCH (06:53)
[2017-07-20 06:57] VITALS: BP 138/80; PULSE 83; TEMP 98.3
[2017-07-20] MEDS: BUPRENORPHINE/NALOXONE 8 MG/2 MG FILM PACKET SL SCH (09:55)
[2017-07-20] MEDS: PRENATAL VITAMINS W/ FOLIC ACID TABLET (FP) PO SCH (09:55)
[2017-07-20] MEDS: CLOTRIMAZOLE 1% CREAM 15 GM TUBE TP SCH (09:55)
[2017-07-20] MEDS: NICOTINE 21 MG/24 HOURS TOPICAL PATCH TD SCH (09:55)
[2017-07-20] MEDS: HYDROCORTISONE 2.5% TOPICAL CREAM 30 GM TUBE PR SCH (09:55)
--- NOTE | 2017-07-20 13:59 | PN ---
Psychiatric Progress Note Vital Signs: Vital Signs Period Temp Pulse Resp BP Sys/[place] Pulse Ox Last 24 Hr 98.3 F 83 16-18 138/80 Date of Session: 07/20/17 Chief Complaint:: discharge visit HPI: Patient has addressed opioid, nicotine dependence comorbid PTSD and Bipolar disorder. ROS: Bronchial asthma medically managed. Current Medications: Active Medications Generic Name Dose Route Start Last Admin Trade Name Freq PRN Reason Stop Dose Admin Acetaminophen 650 mg 07/03/17 15:55 Tylenol - PO Q4H PRN FEVER Al Hydroxide/Mg Hydroxide 30 ml 07/03/17 15:55 Mylanta Oral Suspension - PO Q6H PRN DYSPEPSIA Buprenorphine/Naloxone 1 each 07/15/17 10:00 07/20/17 09:55 Suboxone 8mg/2mg Sl Film - SL 07/22/17 09:59 1 each DAILY QUIN Administration Clotrimazole 1 applic 07/06/17 22:00 07/20/17 09:55 Lotrimin 1% Cream - TP Not Given BID QUIN Diphenhydramine HCl 100 mg 07/06/17 22:00 07/19/17 21:13 Benadryl - PO 100 mg HS QUIN Administration Eucalyptus/Menthol/Phenol/Sorbitol 1 each 07/03/17 15:55 Cepastat Lozenge - MM Q4H PRN SORE THROAT Gabapentin 100 mg 07/06/17 22:00 07/20/17 06:53 Neurontin - PO 100 mg TID QUIN Administration Guaifenesin 10 ml 07/03/17 15:55 Robitussin Dm - PO Q6H PRN COUGH Hydrocortisone 1 applic 07/06/17 17:45 07/20/17 09:55 Anusol 2.5% Hc Cream - FL Not Given DAILY QUIN Hydroxyzine Pamoate 50 mg 07/03/17 15:55 07/05/17 21:10 Vistaril - PO 50 mg Q4H PRN Administration AGITATION Ibuprofen 400 mg 07/03/17 15:55 07/04/17 09:51 Motrin - PO 400 mg Q6H PRN Administration Pain level 4-6 Loperamide HCl 4 mg 07/03/17 15:55 Imodium - PO Q6H PRN DIARRHEA Magnesium Citrate 300 ml 07/03/17 15:55 Citroma - PO Q48H PRN CONSTIPATION Magnesium Hydroxide 30 ml 07/03/17 15:55 Milk Of Magnesia - PO DAILY PRN CONSTIPATION Nicotine 21 mg 07/03/17 16:45 07/20/17 09:55 Nicoderm Patch - TD Not Given DAILY QUIN Nicotine Polacrilex 2 mg 07/03/17 15:55 07/05/17 14:27 Nicorette Gum - BC 2 mg Q2H PRN Administration NICOTINE REPLACEMENT RX Multivit/Folic Acid/Iron 1 tab 07/04/17 10:00 07/20/17 09:55 Vitamins (Sjr) - PO 1 tab DAILY QUNI Administration Pseudoephedrine/Triprolidine 1 combo 07/03/17 15:55 Actifed - PO TID PRN NASAL CONGESTION Thiamine HCl 100 mg 07/03/17 22:00 07/19/17 21:13 Vitamin B1 - PO 100 mg HS QUIN Administration Current Side Effect: No Lab tests ordered: No Lab tests reviewed: Yes Provider note:: Patient has completed today his treatment and met his goals, will continue to address his issues at [facility]. Patient focused on importance of changing attitudes/behavior for the utilization of supports available to prevent relapses. Patient was encouraged to continue maintain abstinence. Patient is stable for discharge today. Total face to face time:: 15 Mental Status Exam - Mental Status Exam Alert and Oriented to: Time, Place, Person Cognitive Function: Good Patient Appearance: Well Groomed Mood: Hopeful Affect: Appropriate, Mood Congruent Patient Behavior: Appropriate, Cooperative Speech Pattern: Clear, Appropriate Voice Loudness: Normal Thought Process: Intact, Goal Oriented Thought Disorder: Not Present Hallucinations: Denies Suicidal Ideation: Denies Homicidal Ideation: Denies Insight/Judgement: Fair Sleep: Fair Appetite: Good Muscle strength/Tone: Normal Gait/Station: Normal Psychiatric Treatment Plan - Problem List (3) Post-traumatic stress disorder Comment: Self-report. (4) Nicotine dependence Qualifiers: Nicotine product type: cigarettes Substance use status: unspecified nicotine-induced disorder Qualified Code(s): F17.219 - Nicotine dependence, cigarettes, with unspecified nicotine-induced disorders
== END 2017-07-20 12:30 | disposition home or self-care (01) | DRG 772 ==
LOC: YASAS 12:32 → Y5N 15:48
PROVIDERS: ADMIT Psychiatry & Neurology Psychiatry; ATTEND Psychiatry & Neurology Psychiatry
PROC: HZ42ZZZ Group Counseling for Substance Abuse Treatment, Cognitive-Behavioral (ICD-10-PCS; principal; 2017-07-03)
DX: F11.20 Opioid dependence, uncomplicated (principal); F17.210 Nicotine dependence, cigarettes, uncomplicated; F31.9 Bipolar disorder, unspecified; F43.10 Post-traumatic stress disorder, unspecified; Z87.438 Personal history of other diseases of male genital organs; Z86.19 Personal history of other infectious and parasitic diseases; Z91.5 Personal history of self-harm; Z59.0 Homelessness
CPT/HCPCS: 36415; 80053; 81003; 85027; 86593; 90732; 93005; 93010; G0009; J0735

== ENCOUNTER 2017-09-06 10:42 | Inpatient (IN) | payer OTHER ==
[2017-09-06 11:26] VITALS: BMI 25.1
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
[2017-09-06] MEDS ORDERED: MAGNESIUM CITRATE 300 ML BOTTLE PO PRN (16:58)
[2017-09-06] MEDS ORDERED: MAGNESIUM HYDROX 2400MG/30ML ORAL SUSPENSION 30 ML CUP PO PRN (16:58)
[2017-09-06] MEDS ORDERED: guaiFENesin/D-METHORPHAN HB 10 ML UNIT-DOSE CUPS PO PRN (16:58)
[2017-09-06] MEDS ORDERED: MAG HYDROX/AL HYDROX/SIMETH 30 ML UNIT-DOSE CUP PO PRN (16:58)
[2017-09-06] MEDS ORDERED: ACETAMINOPHEN 325 MG TABLET (FP) PO PRN (16:58)
[2017-09-06] MEDS ORDERED: chlordiazePOXIDE HCL 25 MG CAPSULE PO PRN (16:58)
[2017-09-06] MEDS ORDERED: IBUPROFEN 400 MG TABLET (FP) PO PRN (16:58)
[2017-09-06] MEDS ORDERED: METHADONE HCL 10 MG TABLET (FOR DETOX USE ONLY) PO ONE ×2 (16:58→23:00)
[2017-09-06] MEDS ORDERED: LOPERAMIDE HCL 2 MG CAPSULE PO PRN (16:58)
[2017-09-06] MEDS ORDERED: MENTHOL/PHENOL 1 EACH UD MM PRN (16:58)
[2017-09-06] MEDS ORDERED: NICOTINE POLACRILEX 2 MG GUM BC PRN (16:58)
[2017-09-06] MEDS ORDERED: hydrOXYzine PAMOATE 50 MG CAPSULE (FP) PO PRN (16:58)
[2017-09-06] MEDS ORDERED: P-EPHED 60MG/TRIPROLIDI 2.5MG TABLET PO PRN (16:58)
[2017-09-06] MEDS ORDERED: HYDROCORTISONE 0.5% TOPICAL OINTMENT TUBE TP PRN (17:09)
[2017-09-06] MEDS: chlordiazePOXIDE HCL 25 MG CAPSULE PO SCH ×2 (18:21→22:28)
[2017-09-06] MEDS: NICOTINE 14 MG/24 HOURS TOPICAL PATCH TD SCH (18:23)
[2017-09-06 21:08] LABS: URINE APPEARANCE TURBID; URINE BILIRUBIN NEGATIVE (<2.0 mg/dL); URINE COLOR YELLOW; URINE GLUCOSE (UA) NEGATIVE (NEGATIVE); URINE KETONE NEGATIVE (NEGATIVE); URINE LEUK ESTERASE NEGATIVE (NEGATIVE); URINE NITRITE NEGATIVE (NEGATIVE)
[2017-09-06 21:10] LABS: URINE PROTEIN 1+ (NEGATIVE)
[2017-09-06 21:16] LABS: URINE MUCUS FEW; YEAST MANY
[2017-09-06] MEDS ORDERED: MELATONIN 5 MG TABLETS PO PRN (22:00)
[2017-09-06] MEDS ORDERED: BACITRACIN 15 GM TUBE TOPICAL OINTMENT TP SCH (22:00)
[2017-09-06] MEDS: BACITRACIN 0.9 GM PACKET TP SCH (22:27)
[2017-09-06] MEDS: THIAMINE HCL 100 MG TABLET (FP) PO SCH (22:48)
[2017-09-07] MEDS: chlordiazePOXIDE HCL 25 MG CAPSULE PO SCH ×4 (05:33→22:08)
[2017-09-07] MEDS ORDERED: METHADONE HCL 10 MG TABLET (FOR DETOX USE ONLY) PO SCH (10:00)
[2017-09-07] MEDS: PRENATAL VITAMINS W/ FOLIC ACID TABLET (FP) PO SCH (10:15)
[2017-09-07] MEDS: BACITRACIN 0.9 GM PACKET TP SCH ×2 (10:15→22:08)
[2017-09-07] MEDS: NICOTINE 14 MG/24 HOURS TOPICAL PATCH TD SCH (10:16)
--- NOTE | 2017-09-07 10:47 | EKG ---
Test Reason : Blood Pressure : / mmHG Vent. Rate : 074 BPM Atrial Rate : 074 BPM P-R Int : 158 ms QRS Dur : 092 ms QT Int : 406 ms P-R-T Axes : 059 060 042 degrees QTc Int : 450 ms NORMAL SINUS RHYTHM WITH SINUS ARRHYTHMIA NORMAL ECG WHEN COMPARED WITH ECG OF 03-JUL-2017 23:08, NO SIGNIFICANT CHANGE WAS FOUND Confirmed by JAVIER PEMBERTON MD ([id number]) on 09/07/2017 10:46:50 AM Referred By: Confirmed By:JAVIER PEMBERTON MD
--- NOTE | 2017-09-07 11:37 | PN ---
[facility] CIWA - CIWA Score Nausea/Vomitin Muscle Tremors: 3 Anxiety: 3 Agitation: 2 Paroxysmal Sweats: 1-Minimal Palms Moist Orientation: 0-Oriented Tacttile Disturbances: 1-Very Mild Itch/Numbness Auditory Disturbances: 1-Very Mild Visual Disturbances: 0-None Headache: 2-Mild CIWA-Ar Total Score: 16 BHS COWS - Scale Resting Pulse: 2= [place] 101-120 Sweatin= Chills/Flushing Restless Observation: 3= Extraneous Movement Pupil Size: 1= Pupils >than Normal Bone or Joint Aches: 2= Severe Diffuse Aches Runny Nose/ Eye Tearin= Runny Nose/Eyes GI Upset > 30mins: 2= Nausea/Diarrhea Tremor Observation of Outstretched Hands: 2= Slight Tremor Visible Yawning Observation: 1= 1-2x During Session Anxiety or Irritability: 2=Irritable/Anxious Goose Flesh Skin: 0=Smooth Skin COWS Score: 18 [facility] Progress Note (SOAP) Subjective: ALERT,IRRITABLE,ANXIOUS,INTERRUPTED SLEEP,TREMOR,PAIN IN THE BODY AND BACK Objective: 09/07/17 11:34 Vital Signs Temperature 97.9 F 09/07/17 10:16 Pulse Rate 101 H 09/07/17 10:16 Respiratory Rate 20 09/07/17 10:16 Blood Pressure 133/70 09/07/17 10:16 O2 Sat by Pulse Oximetry (%) EKG NSR ITH SSINUS ARRHYTHMIA PROLONG QT408/450 Laboratory Last Values Urine Color Yellow 09/06/17 18:42 Urine Appearance Turbid 09/06/17 18:42 Urine pH 5.0 (5.0-8.0) D 09/06/17 18:42 Ur Specific [place] 1.032 (1.001-1.035) 09/06/17 18:42 Urine Protein 1+ (NEGATIVE) H 09/06/17 18:42 Urine Glucose (UA) Negative (NEGATIVE) 09/06/17 18:42 Urine Ketones Negative (NEGATIVE) 09/06/17 18:42 Urine Blood Negative (NEGATIVE) 09/06/17 18:42 Urine Nitrite Negative (NEGATIVE) 09/06/17 18:42 Urine Bilirubin Negative (<2.0 mg/dL) 09/06/17 18:42 Urine Urobilinogen 2.0 mg/dL (0.2-1.0) 09/06/17 18:42 Ur Leukocyte Esterase Negative (NEGATIVE) 09/06/17 18:42 Urine WBC (Auto) 13 /hpf (3-5) 09/06/17 18:42 Urine RBC (Auto) 5 /hpf (0-3) 09/06/17 18:42 Urine Mucus Few 09/06/17 18:42 Urine Yeast Many 09/06/17 18:42 LABS PENDING Assessment: 09/07/17 11:36 WITHDRAWAL SYMPTOM Plan: CONTINUE DETOX
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
[2017-09-07] MEDS: HYDROCORTISONE 1% TOPICAL CREAM 30 GM TUBE TP PRN (13:01)
[2017-09-07] MEDS ORDERED: diphenhydrAMINE HCL 25 MG CAPSULE (FP) PO ONE (20:33)
[2017-09-07] MEDS ORDERED: diphenhydrAMINE HCL 50 MG CAPSULE PO PRN (22:00)
[2017-09-07] MEDS: THIAMINE HCL 100 MG TABLET (FP) PO SCH (22:08)
[2017-09-08] MEDS: chlordiazePOXIDE HCL 25 MG CAPSULE PO SCH ×2 (05:16→10:05)
[2017-09-08 08:59] VITALS: BP 146/80; PULSE 100; TEMP 97.9
[2017-09-08] MEDS ORDERED: METHADONE HCL 5 MG TABLET (FOR DETOX USE ONLY) PO SCH (10:00)
[2017-09-08] MEDS: BACITRACIN 0.9 GM PACKET TP SCH (10:05)
[2017-09-08] MEDS: PRENATAL VITAMINS W/ FOLIC ACID TABLET (FP) PO SCH (10:05)
[2017-09-08] MEDS: NICOTINE 14 MG/24 HOURS TOPICAL PATCH TD SCH (10:06)
[2017-09-08] MEDS: HYDROCORTISONE 1% TOPICAL CREAM 30 GM TUBE TP PRN (10:06)
--- NOTE | 2017-09-08 11:50 | PN ---
S CIWA - CIWA Score Nausea/Vomitin Muscle Tremors: 3 Anxiety: 3 Agitation: 2 Paroxysmal Sweats: 1-Minimal Palms Moist Orientation: 0-Oriented Tacttile Disturbances: 1-Very Mild Itch/Numbness Auditory Disturbances: 1-Very Mild Visual Disturbances: 0-None Headache: 2-Mild CIWA-Ar Total Score: 16 BHS COWS - Scale Resting Pulse: 1= [place] 81-100 Sweatin= Chills/Flushing Restless Observation: 3= Extraneous Movement Pupil Size: 1= Pupils >than Normal Bone or Joint Aches: 2= Severe Diffuse Aches Runny Nose/ Eye Tearin= Runny Nose/Eyes GI Upset > 30mins: 2= Nausea/Diarrhea Tremor Observation of Outstretched Hands: 2= Slight Tremor Visible Yawning Observation: 1= 1-2x During Session Anxiety or Irritability: 2=Irritable/Anxious Goose Flesh Skin: 0=Smooth Skin COWS Score: 17 [facility] Progress Note (SOAP) Subjective: ALERT,IRRITABLE,ANXIOUS,TREMOR,PAIN IN THE BODY AND BACK Objective: 09/08/17 11:48 Vital Signs Temperature 97.9 F 09/08/17 08:58 Pulse Rate 100 H 09/08/17 08:58 Respiratory Rate 20 09/08/17 08:58 Blood Pressure 146/80 09/08/17 08:58 O2 Sat by Pulse Oximetry (%) Laboratory Last Values Urine Color Yellow 09/06/17 18:42 Urine Appearance Turbid 09/06/17 18:42 Urine pH 5.0 (5.0-8.0) D 09/06/17 18:42 Ur Specific [place] 1.032 (1.001-1.035) 09/06/17 18:42 Urine Protein 1+ (NEGATIVE) H 09/06/17 18:42 Urine Glucose (UA) Negative (NEGATIVE) 09/06/17 18:42 Urine Ketones Negative (NEGATIVE) 09/06/17 18:42 Urine Blood Negative (NEGATIVE) 09/06/17 18:42 Urine Nitrite Negative (NEGATIVE) 09/06/17 18:42 Urine Bilirubin Negative (<2.0 mg/dL) 09/06/17 18:42 Urine Urobilinogen 2.0 mg/dL (0.2-1.0) 09/06/17 18:42 Ur Leukocyte Esterase Negative (NEGATIVE) 09/06/17 18:42 Urine WBC (Auto) 13 /hpf (3-5) 09/06/17 18:42 Urine RBC (Auto) 5 /hpf (0-3) 09/06/17 18:42 Urine Mucus Few 09/06/17 18:42 Urine Yeast Many 09/06/17 18:42 Assessment: 09/08/17 11:50 WITHDRAWAL SYMPTOM Plan: CONTINUE DETOX
--- NOTE | 2017-09-08 11:53 | PN ---
S Progress Note Note: PATIENT DID NOT WANT TO COMPLETE TREATMENT,ALL ATTEMPTS TOP CONVINCE PATIENT TO STAY WITH NO AVAIL, SIGNED RELEASE AMA,SEEN BY COUNSELOR
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
[2017-09-08] MEDS ORDERED: chlordiazePOXIDE 5 MG CAPSULE PO SCH (17:00)
[2017-09-09] MEDS ORDERED: chlordiazePOXIDE HCL 10 MG CAPSULE PO SCH (17:00)
[2017-09-10] MEDS ORDERED: METHADONE HCL 10 MG TABLET (FOR DETOX USE ONLY) PO SCH (10:00)
[2017-09-11] MEDS ORDERED: METHADONE HCL 5 MG TABLET (FOR DETOX USE ONLY) PO SCH (06:00)
== END 2017-09-08 12:10 | disposition left against medical advice (07) | DRG 770 ==
LOC: YASAS 10:42 → Y6N 14:51
PROVIDERS: ADMIT Internal Medicine; ATTEND Internal Medicine
PROC: HZ2ZZZZ Detoxification Services for Substance Abuse Treatment (ICD-10-PCS; principal; 2017-09-06)
DX: F11.23 Opioid dependence with withdrawal (principal); F10.230 Alcohol dependence with withdrawal, uncomplicated; F14.20 Cocaine dependence, uncomplicated; F17.210 Nicotine dependence, cigarettes, uncomplicated; F31.9 Bipolar disorder, unspecified; G47.00 Insomnia, unspecified; I49.9 Cardiac arrhythmia, unspecified; L29.9 Pruritus, unspecified
CPT/HCPCS: 81003; 81015; 93005; 93010

== ENCOUNTER 2018-02-22 11:32 | Inpatient (IN) | payer OTHER ==
[2018-02-22 14:32] VITALS: BMI 23.6
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
[2018-02-22] MEDS ORDERED: ACETAMINOPHEN 325 MG TABLET (FP) PO PRN (14:56)
[2018-02-22] MEDS ORDERED: IBUPROFEN 400 MG TABLET (FP) PO PRN (14:56)
[2018-02-22] MEDS ORDERED: P-EPHED 60MG/TRIPROLIDI 2.5MG TABLET PO PRN (14:56)
[2018-02-22] MEDS ORDERED: guaiFENesin/D-METHORPHAN HB 10 ML UNIT-DOSE CUPS PO PRN (14:56)
[2018-02-22] MEDS ORDERED: diazePAM 5 MG TABLET PO PRN (14:56)
[2018-02-22] MEDS ORDERED: MENTHOL/PHENOL 1 EACH UD MM PRN (14:56)
[2018-02-22] MEDS ORDERED: NICOTINE POLACRILEX 2 MG GUM BUC PRN (14:56)
[2018-02-22] MEDS ORDERED: MAGNESIUM CITRATE 300 ML BOTTLE PO PRN (14:56)
[2018-02-22] MEDS ORDERED: LOPERAMIDE HCL 2 MG CAPSULE PO PRN (14:56)
[2018-02-22] MEDS ORDERED: MAGNESIUM HYDROX 2400MG/30ML ORAL SUSPENSION 30 ML CUP PO PRN (14:56)
[2018-02-22] MEDS ORDERED: METHADONE HCL 10 MG TABLET (FOR DETOX USE ONLY) PO ONE ×2 (15:30→23:00)
[2018-02-22] MEDS: NICOTINE 21 MG/24 HOURS TOPICAL PATCH TD SCH (17:56)
[2018-02-22] MEDS ORDERED: chlordiazePOXIDE HCL 25 MG CAPSULE PO PRN (17:59)
[2018-02-22] MEDS ORDERED: chlordiazePOXIDE HCL 25 MG CAPSULE PO ONE (18:30)
[2018-02-22] MEDS ORDERED: MELATONIN 5 MG TABLETS PO PRN (22:00)
[2018-02-22] MEDS: CYCLOBENZAPRINE HCL 10 MG TABLET (FP) PO PRN (22:12)
[2018-02-22] MEDS: chlordiazePOXIDE HCL 25 MG CAPSULE PO SCH (22:12)
[2018-02-22] MEDS: THIAMINE HCL 100 MG TABLET (FP) PO SCH (22:12)
[2018-02-22] MEDS: cloNIDine HCL 0.1 MG TABLET PO SCH (22:12)
[2018-02-22 23:52] LABS: URINE APPEARANCE CLEAR; URINE BILIRUBIN NEGATIVE (<2.0 mg/dL); URINE COLOR YELLOW; URINE GLUCOSE (UA) NEGATIVE (NEGATIVE); URINE KETONE TRACE (NEGATIVE); URINE LEUK ESTERASE NEGATIVE (NEGATIVE); URINE NITRITE NEGATIVE (NEGATIVE); URINE PROTEIN NEGATIVE (NEGATIVE); URINE UROBILINOGEN NEGATIVE mg/dL (0.2-1.0)
[2018-02-23] MEDS: chlordiazePOXIDE HCL 25 MG CAPSULE PO SCH ×4 (05:44→22:22)
[2018-02-23] MEDS ORDERED: METHADONE HCL 10 MG TABLET (FOR DETOX USE ONLY) PO ONE (10:00)
[2018-02-23] MEDS: PRENATAL VITAMINS W/ FOLIC ACID TABLET (FP) PO SCH (10:09)
[2018-02-23] MEDS: cloNIDine HCL 0.1 MG TABLET PO SCH ×2 (10:10→22:22)
[2018-02-23] MEDS: NICOTINE 21 MG/24 HOURS TOPICAL PATCH TD SCH (10:10)
[2018-02-23 10:29] LABS: HEMATOCRIT 40.1 % (35.4-49); MCH 28.5 pg (25.7-33.7); MCHC 32.4 g/dl (32.0-35.9); MEAN CELL VOLUME 87.8 fl (80-96); MEAN PLT VOLUME 10.3 fl (7.5-11.1); PLATELET COUNT 242 K/MM3 (134-434); RBC 4.57 M/mm3 (4.00-5.60); RDW 15.2 % (11.9-15.9); WHITE BLOOD COUNT 7.2 K/mm3 (4.0-10.0)
[2018-02-23] MEDS ORDERED: FLU VACCINE QUAD 60 MCG/0.5 ML (MDV 18-19) IM ONE (12:00)
--- NOTE | 2018-02-23 13:00 | EKG ---
Test Reason : Blood Pressure : / mmHG Vent. Rate : 064 BPM Atrial Rate : 064 BPM P-R Int : 164 ms QRS Dur : 086 ms QT Int : 406 ms P-R-T Axes : 053 056 046 degrees QTc Int : 418 ms NORMAL SINUS RHYTHM NORMAL ECG Confirmed by MD FABIANA, DUDLEY ([id number]) on 02/23/2018 1:00:19 PM Referred By: Confirmed By:DUDLEY JUNG MD
--- NOTE | 2018-02-23 13:46 | PN ---
[facility] CIWA - CIWA Score Nausea/Vomitin Muscle Tremors: 4-Moderate,w/Arms Extend Anxiety: 4-Mod. Anxious/Guarded Agitation: 3 Paroxysmal Sweats: 3 Orientation: 0-Oriented Tacttile Disturbances: 0-None Auditory Disturbances: 0-None Visual Disturbances: 0-None Headache: 0-None Present CIWA-Ar Total Score: 17 [facility] COWS - Scale Resting Pulse: 1= AR 81-100 Sweatin= Chills/Flushing Restless Observation: 3= Extraneous Movement Pupil Size: 0= Normal to Room Light Bone or Joint Aches: 2= Severe Diffuse Aches Runny Nose/ Eye Tearin= Runny Nose/Eyes GI Upset > 30mins: 2= Nausea/Diarrhea Tremor Observation of Outstretched Hands: 2= Slight Tremor Visible Yawning Observation: 1= 1-2x During Session Anxiety or Irritability: 2=Irritable/Anxious Goose Flesh Skin: 0=Smooth Skin COWS Score: 16 [facility] Progress Note (SOAP) Subjective: Chills, sweat, N/V/D Objective: 02/23/18 13:44 Last Vital Signs Temp Pulse Resp BP Pulse Ox 96.3 F L 82 18 119/73 02/23/18 13:17 02/23/18 13:17 02/23/18 13:17 02/23/18 13:17 Laboratory Tests 02/22/18 02/23/18 02/23/18 22:22 07:30 07:30 WBC 7.2 RBC 4.57 Hgb 13.0 Hct 40.1 MCV 87.8 MCH 28.5 MCHC 32.4 RDW 15.2 Plt Count 242 MPV 10.3 Urine Color Yellow Urine Appearance Clear Urine pH 5.0 Ur Specific [place] 1.028 Urine Protein Negative Urine Glucose (UA) Negative Urine Ketones Trace H Urine Blood Negative Urine Nitrite Negative Urine Bilirubin Negative Urine Urobilinogen Negative Ur Leukocyte Esterase Negative RPR Titer Nonreactive Labs reviewed: CMP within normal limits Assessment: 02/23/18 13:46 Withdrawal symptoms Plan: Continue detox Encouraged PO water intake
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
[2018-02-23 16:11] LABS: ALBUMIN 3.1 g/dl (3.4-5.0); ALK PHOS 85 U/L (45-117); ANION GAP 6 MMOL/L (8-16); BILIRUBIN,TOTAL 0.2 mg/dL (0.2-1); BLOOD UREA NITROGEN 20 mg/dL (7-18); CALCIUM 8.1 mg/dL (8.5-10.1); CHLORIDE 108 mmol/L (98-107); CO2 29 mmol/L (21-32); CREATININE 0.9 mg/dL (0.55-1.3); GLUCOSE,RANDOM 77 mg/dL (74-106); POTASSIUM 4.5 mmol/L (3.5-5.1); SGOT/AST 27 U/L (15-37); SGPT/ALT 26 U/L (13-61); SODIUM 143 mmol/L (136-145); TOT PROT 6.6 g/dl (6.4-8.2)
[2018-02-23] MEDS ORDERED: diphenhydrAMINE HCL 25 MG CAPSULE (FP) PO ONE (20:35)
[2018-02-23] MEDS: CYCLOBENZAPRINE HCL 10 MG TABLET (FP) PO PRN (22:22)
[2018-02-23] MEDS: diphenhydrAMINE HCL 50 MG CAPSULE PO PRN (22:22)
[2018-02-23] MEDS: THIAMINE HCL 100 MG TABLET (FP) PO SCH (22:22)
[2018-02-24] MEDS: chlordiazePOXIDE HCL 25 MG CAPSULE PO SCH ×3 (05:11→16:50)
[2018-02-24] MEDS ORDERED: METHADONE HCL 5 MG TABLET (FOR DETOX USE ONLY) PO ONE (10:00)
[2018-02-24] MEDS: PRENATAL VITAMINS W/ FOLIC ACID TABLET (FP) PO SCH (10:11)
[2018-02-24] MEDS: cloNIDine HCL 0.1 MG TABLET PO SCH ×2 (10:11→22:21)
[2018-02-24] MEDS: NICOTINE 21 MG/24 HOURS TOPICAL PATCH TD SCH (10:12)
--- NOTE | 2018-02-24 12:33 | PN ---
[facility] CIWA - CIWA Score Nausea/Vomitin Muscle Tremors: 3 Anxiety: 3 Agitation: 3 Paroxysmal Sweats: 2 Orientation: 0-Oriented Tacttile Disturbances: 0-None Auditory Disturbances: 0-None Visual Disturbances: 0-None Headache: 1-Very Mild CIWA-Ar Total Score: 14 [facility] COWS - Scale Resting Pulse: 0= ME 80 or Below Sweatin= Chills/Flushing Restless Observation: 1= Difficult to Sit Still Pupil Size: 0= Normal to Room Light Bone or Joint Aches: 2= Severe Diffuse Aches Runny Nose/ Eye Tearin= Runny Nose/Eyes GI Upset > 30mins: 2= Nausea/Diarrhea Tremor Observation of Outstretched Hands: 2= Slight Tremor Visible Yawning Observation: 1= 1-2x During Session Anxiety or Irritability: 2=Irritable/Anxious Goose Flesh Skin: 0=Smooth Skin COWS Score: 13 S Progress Note (SOAP) Subjective: Chills, sweating, diarrhea Objective: 02/24/18 12:31 Last Vital Signs Temp Pulse Resp BP Pulse Ox 96.1 F L 68 20 105/68 02/24/18 09:23 02/24/18 09:23 02/24/18 09:23 02/24/18 09:23 Laboratory Tests 02/22/18 02/23/18 02/23/18 22:22 07:30 07:30 WBC 7.2 RBC 4.57 Hgb 13.0 Hct 40.1 MCV 87.8 MCH 28.5 MCHC 32.4 RDW 15.2 Plt Count 242 MPV 10.3 Sodium Potassium Chloride Carbon Dioxide Anion Gap BUN Creatinine Creat Clearance w eGFR Random Glucose Calcium Total Bilirubin AST ALT Alkaline Phosphatase Total Protein Albumin Urine Color Yellow Urine Appearance Clear Urine pH 5.0 Ur Specific [place] 1.028 Urine Protein Negative Urine Glucose (UA) Negative Urine Ketones Trace H Urine Blood Negative Urine Nitrite Negative Urine Bilirubin Negative Urine Urobilinogen Negative Ur Leukocyte Esterase Negative RPR Titer Nonreactive 02/23/18 08:00 WBC RBC Hgb Hct MCV MCH MCHC RDW Plt Count MPV Sodium 143 Potassium 4.5 Chloride 108 H Carbon Dioxide 29 Anion Gap 6 L BUN 20 H Creatinine 0.9 Creat Clearance w eGFR > 60 Random Glucose 77 Calcium 8.1 L Total Bilirubin 0.2 AST 27 ALT 26 Alkaline Phosphatase 85 Total Protein 6.6 Albumin 3.1 L Urine Color Urine Appearance Urine pH Ur Specific [place] Urine Protein Urine Glucose (UA) Urine Ketones Urine Blood Urine Nitrite Urine Bilirubin Urine Urobilinogen Ur Leukocyte Esterase RPR Titer Labs reviewed: bun 20 Assessment: 02/24/18 12:33 Withdrawal symptoms Noted with azotemia Plan: Continue detox Azotemia: encouraged PO water intake
[2018-02-24] MEDS ORDERED: diphenhydrAMINE HCL 25 MG CAPSULE (FP) PO ONE (20:50)
[2018-02-24] MEDS: THIAMINE HCL 100 MG TABLET (FP) PO SCH (22:20)
[2018-02-24] MEDS: chlordiazePOXIDE 5 MG CAPSULE PO SCH (22:20)
[2018-02-24] MEDS: diphenhydrAMINE HCL 50 MG CAPSULE PO PRN (22:21)
[2018-02-24] MEDS: CYCLOBENZAPRINE HCL 10 MG TABLET (FP) PO PRN (22:21)
[2018-02-25] MEDS: chlordiazePOXIDE 5 MG CAPSULE PO SCH ×3 (05:36→17:46)
[2018-02-25] MEDS ORDERED: METHADONE HCL 5 MG TABLET (FOR DETOX USE ONLY) PO ONE (10:00)
[2018-02-25] MEDS: PRENATAL VITAMINS W/ FOLIC ACID TABLET (FP) PO SCH (10:22)
[2018-02-25] MEDS: cloNIDine HCL 0.1 MG TABLET PO SCH ×2 (10:23→22:22)
[2018-02-25] MEDS: NICOTINE 21 MG/24 HOURS TOPICAL PATCH TD SCH (10:24)
--- NOTE | 2018-02-25 12:45 | PN ---
[facility] Progress Note (SOAP) Subjective: Chills, anxious Objective: 02/25/18 12:44 Last Vital Signs Temp Pulse Resp BP Pulse Ox 97.0 F L 80 18 102/55 L 02/25/18 10:01 02/25/18 10:01 02/25/18 10:01 02/25/18 10:01 Laboratory Tests 02/22/18 02/23/18 02/23/18 22:22 07:30 07:30 WBC 7.2 RBC 4.57 Hgb 13.0 Hct 40.1 MCV 87.8 MCH 28.5 MCHC 32.4 RDW 15.2 Plt Count 242 MPV 10.3 Sodium Potassium Chloride Carbon Dioxide Anion Gap BUN Creatinine Creat Clearance w eGFR Random Glucose Calcium Total Bilirubin AST ALT Alkaline Phosphatase Total Protein Albumin Urine Color Yellow Urine Appearance Clear Urine pH 5.0 Ur Specific [place] 1.028 Urine Protein Negative Urine Glucose (UA) Negative Urine Ketones Trace H Urine Blood Negative Urine Nitrite Negative Urine Bilirubin Negative Urine Urobilinogen Negative Ur Leukocyte Esterase Negative RPR Titer Nonreactive 02/23/18 08:00 WBC RBC Hgb Hct MCV MCH MCHC RDW Plt Count MPV Sodium 143 Potassium 4.5 Chloride 108 H Carbon Dioxide 29 Anion Gap 6 L BUN 20 H Creatinine 0.9 Creat Clearance w eGFR > 60 Random Glucose 77 Calcium 8.1 L Total Bilirubin 0.2 AST 27 ALT 26 Alkaline Phosphatase 85 Total Protein 6.6 Albumin 3.1 L Urine Color Urine Appearance Urine pH Ur Specific [place] Urine Protein Urine Glucose (UA) Urine Ketones Urine Blood Urine Nitrite Urine Bilirubin Urine Urobilinogen Ur Leukocyte Esterase RPR Titer Labs reviewed Assessment: 02/25/18 12:45 Withdrawal symptoms Plan: Continue detox Encouraged PO water intake
[2018-02-25] MEDS: MAG HYDROX/AL HYDROX/SIMETH 30 ML UNIT-DOSE CUP PO PRN (19:38)
[2018-02-25] MEDS: CYCLOBENZAPRINE HCL 10 MG TABLET (FP) PO PRN (19:38)
[2018-02-25] MEDS: THIAMINE HCL 100 MG TABLET (FP) PO SCH (22:21)
[2018-02-25] MEDS: chlordiazePOXIDE HCL 10 MG CAPSULE PO SCH (22:22)
[2018-02-25] MEDS: diphenhydrAMINE HCL 50 MG CAPSULE PO PRN (22:23)
[2018-02-26] MEDS: MAG HYDROX/AL HYDROX/SIMETH 30 ML UNIT-DOSE CUP PO PRN (01:53)
[2018-02-26] MEDS: chlordiazePOXIDE HCL 10 MG CAPSULE PO SCH ×3 (05:14→17:31)
[2018-02-26] MEDS ORDERED: BENZOCAINE/MENTH/CETYLPYRD CL 1 EACH LOZENGE MM PRN (09:19)
[2018-02-26] MEDS ORDERED: METHADONE HCL 10 MG TABLET (FOR DETOX USE ONLY) PO ONE (10:00)
[2018-02-26] MEDS: NICOTINE 21 MG/24 HOURS TOPICAL PATCH TD SCH (10:05)
[2018-02-26] MEDS: cloNIDine HCL 0.1 MG TABLET PO SCH ×2 (10:05→22:26)
[2018-02-26] MEDS: PRENATAL VITAMINS W/ FOLIC ACID TABLET (FP) PO SCH (10:05)
--- NOTE | 2018-02-26 13:18 | PN ---
[facility] Progress Note (SOAP) Subjective: Interrupted sleep, sweating; throat hurting since this morning (wants lozenges) Objective: 02/26/18 13:18 Last Vital Signs Temp Pulse Resp BP Pulse Ox 97.7 F 84 18 105/67 02/26/18 09:42 02/26/18 09:42 02/26/18 09:42 02/26/18 09:42 Laboratory Tests 02/22/18 02/23/18 02/23/18 22:22 07:30 07:30 WBC 7.2 RBC 4.57 Hgb 13.0 Hct 40.1 MCV 87.8 MCH 28.5 MCHC 32.4 RDW 15.2 Plt Count 242 MPV 10.3 Sodium Potassium Chloride Carbon Dioxide Anion Gap BUN Creatinine Creat Clearance w eGFR Random Glucose Calcium Total Bilirubin AST ALT Alkaline Phosphatase Total Protein Albumin Urine Color Yellow Urine Appearance Clear Urine pH 5.0 Ur Specific [place] 1.028 Urine Protein Negative Urine Glucose (UA) Negative Urine Ketones Trace H Urine Blood Negative Urine Nitrite Negative Urine Bilirubin Negative Urine Urobilinogen Negative Ur Leukocyte Esterase Negative RPR Titer Nonreactive 02/23/18 08:00 WBC RBC Hgb Hct MCV MCH MCHC RDW Plt Count MPV Sodium 143 Potassium 4.5 Chloride 108 H Carbon Dioxide 29 Anion Gap 6 L BUN 20 H Creatinine 0.9 Creat Clearance w eGFR > 60 Random Glucose 77 Calcium 8.1 L Total Bilirubin 0.2 AST 27 ALT 26 Alkaline Phosphatase 85 Total Protein 6.6 Albumin 3.1 L Urine Color Urine Appearance Urine pH Ur Specific [place] Urine Protein Urine Glucose (UA) Urine Ketones Urine Blood Urine Nitrite Urine Bilirubin Urine Urobilinogen Ur Leukocyte Esterase RPR Titer Labs reviewed: bun 20 Assessment: 02/26/18 13:21 Withdrawal symptoms Noted with azotemia Plan: Continue detox Azotemia: encouraged PO water intake
[2018-02-26] MEDS: THIAMINE HCL 100 MG TABLET (FP) PO SCH (22:26)
[2018-02-26] MEDS: diphenhydrAMINE HCL 50 MG CAPSULE PO PRN (22:27)
[2018-02-27] MEDS ORDERED: METHADONE HCL 5 MG TABLET (FOR DETOX USE ONLY) PO ONE (06:00)
[2018-02-27 06:22] VITALS: BP 111/63; PULSE 63; TEMP 97.8
--- NOTE | 2018-02-27 09:17 | DS ---
[facility] Detox Discharge Summary Admission Date: 02/22/18 Discharge Date: 02/27/18 - History Present History: Alcohol Dependence, Opioid Dependence Additional Comments: Patient to follow up with primary care provider in 1 -2 weeks. Pertinent Past History: Vital Signs Temperature 97.8 F 02/27/18 06:21 Pulse Rate 63 02/27/18 06:21 Respiratory Rate 18 02/27/18 06:21 Blood Pressure 111/63 02/27/18 06:21 O2 Sat by Pulse Oximetry (%) Laboratory Last Values WBC 7.2 K/mm3 (4.0-10.0) 02/23/18 07:30 RBC 4.57 M/mm3 (4.00-5.60) 02/23/18 07:30 Hgb 13.0 GM/dL (11.7-16.9) 02/23/18 07:30 Hct 40.1 % (35.4-49) 02/23/18 07:30 MCV 87.8 fl (80-96) 02/23/18 07:30 MCH 28.5 pg (25.7-33.7) 02/23/18 07:30 MCHC 32.4 g/dl (32.0-35.9) 02/23/18 07:30 RDW 15.2 % (11.9-15.9) 02/23/18 07:30 Plt Count 242 K/MM3 (134-434) 02/23/18 07:30 MPV 10.3 fl (7.5-11.1) 02/23/18 07:30 Sodium 143 mmol/L (136-145) 02/23/18 08:00 Potassium 4.5 mmol/L (3.5-5.1) 02/23/18 08:00 Chloride 108 mmol/L (98-107) H 02/23/18 08:00 Carbon Dioxide 29 mmol/L (21-32) 02/23/18 08:00 Anion Gap 6 MMOL/L (8-16) L 02/23/18 08:00 BUN 20 mg/dL (7-18) H 02/23/18 08:00 Creatinine 0.9 mg/dL (0.55-1.3) 02/23/18 08:00 Creat Clearance w eGFR > 60 (>60) 02/23/18 08:00 Random Glucose 77 mg/dL (74-106) 02/23/18 08:00 Calcium 8.1 mg/dL (8.5-10.1) L 02/23/18 08:00 Total Bilirubin 0.2 mg/dL (0.2-1) 02/23/18 08:00 AST 27 U/L (15-37) 02/23/18 08:00 ALT 26 U/L (13-61) 02/23/18 08:00 Alkaline Phosphatase 85 U/L (45-117) 02/23/18 08:00 Total Protein 6.6 g/dl (6.4-8.2) 02/23/18 08:00 Albumin 3.1 g/dl (3.4-5.0) L 02/23/18 08:00 Urine Color Yellow 02/22/18 22:22 Urine Appearance Clear 02/22/18 22: Urine pH 5.0 (5.0-8.0) 02/22/18 22:22 Ur Specific [place] 1.028 (1.010-1.035) 02/22/18 22:22 Urine Protein Negative (NEGATIVE) 02/22/18 22:22 Urine Glucose (UA) Negative (NEGATIVE) 02/22/18 22:22 Urine Ketones Trace (NEGATIVE) H 02/22/18 22:22 Urine Blood Negative (NEGATIVE) 02/22/18 22:22 Urine Nitrite Negative (NEGATIVE) 02/22/18 22:22 Urine Bilirubin Negative (<2.0 mg/dL) 02/22/18 22: Urine Urobilinogen Negative mg/dL (0.2-1.0) 02/22/18 22:22 Ur Leukocyte Esterase Negative (NEGATIVE) 02/22/18 22:22 RPR Titer Nonreactive (NONREACTIVE) 02/23/18 07:30 - Physical Exam Results Vital Signs: Vital Signs Temperature 97.8 F 02/27/18 06:21 Pulse Rate 63 02/27/18 06:21 Respiratory Rate 18 02/27/18 06:21 Blood Pressure 111/63 02/27/18 06:21 O2 Sat by Pulse Oximetry (%) - Treatment Hospital Course: Detox Protocol Followed, Detoxed Safely, Responded well, Discharged Condition Good, Rehab Referral Accepted Patient has Accepted a Rehab Referral to: [facility] - Medication Discharge Medications: Ambulatory Orders NK [No Known Home Medication] 02/22/18 - Diagnosis (1) Nicotine dependence Current Visit: Yes Status: Acute Qualifiers: Nicotine product type: cigarettes Substance use status: unspecified nicotine-induced disorder Qualified Code(s): F17.219 - Nicotine dependence, cigarettes, with unspecified nicotine-induced disorders (2) Non-compliant patient Current Visit: Yes Status: Acute (3) Opioid dependence with withdrawal Current Visit: Yes Status: Acute (4) Cocaine dependence, uncomplicated Current Visit: Yes Status: Chronic - AMA Did Patient Leave Against Medical Advice: No
[2018-02-27] MEDS: PRENATAL VITAMINS W/ FOLIC ACID TABLET (FP) PO SCH (10:06)
[2018-02-27] MEDS: NICOTINE 21 MG/24 HOURS TOPICAL PATCH TD SCH (10:07)
[2018-02-27] MEDS: cloNIDine HCL 0.1 MG TABLET PO SCH (10:07)
== END 2018-02-27 13:00 | disposition home or self-care (01) | DRG 773 ==
LOC: YASAS 11:32 → Y3N 15:18
PROC: HZ2ZZZZ Detoxification Services for Substance Abuse Treatment (ICD-10-PCS; principal; 2018-02-22)
DX: F11.23 Opioid dependence with withdrawal (principal); F10.220 Alcohol dependence with intoxication, uncomplicated; F17.219 Nicotine dependence, cigarettes, with unspecified nicotine-induced disorders; F19.24 Other psychoactive substance dependence with psychoactive substance-induced mood disorder; F31.9 Bipolar disorder, unspecified; G47.00 Insomnia, unspecified; R79.89 Other specified abnormal findings of blood chemistry; R63.4 Abnormal weight loss; Z68.23 Body mass index [BMI] 23.0-23.9, adult; Z86.59 Personal history of other mental and behavioral disorders; Z91.19 Patient's noncompliance with other medical treatment and regimen
CPT/HCPCS: 36415; 80053; 81003; 85027; 86593; 93005; 93010; J0735

== ENCOUNTER 2018-12-03 12:24 | Inpatient (IN) | payer OTHER ==
[2018-12-03 14:48] VITALS: BMI 26.6
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
[2018-12-03] MEDS ORDERED: cloNIDine HCL 0.1 MG TABLET PO PRN (18:01)
[2018-12-03] MEDS ORDERED: ACETAMINOPHEN 325 MG TABLET (FP) PO PRN ×2 (18:01)
[2018-12-03] MEDS ORDERED: guaiFENesin 200 MG/10 ML 10 ML UNIT-DOSE CUPS PO PRN (18:01)
[2018-12-03] MEDS ORDERED: P-EPHED 60MG/TRIPROLIDI 2.5MG TABLET PO PRN (18:01)
[2018-12-03] MEDS ORDERED: MAGNESIUM HYDROX 2400MG/30ML ORAL SUSPENSION 30 ML CUP PO PRN (18:01)
[2018-12-03] MEDS ORDERED: MAGNESIUM CITRATE 300 ML BOTTLE PO PRN (18:01)
[2018-12-03] MEDS ORDERED: IBUPROFEN 400 MG TABLET (FP) PO PRN (18:01)
[2018-12-03] MEDS ORDERED: ONDANSETRON *ODT* 4 MG TABLET SL PRN (18:01)
[2018-12-03] MEDS ORDERED: METHOCARBAMOL 500 MG TABLET PO PRN (18:01)
[2018-12-03] MEDS ORDERED: DICYCLOMINE HCL 10 MG CAPSULE PO PRN (18:01)
[2018-12-03] MEDS ORDERED: METHADONE HCL 10 MG TABLET (FOR DETOX USE ONLY) PO ONE (18:01)
[2018-12-03] MEDS ORDERED: MAG HYDROX/AL HYDROX/SIMETH 30 ML UNIT-DOSE CUP PO PRN (18:01)
[2018-12-03] MEDS ORDERED: BISMUTH SUBSALICYLATE 524 MG/30 ML UD PO PRN (18:01)
[2018-12-03] MEDS ORDERED: NICOTINE POLACRILEX 2 MG GUM BUC PRN (18:01)
[2018-12-03] MEDS: MELATONIN 5 MG TABLETS PO PRN (22:01)
[2018-12-03] MEDS: THIAMINE HCL 100 MG TABLET (FP) PO SCH (22:01)
[2018-12-04] MEDS ORDERED: METHADONE HCL 5 MG TABLET (FOR DETOX USE ONLY) ONE (09:27)
[2018-12-04] MEDS ORDERED: METHADONE HCL 10 MG TABLET (FOR DETOX USE ONLY) ONE (09:27)
[2018-12-04] MEDS ORDERED: METHADONE (DETOX) 20 MG, METHADONE (DETOX) 5 MG PO ONE (10:00)
[2018-12-04] MEDS: PRENATAL VITAMINS W/ FOLIC ACID TABLET (FP) PO SCH (10:05)
[2018-12-04] MEDS: NICOTINE 21 MG/24 HOURS TOPICAL PATCH TD SCH (10:06)
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
--- NOTE | 2018-12-04 12:12 | PN ---
BHS COWS - Scale Resting Pulse: 0= [place] 80 or Below Sweatin= Chills/Flushing Restless Observation: 1= Difficult to Sit Still Pupil Size: 0= Normal to Room Light Bone or Joint Aches: 2= Severe Diffuse Aches Runny Nose/ Eye Tearin= Nasal Congestion GI Upset > 30mins: 0= None Tremor Observation of Outstretched Hands: 0= None Yawning Observation: 1= 1-2x During Session Anxiety or Irritability: 2=Irritable/Anxious Goose Flesh Skin: 3=Piloerection COWS Score: 11 BHS Progress Note (SOAP) Subjective: Anxious, Body Aches, Sweating, Poor Appetite. Objective: PATIENT A & O X 3, OBSERVED AMBULATING ON UNIT UNASSISTED. IN NO ACUTE DISTRESS. 12/04/18 12:13 Vital Signs Temperature 98.0 F 12/04/18 09:22 Pulse Rate 64 12/04/18 09:22 Respiratory Rate 18 12/04/18 09:22 Blood Pressure 104/61 12/04/18 09:22 O2 Sat by Pulse Oximetry (%) PATIENT REFUSED TO HAVE DETOX ADMISSION LABS DRAWN EARLIER TODAY. PATIENT AGREES TO ALLOW FOR THEM TO BE DRAWN TOMORROW AM. 12/04/18 12:14 Assessment: 12/04/18 12:14 WITHDRAWAL SYMPTOMS. Plan: CONTINUE DETOX. ENSURE PO FOR CALORIC SUPPLEMENTATION.
[2018-12-04] MEDS: hydrOXYzine PAMOATE 25 MG CAPSULE (FP) PO PRN (22:02)
[2018-12-04] MEDS: MELATONIN 5 MG TABLETS PO PRN (22:02)
[2018-12-04] MEDS: THIAMINE HCL 100 MG TABLET (FP) PO SCH (22:02)
--- NOTE | 2018-12-05 09:41 | PN ---
BHS COWS - Scale Resting Pulse: 0= [place] 80 or Below Sweatin= Chills/Flushing Restless Observation: 0= Sits Still Pupil Size: 0= Normal to Room Light Bone or Joint Aches: 1= Mild Discomfort Runny Nose/ Eye Tearin= Nasal Congestion GI Upset > 30mins: 1= Stomach Cramp Tremor Observation of Outstretched Hands: 1= Tremor [place], Not Seen Yawning Observation: 2= >3x During Session Anxiety or Irritability: 2=Irritable/Anxious Goose Flesh Skin: 0=Smooth Skin COWS Score: 9 BHS Progress Note (SOAP) Subjective: 38 years old male admitted on 12/03/18 for opiate withdrawal sx management doing well with methadone detox regimen tolerate food and fluid well resting on bed discuss medication assisted treatment Objective: 12/05/18 09:40 Vital Signs Temperature 98.1 F 12/05/18 09:18 Pulse Rate 65 12/05/18 09:18 Respiratory Rate 18 12/05/18 09:18 Blood Pressure 115/75 12/05/18 09:18 O2 Sat by Pulse Oximetry (%) 12/05/18 09:41 lab pending Assessment: 12/05/18 09:41 opiate withdrawal sx Plan: continue opiate detox
[2018-12-05] MEDS ORDERED: METHADONE HCL 10 MG TABLET (FOR DETOX USE ONLY) PO ONE (10:00)
[2018-12-05] MEDS: PRENATAL VITAMINS W/ FOLIC ACID TABLET (FP) PO SCH (10:06)
[2018-12-05] MEDS: NICOTINE 21 MG/24 HOURS TOPICAL PATCH TD SCH (10:07)
[2018-12-05] MEDS: HYDROCORTISONE 1% TOPICAL OINT 30 GM TUBE TP PRN (10:07)
[2018-12-05] MEDS: MENTHOL/PHENOL 1 EACH UD MM PRN (10:08)
[2018-12-05 11:34] LABS: BASO % 0.9 % (0-2.0); EOS % 4.4 % (0-4.5); HEMATOCRIT 38.5 % (35.4-49); HEMOGLOBIN 12.9 GM/dL (11.7-16.9); LYMPH % 45.5 % (8-40); MCH 29.9 pg (25.7-33.7); MCHC 33.5 g/dl (32.0-35.9); MEAN CELL VOLUME 89.2 fl (80-96); MEAN PLT VOLUME 10.3 fl (7.5-11.1); MONO % 14.1 % (3.8-10.2); NEUT % 35.1 % (42.8-82.8); PLATELET COUNT 310 K/MM3 (134-434); RBC 4.31 M/mm3 (4.00-5.60); RDW 14.5 % (11.9-15.9); WHITE BLOOD COUNT 3.7 K/mm3 (4.0-10.0)
[2018-12-05 11:35] LABS: BILIRUBIN,TOTAL 0.4 mg/dL (0.2-1); BLOOD UREA NITROGEN 12.5 mg/dL (7-18); CALCIUM 8.4 mg/dL (8.5-10.1); CREATININE 0.9 mg/dL (0.55-1.3); POTASSIUM 4.4 mmol/L (3.5-5.1); TOT PROT 6.6 g/dl (6.4-8.2)
[2018-12-05] MEDS: THIAMINE HCL 100 MG TABLET (FP) PO SCH (22:05)
[2018-12-05] MEDS: MELATONIN 5 MG TABLETS PO PRN (22:05)
[2018-12-05] MEDS: hydrOXYzine PAMOATE 25 MG CAPSULE (FP) PO PRN (22:05)
[2018-12-06] MEDS ORDERED: METHADONE HCL 10 MG TABLET (FOR DETOX USE ONLY) ONE (08:52)
[2018-12-06] MEDS ORDERED: METHADONE HCL 5 MG TABLET (FOR DETOX USE ONLY) ONE (08:53)
--- NOTE | 2018-12-06 09:06 | PN ---
BHS COWS - Scale Resting Pulse: 0= [place] 80 or Below Sweatin= Chills/Flushing Restless Observation: 0= Sits Still Pupil Size: 1= Pupils >than Normal Bone or Joint Aches: 1= Mild Discomfort Runny Nose/ Eye Tearin= Nasal Congestion GI Upset > 30mins: 1= Stomach Cramp Tremor Observation of Outstretched Hands: 1= Tremor [place], Not Seen Yawning Observation: 0= None Anxiety or Irritability: 1=Feels Anxious/Irritable Goose Flesh Skin: 0=Smooth Skin COWS Score: 7 BHS Progress Note (SOAP) Subjective: long history of eczema treated with triamcinolone both elbows rough hyperpigmented skin noted white scally peeling surface no bleeding dry eczema triamcinolone Objective: 12/06/18 09:04 Vital Signs Temperature 97.8 F 12/06/18 09:03 Pulse Rate 68 12/06/18 09:03 Respiratory Rate 18 12/06/18 09:03 Blood Pressure 132/82 12/06/18 09:03 O2 Sat by Pulse Oximetry (%) Laboratory Last Values WBC 3.7 K/mm3 (4.0-10.0) L 12/05/18 08:00 RBC 4.31 M/mm3 (4.00-5.60) 12/05/18 08:00 Hgb 12.9 GM/dL (11.7-16.9) 12/05/18 08:00 Hct 38.5 % (35.4-49) 12/05/18 08:00 MCV 89.2 fl (80-96) 12/05/18 08:00 MCH 29.9 pg (25.7-33.7) 12/05/18 08:00 MCHC 33.5 g/dl (32.0-35.9) 12/05/18 08:00 RDW 14.5 % (11.9-15.9) 12/05/18 08:00 Plt Count 310 K/MM3 (134-434) D 12/05/18 08:00 MPV 10.3 fl (7.5-11.1) 12/05/18 08:00 Absolute Neuts (auto) 1.3 K/mm3 (1.5-8.0) L 12/05/18 08:00 Neutrophils % 35.1 % (42.8-82.8) L D 12/05/18 08:00 Lymphocytes % 45.5 % (8-40) H D 12/05/18 08:00 Monocytes % 14.1 % (3.8-10.2) H 12/05/18 08:00 Eosinophils % 4.4 % (0-4.5) D 12/05/18 08:00 Basophils % 0.9 % (0-2.0) 12/05/18 08:00 Nucleated RBC % 0 % (0-0) 12/05/18 08:00 Sodium 139 mmol/L (136-145) 12/05/18 08:00 Potassium 4.4 mmol/L (3.5-5.1) 12/05/18 08:00 Chloride 105 mmol/L (98-107) 12/05/18 08:00 Carbon Dioxide 30 mmol/L (21-32) 12/05/18 08:00 Anion Gap 4 MMOL/L (8-16) L 12/05/18 08:00 BUN 12.5 mg/dL (7-18) 12/05/18 08:00 Creatinine 0.9 mg/dL (0.55-1.3) 12/05/18 08:00 Est GFR (CKD-EPI)AfAm 124.26 12/05/18 08:00 Est GFR (CKD-EPI)NonAf 107.21 12/05/18 08:00 Random Glucose 73 mg/dL (74-106) L 12/05/18 08:00 Calcium 8.4 mg/dL (8.5-10.1) L 12/05/18 08:00 Total Bilirubin 0.4 mg/dL (0.2-1) 12/05/18 08:00 AST 524 U/L (15-37) H 12/05/18 08:00 ALT 850 U/L (13-61) H 12/05/18 08:00 Alkaline Phosphatase 88 U/L (45-117) 12/05/18 08:00 Total Protein 6.6 g/dl (6.4-8.2) 12/05/18 08:00 Albumin 3.0 g/dl (3.4-5.0) L 12/05/18 08:00 lab noted ast elevation repeat ast Assessment: 12/06/18 09:05 opiate withdrawal sx Plan: continue opiate detox
[2018-12-06] MEDS ORDERED: METHADONE (DETOX) 10 MG, METHADONE (DETOX) 5 MG PO ONE (10:00)
[2018-12-06] MEDS: NICOTINE 21 MG/24 HOURS TOPICAL PATCH TD SCH (10:18)
[2018-12-06] MEDS: PRENATAL VITAMINS W/ FOLIC ACID TABLET (FP) PO SCH (10:18)
[2018-12-06] MEDS: MENTHOL/PHENOL 1 EACH UD MM PRN ×2 (10:20→22:06)
[2018-12-06] MEDS: HYDROCORTISONE 1% TOPICAL OINT 30 GM TUBE TP PRN (10:20)
[2018-12-06 16:50] LABS: PH,URINE 8.5 (5.0-8.0); URINE APPEARANCE CLEAR; URINE BILIRUBIN NEGATIVE (NEGATIVE); URINE COLOR YELLOW; URINE GLUCOSE (UA) NEGATIVE (NEGATIVE); URINE KETONE NEGATIVE (NEGATIVE); URINE LEUK ESTERASE NEGATIVE (NEGATIVE); URINE NITRITE NEGATIVE (NEGATIVE); URINE PROTEIN NEGATIVE (NEGATIVE)
[2018-12-06] MEDS: THIAMINE HCL 100 MG TABLET (FP) PO SCH (22:03)
[2018-12-06] MEDS: hydrOXYzine PAMOATE 25 MG CAPSULE (FP) PO PRN (22:04)
[2018-12-06] MEDS: MELATONIN 5 MG TABLETS PO PRN (22:04)
[2018-12-07] MEDS ORDERED: METHADONE HCL 10 MG TABLET (FOR DETOX USE ONLY) PO ONE (10:00)
[2018-12-07] MEDS: PRENATAL VITAMINS W/ FOLIC ACID TABLET (FP) PO SCH (10:11)
[2018-12-07] MEDS: MENTHOL/PHENOL 1 EACH UD MM PRN (10:12)
[2018-12-07] MEDS: NICOTINE 21 MG/24 HOURS TOPICAL PATCH TD SCH (10:12)
--- NOTE | 2018-12-07 15:12 | PN ---
BHS COWS - Scale Resting Pulse: 0= [place] 80 or Below Sweatin= Chills/Flushing Restless Observation: 0= Sits Still Pupil Size: 0= Normal to Room Light Bone or Joint Aches: 1= Mild Discomfort Runny Nose/ Eye Tearin= None GI Upset > 30mins: 0= None Tremor Observation of Outstretched Hands: 1= Tremor [place], Not Seen Yawning Observation: 0= None Anxiety or Irritability: 1=Feels Anxious/Irritable Goose Flesh Skin: 0=Smooth Skin COWS Score: 4 BHS Progress Note (SOAP) Subjective: feeling better today less body ache mild tremor Objective: 12/07/18 15:15 Vital Signs Temperature 97.2 F L 12/07/18 13:43 Pulse Rate 61 12/07/18 13:43 Respiratory Rate 18 12/07/18 13:43 Blood Pressure 124/78 12/07/18 13:43 O2 Sat by Pulse Oximetry (%) Laboratory Last Values WBC 3.7 K/mm3 (4.0-10.0) L 12/05/18 08:00 RBC 4.31 M/mm3 (4.00-5.60) 12/05/18 08:00 Hgb 12.9 GM/dL (11.7-16.9) 12/05/18 08:00 Hct 38.5 % (35.4-49) 12/05/18 08:00 MCV 89.2 fl (80-96) 12/05/18 08:00 MCH 29.9 pg (25.7-33.7) 12/05/18 08:00 MCHC 33.5 g/dl (32.0-35.9) 12/05/18 08:00 RDW 14.5 % (11.9-15.9) 12/05/18 08:00 Plt Count 310 K/MM3 (134-434) D 12/05/18 08:00 MPV 10.3 fl (7.5-11.1) 12/05/18 08:00 Absolute Neuts (auto) 1.3 K/mm3 (1.5-8.0) L 12/05/18 08:00 Neutrophils % 35.1 % (42.8-82.8) L D 12/05/18 08:00 Lymphocytes % 45.5 % (8-40) H D 12/05/18 08:00 Monocytes % 14.1 % (3.8-10.2) H 12/05/18 08:00 Eosinophils % 4.4 % (0-4.5) D 12/05/18 08:00 Basophils % 0.9 % (0-2.0) 12/05/18 08:00 Nucleated RBC % 0 % (0-0) 12/05/18 08:00 Sodium 139 mmol/L (136-145) 12/05/18 08:00 Potassium 4.4 mmol/L (3.5-5.1) 12/05/18 08:00 Chloride 105 mmol/L (98-107) 12/05/18 08:00 Carbon Dioxide 30 mmol/L (21-32) 12/05/18 08:00 Anion Gap 4 MMOL/L (8-16) L 12/05/18 08:00 BUN 12.5 mg/dL (7-18) 12/05/18 08:00 Creatinine 0.9 mg/dL (0.55-1.3) 12/05/18 08:00 Est GFR (CKD-EPI)AfAm 124.26 12/05/18 08:00 Est GFR (CKD-EPI)NonAf 107.21 12/05/18 08:00 Random Glucose 73 mg/dL (74-106) L 12/05/18 08:00 Calcium 8.4 mg/dL (8.5-10.1) L 12/05/18 08:00 Total Bilirubin 0.4 mg/dL (0.2-1) 12/05/18 08:00 AST 637 U/L (15-37) H 12/07/18 07:00 ALT 850 U/L (13-61) H 12/05/18 08:00 Alkaline Phosphatase 88 U/L (45-117) 12/05/18 08:00 Total Protein 6.6 g/dl (6.4-8.2) 12/05/18 08:00 Albumin 3.0 g/dl (3.4-5.0) L 12/05/18 08:00 Urine Color Yellow 12/06/18 11:25 Urine Appearance Clear 12/06/18 11:25 Urine pH 8.5 (5.0-8.0) H D 12/06/18 11:25 Ur Specific [place] 1.017 (1.010-1.035) 12/06/18 11:25 Urine Protein Negative (NEGATIVE) 12/06/18 11:25 Urine Glucose (UA) Negative (NEGATIVE) 12/06/18 11:25 Urine Ketones Negative (NEGATIVE) 12/06/18 11:25 Urine Blood Negative (NEGATIVE) 12/06/18 11:25 Urine Nitrite Negative (NEGATIVE) 12/06/18 11:25 Urine Bilirubin Negative (NEGATIVE) 12/06/18 11:25 Urine Urobilinogen 1.0 mg/dL (0.2-1.0) 12/06/18 11:25 Ur Leukocyte Esterase Negative (NEGATIVE) 12/06/18 11:25 lab noted ast elevation 12/07/18 15:16 hep c negative in 2017 encourage the patient follow up with primary care provider for elevated liver enzyme and hepatitis c testing 12/07/18 15:19 Assessment: 12/07/18 15:20 opiate withdrawal sx Plan: continue opiate detox
--- NOTE | 2018-12-07 16:05 | PN ---
Ryan Progress Note Note: patient did not want to complete treatment,had elevated liver enzyme Laboratory Results - last 24 hr 12/06/18 12/07/18 11:25 07:00 AST 637 H Urine Color Yellow Urine Appearance Clear Urine pH 8.5 H D Ur Specific [place] 1.017 Urine Protein Negative Urine Glucose (UA) Negative Urine Ketones Negative Urine Blood Negative Urine Nitrite Negative Urine Bilirubin Negative Urine Urobilinogen 1.0 Ur Leukocyte Esterase Negative need repeat ast in am all attempts to convince patient to stay with no avail patient sige release ama
--- NOTE | 2018-12-07 16:09 | DS ---
[facility] Detox Discharge Summary Admission Date: 12/03/18 Discharge Date: 12/07/18 - History Present History: Cocaine Dependence, Opioid Dependence Additional Comments: patient signed release AMA Pertinent Past History: IVDU - Physical Exam Results Vital Signs: Vital Signs Temperature 97.2 F L 12/07/18 13:43 Pulse Rate 61 12/07/18 13:43 Respiratory Rate 18 12/07/18 13:43 Blood Pressure 124/78 12/07/18 13:43 O2 Sat by Pulse Oximetry (%) Pertinent Admission Physical Exam Findings: withdrawal signs and symptom Laboratory Last Values WBC 3.7 K/mm3 (4.0-10.0) L 12/05/18 08:00 RBC 4.31 M/mm3 (4.00-5.60) 12/05/18 08:00 Hgb 12.9 GM/dL (11.7-16.9) 12/05/18 08:00 Hct 38.5 % (35.4-49) 12/05/18 08:00 MCV 89.2 fl (80-96) 12/05/18 08:00 MCH 29.9 pg (25.7-33.7) 12/05/18 08:00 MCHC 33.5 g/dl (32.0-35.9) 12/05/18 08:00 RDW 14.5 % (11.9-15.9) 12/05/18 08:00 Plt Count 310 K/MM3 (134-434) D 12/05/18 08:00 MPV 10.3 fl (7.5-11.1) 12/05/18 08:00 Absolute Neuts (auto) 1.3 K/mm3 (1.5-8.0) L 12/05/18 08:00 Neutrophils % 35.1 % (42.8-82.8) L D 12/05/18 08:00 Lymphocytes % 45.5 % (8-40) H D 12/05/18 08:00 Monocytes % 14.1 % (3.8-10.2) H 12/05/18 08:00 Eosinophils % 4.4 % (0-4.5) D 12/05/18 08:00 Basophils % 0.9 % (0-2.0) 12/05/18 08:00 Nucleated RBC % 0 % (0-0) 12/05/18 08:00 Sodium 139 mmol/L (136-145) 12/05/18 08:00 Potassium 4.4 mmol/L (3.5-5.1) 12/05/18 08:00 Chloride 105 mmol/L (98-107) 12/05/18 08:00 Carbon Dioxide 30 mmol/L (21-32) 12/05/18 08:00 Anion Gap 4 MMOL/L (8-16) L 12/05/18 08:00 BUN 12.5 mg/dL (7-18) 12/05/18 08:00 Creatinine 0.9 mg/dL (0.55-1.3) 12/05/18 08:00 Est GFR (CKD-EPI)AfAm 124.26 12/05/18 08:00 Est GFR (CKD-EPI)NonAf 107.21 12/05/18 08:00 Random Glucose 73 mg/dL (74-106) L 12/05/18 08:00 Calcium 8.4 mg/dL (8.5-10.1) L 12/05/18 08:00 Total Bilirubin 0.4 mg/dL (0.2-1) 12/05/18 08:00 AST 637 U/L (15-37) H 12/07/18 07:00 ALT 850 U/L (13-61) H 12/05/18 08:00 Alkaline Phosphatase 88 U/L (45-117) 12/05/18 08:00 Total Protein 6.6 g/dl (6.4-8.2) 12/05/18 08:00 Albumin 3.0 g/dl (3.4-5.0) L 12/05/18 08:00 Urine Color Yellow 12/06/18 11:25 Urine Appearance Clear 12/06/18 11:25 Urine pH 8.5 (5.0-8.0) H D 12/06/18 11:25 Ur Specific [place] 1.017 (1.010-1.035) 12/06/18 11:25 Urine Protein Negative (NEGATIVE) 12/06/18 11:25 Urine Glucose (UA) Negative (NEGATIVE) 12/06/18 11:25 Urine Ketones Negative (NEGATIVE) 12/06/18 11:25 Urine Blood Negative (NEGATIVE) 12/06/18 11:25 Urine Nitrite Negative (NEGATIVE) 12/06/18 11:25 Urine Bilirubin Negative (NEGATIVE) 12/06/18 11:25 Urine Urobilinogen 1.0 mg/dL (0.2-1.0) 12/06/18 11:25 Ur Leukocyte Esterase Negative (NEGATIVE) 12/06/18 11:25 Vital Signs Temperature 97.2 F L 12/07/18 13:43 Pulse Rate 61 12/07/18 13:43 Respiratory Rate 18 12/07/18 13:43 Blood Pressure 124/78 12/07/18 13:43 O2 Sat by Pulse Oximetry (%) - Medication Discharge Medications: Ambulatory Orders NK [No Known Home Medication] 02/22/18 - Diagnosis (1) Opioid dependence with withdrawal Current Visit: Yes Status: Acute (2) IVDU (intravenous drug user) Current Visit: Yes Status: Acute (3) Cocaine dependence Current Visit: Yes Status: Chronic Qualifiers: Substance use status: with unspecified cocaine-induced disorder Qualified Code(s): F14.29 - Cocaine dependence with unspecified cocaine-induced disorder (4) History of schizophrenia Current Visit: Yes Status: Chronic (5) Nicotine dependence Current Visit: Yes Status: Chronic Qualifiers: Nicotine product type: cigarettes Substance use status: unspecified nicotine-induced disorder Qualified Code(s): F17.219 - Nicotine dependence, cigarettes, with unspecified nicotine-induced disorders - AMA Did Patient Leave Against Medical Advice: Yes
[2018-12-07 17:12] VITALS: BP 126/73; PULSE 74; TEMP 97.8
[2018-12-08] MEDS ORDERED: METHADONE HCL 5 MG TABLET (FOR DETOX USE ONLY) PO ONE (06:00)
== END 2018-12-07 16:34 | disposition left against medical advice (07) | DRG 770 ==
LOC: YASAS 12:24 → Y3N 18:23
PROVIDERS: ADMIT Surgery; ATTEND Surgery
PROC: HZ2ZZZZ Detoxification Services for Substance Abuse Treatment (ICD-10-PCS; principal; 2018-12-03)
DX: F11.23 Opioid dependence with withdrawal (principal); F14.20 Cocaine dependence, uncomplicated; F17.210 Nicotine dependence, cigarettes, uncomplicated; R74.0 Nonspecific elevation of levels of transaminase and lactic acid dehydrogenase [LDH]; L40.9 Psoriasis, unspecified; Z87.438 Personal history of other diseases of male genital organs; Z91.19 Patient's noncompliance with other medical treatment and regimen
CPT/HCPCS: 36415; 80053; 81003; 84450; 85025; J0735

== ENCOUNTER 2019-01-12 10:05 | Inpatient (IN) | payer OTHER | END 2019-01-17 10:07 | disposition home or self-care (01) | LOC: YASAS 10:05 → Y6N 11:27 ==

== ENCOUNTER 2019-02-14 11:17 | Inpatient (IN) | payer OTHER ==
[2019-02-14 11:37] VITALS: BMI 26.1
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
[2019-02-14] MEDS ORDERED: BISMUTH SUBSALICYLATE 262 MG/15 ML BTL PO PRN (12:46)
[2019-02-14] MEDS ORDERED: NICOTINE POLACRILEX 2 MG GUM BUC PRN (12:46)
[2019-02-14] MEDS ORDERED: IBUPROFEN 400 MG TABLET (FP) PO PRN (12:46)
[2019-02-14] MEDS ORDERED: MAG HYDROX/AL HYDROX/SIMETH 30 ML UNIT-DOSE CUP PO PRN (12:46)
[2019-02-14] MEDS ORDERED: cloNIDine HCL 0.1 MG TABLET PO PRN (12:46)
[2019-02-14] MEDS ORDERED: MELATONIN 5 MG TABLETS PO PRN (12:46)
[2019-02-14] MEDS ORDERED: MENTHOL/PHENOL 1 EACH UD MM PRN (12:46)
[2019-02-14] MEDS ORDERED: hydrOXYzine PAMOATE 25 MG CAPSULE (FP) PO PRN (12:46)
[2019-02-14] MEDS ORDERED: MAGNESIUM CITRATE 300 ML BOTTLE PO PRN (12:46)
[2019-02-14] MEDS ORDERED: MAGNESIUM HYDROX 2400MG/30ML ORAL SUSPENSION 30 ML CUP PO PRN (12:46)
[2019-02-14] MEDS ORDERED: ACETAMINOPHEN 325 MG TABLET (FP) PO PRN ×2 (12:46)
[2019-02-14] MEDS ORDERED: AMMONIUM LACTATE 12% LOTION 225 GM BOTTLE TP PRN (12:48)
--- NOTE | 2019-02-14 12:55 | PN ---
Teaching Attending Note Name of Resident: Marlo Reid ATTENDING PHYSICIAN STATEMENT I saw and evaluated the patient. I reviewed the resident's note and discussed the case with the resident. I agree with the resident's findings and plan as documented. SUBJECTIVE: I agree with resident's subjective findings OBJECTIVE: I agree with resident's objective findings ASSESSMENT AND PLAN: Agree with admission for detox from heroin as per methadone protocol. Dr. Fernández
[2019-02-14] MEDS ORDERED: METHADONE HCL 10 MG TABLET (FOR DETOX USE ONLY) PO ONE (13:30)
[2019-02-14 16:19] LABS: HEMATOCRIT 44.2 % (35.4-49); HEMOGLOBIN 14.8 GM/dL (11.7-16.9); MCH 29.6 pg (25.7-33.7); MCHC 33.5 g/dl (32.0-35.9); MEAN CELL VOLUME 88.5 fl (80-96); MEAN PLT VOLUME 11.4 fl (7.5-11.1); PLATELET COUNT 345 K/MM3 (134-434); RBC 4.99 M/mm3 (4.00-5.60); RDW 13.8 % (11.9-15.9); WHITE BLOOD COUNT 7.9 K/mm3 (4.0-10.0)
[2019-02-14 16:38] LABS: ALBUMIN 4.2 g/dl (3.4-5.0); BILIRUBIN,TOTAL 0.8 mg/dL (0.2-1); BLOOD UREA NITROGEN 13.8 mg/dL (7-18); CALCIUM 8.9 mg/dL (8.5-10.1); CREATININE 1.1 mg/dL (0.55-1.3); POTASSIUM 4.1 mmol/L (3.5-5.1); TOT PROT 8.9 g/dl (6.4-8.2)
[2019-02-14] MEDS: THIAMINE HCL 100 MG TABLET (FP) PO SCH (22:06)
[2019-02-15] MEDS ORDERED: METHADONE (DETOX) 20 MG, METHADONE (DETOX) 5 MG PO ONE (10:00)
[2019-02-15] MEDS ORDERED: METHADONE HCL 10 MG TABLET (FOR DETOX USE ONLY) ONE (10:13)
[2019-02-15] MEDS ORDERED: METHADONE HCL 5 MG TABLET (FOR DETOX USE ONLY) ONE (10:14)
[2019-02-15] MEDS: PRENATAL VITAMINS W/ FOLIC ACID TABLET (FP) PO SCH (10:15)
[2019-02-15] MEDS ORDERED: MELATONIN 5 MG TABLETS PO PRN (14:27)
--- NOTE | 2019-02-15 14:49 | PN ---
[facility] COWS - Scale Resting Pulse: 0= [place] 80 or Below Sweatin= Chills/Flushing Restless Observation: 0= Sits Still Pupil Size: 0= Normal to Room Light Bone or Joint Aches: 1= Mild Discomfort Runny Nose/ Eye Tearin= None GI Upset > 30mins: 0= None Tremor Observation of Outstretched Hands: 0= None Yawning Observation: 1= 1-2x During Session Anxiety or Irritability: 2=Irritable/Anxious Goose Flesh Skin: 3=Piloerection COWS Score: 8 BHS Progress Note (SOAP) Subjective: Tremors, Fatigue, Interrupted Sleep. Objective: PATIENT A & O X 3. IN NO ACUTE DISTRESS. 02/15/19 14:45 Vital Signs Temperature 97.5 F L 02/15/19 13:07 Pulse Rate 68 02/15/19 13:07 Respiratory Rate 18 02/15/19 13:07 Blood Pressure 113/79 02/15/19 13:07 O2 Sat by Pulse Oximetry (%) Laboratory Tests 02/14/19 02/14/19 02/14/19 13:15 13:15 13:15 WBC 7.9 RBC 4.99 Hgb 14.8 Hct 44.2 MCV 88.5 MCH 29.6 MCHC 33.5 RDW 13.8 Plt Count 345 MPV 11.4 H Sodium 135 L Potassium 4.1 Chloride 100 Carbon Dioxide 27 Anion Gap 8 BUN 13.8 Creatinine 1.1 Est GFR (CKD-EPI)AfAm 97.49 Est GFR (CKD-EPI)NonAf 84.12 Random Glucose 133 H Calcium 8.9 Total Bilirubin 0.8 AST 578 H ALT 1191 H Alkaline Phosphatase 105 Total Protein 8.9 H Albumin 4.2 HIV 1&2 Antibody Screen Negative HIV P24 Antigen Negative LABS NOTED. PATIENT HAS HAD ELEVATED AST, ALT, AND RANDOM GLUCOSE LEVELS ON PREVIOUS ADMISSIONS. 02/15/19 14:46 Assessment: 02/15/19 14:46 WITHDRAWAL SYMPTOMS. ELEVATED ALT LEVEL. ELEVATED AST LEVEL. HYPERGLYCEMIA. 02/15/19 14:46 Plan: CONTINUE DETOX. INCREASE DAILY PO WATER INTAKE. REPEAT AST AND ALT ORDERED FOR 02/17/2019 FOR ELEVATED AST AND ALT LEVEL NOTED ON DETOX ADMISSION LABORATORY ASSESSMENT. FASTING GLUCOSE LEVEL ORDERED FOR 02/17/2019 AM FOR ELEVATED RANDOM GLUCOSE LEVEL NOTED ON DETOX ADMISSION LABORATORY ASSESSMENT.
[2019-02-15] MEDS: THIAMINE HCL 100 MG TABLET (FP) PO SCH (22:11)
[2019-02-16 09:14] VITALS: BP 111/68; PULSE 70; TEMP 97.8
[2019-02-16] MEDS ORDERED: METHADONE HCL 10 MG TABLET (FOR DETOX USE ONLY) PO ONE (10:00)
[2019-02-16] MEDS: PRENATAL VITAMINS W/ FOLIC ACID TABLET (FP) PO SCH (10:15)
--- NOTE | 2019-02-16 11:37 | PN ---
[facility] Progress Note Note: Patient left AMA. Patient highly encourage to continue treatment to no avail. Reports has a family emergency he needs to handle and needs to go now. Patient advised on the risk of interrupting treatment which include relapse and . Patient to follow up with primary care provider within a week asymptomatic: abnormal labs. Advise if worsening symptoms to seek medical attention. Patient verbalizes understanding.
--- NOTE | 2019-02-16 11:47 | DS ---
[facility] Detox Discharge Summary Admission Date: 02/14/19 Discharge Date: 02/16/19 - History Present History: Cocaine Dependence, Opioid Dependence Additional Comments: Patient left AMA. Denies SI/HI. patient advised on risk. Follow up with out patient referral. Risk discussed. Follwo up with primary care doctor within a week re: elevated LFts. Seek medical attention if worsening symptoms are present. - Physical Exam Results Vital Signs: Vital Signs Temperature 97.8 F 02/16/19 09:13 Pulse Rate 70 02/16/19 09:13 Respiratory Rate 18 02/16/19 09:13 Blood Pressure 111/68 02/16/19 09:13 O2 Sat by Pulse Oximetry (%) Pertinent Admission Physical Exam Findings: Vital Signs Temperature 97.8 F 02/16/19 09:13 Pulse Rate 70 02/16/19 09:13 Respiratory Rate 18 02/16/19 09:13 Blood Pressure 111/68 02/16/19 09:13 O2 Sat by Pulse Oximetry (%) Laboratory Last Values WBC 7.9 K/mm3 (4.0-10.0) 02/14/19 13:15 RBC 4.99 M/mm3 (4.00-5.60) 02/14/19 13:15 Hgb 14.8 GM/dL (11.7-16.9) 02/14/19 13:15 Hct 44.2 % (35.4-49) 02/14/19 13:15 MCV 88.5 fl (80-96) 02/14/19 13:15 MCH 29.6 pg (25.7-33.7) 02/14/19 13:15 MCHC 33.5 g/dl (32.0-35.9) 02/14/19 13:15 RDW 13.8 % (11.9-15.9) 02/14/19 13:15 Plt Count 345 K/MM3 (134-434) 02/14/19 13:15 MPV 11.4 fl (7.5-11.1) H 02/14/19 13:15 Sodium 135 mmol/L (136-145) L 02/14/19 13:15 Potassium 4.1 mmol/L (3.5-5.1) 02/14/19 13:15 Chloride 100 mmol/L (98-107) 02/14/19 13:15 Carbon Dioxide 27 mmol/L (21-32) 02/14/19 13:15 Anion Gap 8 MMOL/L (8-16) 02/14/19 13:15 BUN 13.8 mg/dL (7-18) 02/14/19 13:15 Creatinine 1.1 mg/dL (0.55-1.3) 02/14/19 13:15 Est GFR (CKD-EPI)AfAm 97.49 02/14/19 13:15 Est GFR (CKD-EPI)NonAf 84.12 02/14/19 13:15 Random Glucose 133 mg/dL (74-106) H 02/14/19 13:15 Calcium 8.9 mg/dL (8.5-10.1) 02/14/19 13:15 Total Bilirubin 0.8 mg/dL (0.2-1) 02/14/19 13:15 AST 578 U/L (15-37) H 02/14/19 13:15 ALT 1191 U/L (13-61) H 02/14/19 13:15 Alkaline Phosphatase 105 U/L (45-117) 02/14/19 13:15 Total Protein 8.9 g/dl (6.4-8.2) H 02/14/19 13:15 Albumin 4.2 g/dl (3.4-5.0) 02/14/19 13:15 HIV 1&2 Antibody Screen Negative 02/14/19 13:15 HIV P24 Antigen Negative 02/14/19 13:15 Aox3 no acute distress EENt WNL No abdominal pain or tenderness Full ROM no gait disturbance no edema or erythema - Treatment Hospital Course: Discharged Condition Good - Medication Discharge Medications: Ambulatory Orders NK [No Known Home Medication] 02/22/18 - Diagnosis (1) Elevated alanine aminotransferase (ALT) level Current Visit: Yes Status: Acute (2) Elevated aspartate aminotransferase level Current Visit: Yes Status: Acute (3) Hyperglycemia Current Visit: Yes Status: Acute (4) Bipolar disorder Current Visit: Yes Status: Chronic (5) Cocaine dependence, uncomplicated Current Visit: Yes Status: Chronic (6) Opioid dependence with withdrawal Current Visit: Yes Status: Chronic - AMA Did Patient Leave Against Medical Advice: Yes
[2019-02-17] MEDS ORDERED: METHADONE (DETOX) 10 MG, METHADONE (DETOX) 5 MG PO ONE (10:00)
[2019-02-18] MEDS ORDERED: METHADONE HCL 10 MG TABLET (FOR DETOX USE ONLY) PO ONE (10:00)
[2019-02-19] MEDS ORDERED: METHADONE HCL 5 MG TABLET (FOR DETOX USE ONLY) PO ONE (06:00)
== END 2019-02-16 11:58 | disposition left against medical advice (07) | DRG 770 ==
LOC: YASAS 11:17 → Y3N 12:58
PROVIDERS: ADMIT Allergy & Immunology; ATTEND Allergy & Immunology
PROC: HZ2ZZZZ Detoxification Services for Substance Abuse Treatment (ICD-10-PCS; principal; 2019-02-14)
DX: F11.23 Opioid dependence with withdrawal (principal); F14.20 Cocaine dependence, uncomplicated; F17.210 Nicotine dependence, cigarettes, uncomplicated; F31.9 Bipolar disorder, unspecified; F19.24 Other psychoactive substance dependence with psychoactive substance-induced mood disorder; F19.282 Other psychoactive substance dependence with psychoactive substance-induced sleep disorder; F43.10 Post-traumatic stress disorder, unspecified; G47.00 Insomnia, unspecified; R74.0 Nonspecific elevation of levels of transaminase and lactic acid dehydrogenase [LDH]; R73.9 Hyperglycemia, unspecified; L90 Atrophic disorders of skin; Z91.011 Allergy to milk products
CPT/HCPCS: 36415; 80053; 85027; 87389

== ENCOUNTER 2019-03-31 09:18 | Inpatient (IN) | payer OTHER ==
[2019-03-31 09:33] VITALS: BMI 24.7
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
[2019-03-31] MEDS ORDERED: hydrOXYzine PAMOATE 25 MG CAPSULE (FP) PO PRN (10:31)
[2019-03-31] MEDS ORDERED: NICOTINE POLACRILEX 2 MG GUM BUC PRN (10:31)
[2019-03-31] MEDS ORDERED: ACETAMINOPHEN 325 MG TABLET (FP) PO PRN ×2 (10:31)
[2019-03-31] MEDS ORDERED: IBUPROFEN 400 MG TABLET (FP) PO PRN (10:31)
[2019-03-31] MEDS ORDERED: METHADONE HCL 10 MG TABLET (FOR DETOX USE ONLY) PO ONE (10:31)
[2019-03-31] MEDS ORDERED: BISMUTH SUBSALICYLATE 524 MG/30 ML UD PO PRN (10:31)
[2019-03-31] MEDS ORDERED: MAGNESIUM HYDROX 2400MG/30ML ORAL SUSPENSION 30 ML CUP PO PRN (10:31)
[2019-03-31] MEDS ORDERED: LORazepam 1 MG TABLET PO PRN (10:31)
[2019-03-31] MEDS ORDERED: cloNIDine HCL 0.1 MG TABLET PO PRN (10:31)
[2019-03-31] MEDS ORDERED: MAG HYDROX/AL HYDROX/SIMETH 30 ML UNIT-DOSE CUP PO PRN (10:31)
[2019-03-31] MEDS ORDERED: MENTHOL/PHENOL 1 EACH UD MM PRN (10:31)
[2019-03-31] MEDS ORDERED: MAGNESIUM CITRATE 300 ML BOTTLE PO PRN (10:31)
[2019-03-31] MEDS: LORazepam 2 MG TABLET PO SCH ×3 (13:25→22:04)
[2019-03-31] MEDS: METHOCARBAMOL 500 MG TABLET PO PRN (13:31)
[2019-03-31] MEDS: THIAMINE HCL 100 MG TABLET (FP) PO SCH (22:05)
[2019-04-01] MEDS: LORazepam 2 MG TABLET PO SCH ×4 (05:57→22:15)
[2019-04-01 10:00] LABS: BILIRUBIN,TOTAL 0.3 mg/dL (0.2-1); BLOOD UREA NITROGEN 13.4 mg/dL (7-18); CALCIUM 8.4 mg/dL (8.5-10.1); CREATININE 0.9 mg/dL (0.55-1.3); POTASSIUM 4.2 mmol/L (3.5-5.1); TOT PROT 7.1 g/dl (6.4-8.2)
[2019-04-01] MEDS ORDERED: METHADONE (DETOX) 20 MG, METHADONE (DETOX) 5 MG PO ONE (10:00)
[2019-04-01] MEDS ORDERED: METHADONE HCL 10 MG TABLET (FOR DETOX USE ONLY) ONE (10:10)
[2019-04-01] MEDS ORDERED: METHADONE HCL 5 MG TABLET (FOR DETOX USE ONLY) ONE (10:11)
[2019-04-01 10:16] LABS: HEMATOCRIT 38.2 % (35.4-49); HEMOGLOBIN 12.8 GM/dL (11.7-16.9); MCH 29.2 pg (25.7-33.7); MCHC 33.6 g/dl (32.0-35.9); MEAN PLT VOLUME 10.9 fl (7.5-11.1); PLATELET COUNT 275 K/MM3 (134-434); RBC 4.39 M/mm3 (4.00-5.60); RDW 13.9 % (11.9-15.9); WHITE BLOOD COUNT 4.9 K/mm3 (4.0-10.0)
[2019-04-01] MEDS: METHOCARBAMOL 500 MG TABLET PO PRN ×2 (10:18→17:33)
[2019-04-01] MEDS: PRENATAL VITAMINS W/ FOLIC ACID TABLET (FP) PO SCH (10:18)
--- NOTE | 2019-04-01 11:56 | PN ---
[facility] CIWA - CIWA Score Nausea/Vomitin-Mild Nausea/No Vomiting Muscle Tremors: 1-None Visible, but [place] Anxiety: 1-Mildly Anxious Agitation: 1-Slight > Activity Paroxysmal Sweats: 2 Orientation: 0-Oriented Tacttile Disturbances: 2-Mild Itch/Numbness/Burn Auditory Disturbances: 0-None Visual Disturbances: 0-None Headache: 0-None Present CIWA-Ar Total Score: 8 [facility] COWS - Scale Resting Pulse: 1= [place] 81-100 Sweatin= Chills/Flushing Restless Observation: 1= Difficult to Sit Still Pupil Size: 1= Pupils >than Normal Bone or Joint Aches: 2= Severe Diffuse Aches Runny Nose/ Eye Tearin= Nasal Congestion GI Upset > 30mins: 1= Stomach Cramp Tremor Observation of Outstretched Hands: 1= Tremor [place], Not Seen Yawning Observation: 0= None Anxiety or Irritability: 1=Feels Anxious/Irritable Goose Flesh Skin: 0=Smooth Skin COWS Score: 10 S Progress Note (SOAP) Subjective: interrupted sleep, sweats Objective: 04/01/19 11:52 Vital Signs Temperature 98.0 F 04/01/19 09:23 Pulse Rate 84 04/01/19 09:23 Respiratory Rate 18 04/01/19 09:23 Blood Pressure 133/88 04/01/19 09:23 O2 Sat by Pulse Oximetry (%) Laboratory Tests 04/01/19 04/01/19 04/01/19 06:50 06:50 06:50 WBC 4.9 RBC 4.39 Hgb 12.8 Hct 38.2 MCV 87.0 MCH 29.2 MCHC 33.6 RDW 13.9 Plt Count 275 D MPV 10.9 Sodium 139 Potassium 4.2 Chloride 107 Carbon Dioxide 29 Anion Gap 3 L BUN 13.4 Creatinine 0.9 Est GFR (CKD-EPI)AfAm 124.26 Est GFR (CKD-EPI)NonAf 107.21 Random Glucose 76 Calcium 8.4 L Total Bilirubin 0.3 AST 247 H ALT 217 H Alkaline Phosphatase 103 Total Protein 7.1 Albumin 3.0 L RPR Titer Nonreactive pt aox3 lying in bed in nad. Assessment: 04/01/19 11:54 withdrawal sx's elevated transaminases ast [id number] were 578 and 1191 in feb 14, 2019. 04/01/19 11:58 04/01/19 12:01 Plan: cont. deetox increase fluids d/c tylenol repeat sgot/sgpt
[2019-04-01] MEDS: MELATONIN 5 MG TABLETS PO PRN (22:15)
[2019-04-01] MEDS: THIAMINE HCL 100 MG TABLET (FP) PO SCH (22:15)
[2019-04-02] MEDS: LORazepam 1 MG TABLET PO SCH ×4 (05:05→22:11)
[2019-04-02] MEDS ORDERED: METHADONE HCL 10 MG TABLET (FOR DETOX USE ONLY) PO ONE (10:00)
[2019-04-02] MEDS: PRENATAL VITAMINS W/ FOLIC ACID TABLET (FP) PO SCH (10:09)
[2019-04-02] MEDS: METHOCARBAMOL 500 MG TABLET PO PRN (10:11)
[2019-04-02 10:54] LABS: INR 1.01 (0.83-1.09); PROTHROMBIN TIME (PATIENT) 11.9 SEC (9.7-13.0)
[2019-04-02 10:55] LABS: SGOT/AST 348 U/L (15-37); SGPT/ALT 362 U/L (13-61)
--- NOTE | 2019-04-02 12:06 | PN ---
[facility] CIWA - CIWA Score Nausea/Vomitin-No Nausea/No Vomiting Muscle Tremors: None Anxiety: 3 Agitation: 0-Normal Activity Paroxysmal Sweats: 3 Orientation: 0-Oriented Tacttile Disturbances: 0-None Auditory Disturbances: 0-None Visual Disturbances: 0-None Headache: 1-Very Mild CIWA-Ar Total Score: 7 S COWS - Scale Resting Pulse: 1= [place] 81-100 (66) Sweatin= Beads of Sweat on Face Restless Observation: 1= Difficult to Sit Still Pupil Size: 0= Normal to Room Light Bone or Joint Aches: 1= Mild Discomfort Runny Nose/ Eye Tearin= None GI Upset > 30mins: 0= None Tremor Observation of Outstretched Hands: 0= None Yawning Observation: 1= 1-2x During Session Anxiety or Irritability: 2=Irritable/Anxious Goose Flesh Skin: 0=Smooth Skin COWS Score: 9 S Progress Note (SOAP) Subjective: c/o muscle aches, headache, sweats, anxiety, and irritability. Objective: 04/02/19 12:05 Vital Signs 04/02/19 04/02/19 06:36 09:26 Temperature 97.2 F L 97.0 F L Pulse Rate 72 86 Respiratory 18 18 Rate Blood Pressure 124/72 127/91 Laboratory Last Values WBC 4.9 K/mm3 (4.0-10.0) 04/01/19 06:50 RBC 4.39 M/mm3 (4.00-5.60) 04/01/19 06:50 Hgb 12.8 GM/dL (11.7-16.9) 04/01/19 06:50 Hct 38.2 % (35.4-49) 04/01/19 06:50 MCV 87.0 fl (80-96) 04/01/19 06:50 MCH 29.2 pg (25.7-33.7) 04/01/19 06:50 MCHC 33.6 g/dl (32.0-35.9) 04/01/19 06:50 RDW 13.9 % (11.9-15.9) 04/01/19 06:50 Plt Count 275 K/MM3 (134-434) D 04/01/19 06:50 MPV 10.9 fl (7.5-11.1) 04/01/19 06:50 PT with INR 11.90 SEC (9.7-13.0) 04/02/19 09:20 INR 1.01 (0.83-1.09) 04/02/19 09:20 Sodium 139 mmol/L (136-145) 04/01/19 06:50 Potassium 4.2 mmol/L (3.5-5.1) 04/01/19 06:50 Chloride 107 mmol/L (98-107) 04/01/19 06:50 Carbon Dioxide 29 mmol/L (21-32) 04/01/19 06:50 Anion Gap 3 MMOL/L (8-16) L 04/01/19 06:50 BUN 13.4 mg/dL (7-18) 04/01/19 06:50 Creatinine 0.9 mg/dL (0.55-1.3) 04/01/19 06:50 Est GFR (CKD-EPI)AfAm 124.26 04/01/19 06:50 Est GFR (CKD-EPI)NonAf 107.21 04/01/19 06:50 Random Glucose 76 mg/dL (74-106) 04/01/19 06:50 Calcium 8.4 mg/dL (8.5-10.1) L 04/01/19 06:50 Total Bilirubin 0.3 mg/dL (0.2-1) 04/01/19 06:50 AST 348 U/L (15-37) H 04/02/19 07:50 ALT 362 U/L (13-61) H 04/02/19 07:50 Alkaline Phosphatase 103 U/L (45-117) 04/01/19 06:50 Total Protein 7.1 g/dl (6.4-8.2) 04/01/19 06:50 Albumin 3.0 g/dl (3.4-5.0) L 04/01/19 06:50 RPR Titer Nonreactive (NONREACTIVE) 04/01/19 06:50 HIV 1&2 Ag/Ab, 4th Gen Non reactive (Non Reactive) 04/01/19 10:00 HIV 1&2 Antibody Screen Cancelled 04/01/19 06:50 HIV P24 Antigen Cancelled 04/01/19 06:50 Labs noted. Assessment: 04/02/19 12:06 AOX3, in no acute respiratory distress. Full ROM, ambulating in the unit. withdrawal symptoms. Plan: continue detox.
[2019-04-02] MEDS: MELATONIN 5 MG TABLETS PO PRN (22:11)
[2019-04-02] MEDS: THIAMINE HCL 100 MG TABLET (FP) PO SCH (22:11)
[2019-04-03] MEDS ORDERED: LORazepam 0.5 MG TABLET PO PRN
[2019-04-03] MEDS: LORazepam 0.5 MG TABLET PO SCH ×4 (05:23→22:00)
[2019-04-03] MEDS ORDERED: METHADONE HCL 5 MG TABLET (FOR DETOX USE ONLY) ONE (08:26)
[2019-04-03] MEDS ORDERED: METHADONE HCL 10 MG TABLET (FOR DETOX USE ONLY) ONE (08:26)
[2019-04-03] MEDS ORDERED: METHADONE (DETOX) 10 MG, METHADONE (DETOX) 5 MG PO ONE (10:00)
[2019-04-03] MEDS: PRENATAL VITAMINS W/ FOLIC ACID TABLET (FP) PO SCH (10:28)
--- NOTE | 2019-04-03 13:05 | PN ---
S CIWA - CIWA Score Nausea/Vomitin-No Nausea/No Vomiting Muscle Tremors: 2 Anxiety: 2 Agitation: 2 Paroxysmal Sweats: No Perspiration Orientation: 0-Oriented Tacttile Disturbances: 0-None Auditory Disturbances: 0-None Visual Disturbances: 0-None Headache: 0-None Present CIWA-Ar Total Score: 6 BHS COWS - Scale Resting Pulse: 0= [place] 80 or Below Sweatin= Chills/Flushing Restless Observation: 0= Sits Still Pupil Size: 0= Normal to Room Light Bone or Joint Aches: 1= Mild Discomfort Runny Nose/ Eye Tearin= None GI Upset > 30mins: 1= Stomach Cramp Tremor Observation of Outstretched Hands: 1= Tremor [place], Not Seen Yawning Observation: 1= 1-2x During Session Anxiety or Irritability: 1=Feels Anxious/Irritable Goose Flesh Skin: 0=Smooth Skin COWS Score: 6 S Progress Note (SOAP) Subjective: 38 years old male admitted on 03/31/19 for alcohol and opiate withdrawal sx management treated with ativan and methadone detox regimen feeling better today ate breakfast resting on bed comfortably 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 Objective: 04/03/19 13:02 Vital Signs Temperature 96.8 F L 04/03/19 09:17 Pulse Rate 78 04/03/19 09:17 Respiratory Rate 18 04/03/19 09:17 Blood Pressure 122/78 04/03/19 09:17 O2 Sat by Pulse Oximetry (%) Laboratory Last Values WBC 4.9 K/mm3 (4.0-10.0) 04/01/19 06:50 RBC 4.39 M/mm3 (4.00-5.60) 04/01/19 06:50 Hgb 12.8 GM/dL (11.7-16.9) 04/01/19 06:50 Hct 38.2 % (35.4-49) 04/01/19 06:50 MCV 87.0 fl (80-96) 04/01/19 06:50 MCH 29.2 pg (25.7-33.7) 04/01/19 06:50 MCHC 33.6 g/dl (32.0-35.9) 04/01/19 06:50 RDW 13.9 % (11.9-15.9) 04/01/19 06:50 Plt Count 275 K/MM3 (134-434) D 04/01/19 06:50 MPV 10.9 fl (7.5-11.1) 04/01/19 06:50 PT with INR 11.90 SEC (9.7-13.0) 04/02/19 09:20 INR 1.01 (0.83-1.09) 04/02/19 09:20 Sodium 139 mmol/L (136-145) 04/01/19 06:50 Potassium 4.2 mmol/L (3.5-5.1) 04/01/19 06:50 Chloride 107 mmol/L (98-107) 04/01/19 06:50 Carbon Dioxide 29 mmol/L (21-32) 04/01/19 06:50 Anion Gap 3 MMOL/L (8-16) L 04/01/19 06:50 BUN 13.4 mg/dL (7-18) 04/01/19 06:50 Creatinine 0.9 mg/dL (0.55-1.3) 04/01/19 06:50 Est GFR (CKD-EPI)AfAm 124.26 04/01/19 06:50 Est GFR (CKD-EPI)NonAf 107.21 04/01/19 06:50 Random Glucose 76 mg/dL (74-106) 04/01/19 06:50 Calcium 8.4 mg/dL (8.5-10.1) L 04/01/19 06:50 Total Bilirubin 0.3 mg/dL (0.2-1) 04/01/19 06:50 AST 348 U/L (15-37) H 04/02/19 07:50 ALT 362 U/L (13-61) H 04/02/19 07:50 Alkaline Phosphatase 103 U/L (45-117) 04/01/19 06:50 Total Protein 7.1 g/dl (6.4-8.2) 04/01/19 06:50 Albumin 3.0 g/dl (3.4-5.0) L 04/01/19 06:50 RPR Titer Nonreactive (NONREACTIVE) 04/01/19 06:50 HIV 1&2 Ag/Ab, 4th Gen Non reactive (Non Reactive) 04/01/19 10:00 HIV 1&2 Antibody Screen Cancelled 04/01/19 06:50 HIV P24 Antigen Cancelled 04/01/19 06:50 lab noted ast elevation repeat ast Assessment: 04/03/19 13:04 alcohol and opiate withdrawal sx Plan: continue ativan and methadone detox regimen
[2019-04-03] MEDS: MELATONIN 5 MG TABLETS PO PRN (21:52)
[2019-04-03] MEDS: THIAMINE HCL 100 MG TABLET (FP) PO SCH (21:58)
[2019-04-04] MEDS ORDERED: LORazepam 0.5 MG TABLET PO ONE (05:00)
[2019-04-04] MEDS ORDERED: METHADONE HCL 10 MG TABLET (FOR DETOX USE ONLY) PO ONE (10:00)
[2019-04-04] MEDS: PRENATAL VITAMINS W/ FOLIC ACID TABLET (FP) PO SCH (10:11)
[2019-04-04 10:18] LABS: PH,URINE 7.5 (5.0-8.0); URINE APPEARANCE CLEAR; URINE BILIRUBIN NEGATIVE (NEGATIVE); URINE COLOR YELLOW; URINE GLUCOSE (UA) NEGATIVE (NEGATIVE); URINE KETONE NEGATIVE (NEGATIVE); URINE LEUK ESTERASE NEGATIVE (NEGATIVE); URINE NITRITE NEGATIVE (NEGATIVE); URINE PROTEIN NEGATIVE (NEGATIVE)
--- NOTE | 2019-04-04 11:22 | PN ---
[facility] CIWA - CIWA Score Nausea/Vomitin-No Nausea/No Vomiting Muscle Tremors: 1-None Visible, but [place] Anxiety: 2 Agitation: 0-Normal Activity Paroxysmal Sweats: No Perspiration Orientation: 0-Oriented Tacttile Disturbances: 0-None Auditory Disturbances: 0-None Visual Disturbances: 0-None Headache: 0-None Present CIWA-Ar Total Score: 3 S COWS - Scale Resting Pulse: 0= [place] 80 or Below Sweatin= Chills/Flushing Restless Observation: 0= Sits Still Pupil Size: 0= Normal to Room Light Bone or Joint Aches: 1= Mild Discomfort Runny Nose/ Eye Tearin= None GI Upset > 30mins: 0= None Tremor Observation of Outstretched Hands: 0= None Yawning Observation: 0= None Anxiety or Irritability: 1=Feels Anxious/Irritable Goose Flesh Skin: 0=Smooth Skin COWS Score: 3 S Progress Note (SOAP) Subjective: 38 years old male admitted on 03/31/19 for alcohol and opiate withdrawal sx management treated with ativan and methadone detox regimen feeling better slept through the night discuss aftercare with staff 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 Objective: 04/04/19 11:19 Vital Signs Temperature 97.2 F L 04/04/19 07:27 Pulse Rate 79 04/04/19 09:02 Respiratory Rate 18 04/04/19 09:02 Blood Pressure 120/73 04/04/19 09:02 O2 Sat by Pulse Oximetry (%) Laboratory Last Values WBC 4.9 K/mm3 (4.0-10.0) 04/01/19 06:50 RBC 4.39 M/mm3 (4.00-5.60) 04/01/19 06:50 Hgb 12.8 GM/dL (11.7-16.9) 04/01/19 06:50 Hct 38.2 % (35.4-49) 04/01/19 06:50 MCV 87.0 fl (80-96) 04/01/19 06:50 MCH 29.2 pg (25.7-33.7) 04/01/19 06:50 MCHC 33.6 g/dl (32.0-35.9) 04/01/19 06:50 RDW 13.9 % (11.9-15.9) 04/01/19 06:50 Plt Count 275 K/MM3 (134-434) D 04/01/19 06:50 MPV 10.9 fl (7.5-11.1) 04/01/19 06:50 PT with INR 11.90 SEC (9.7-13.0) 04/02/19 09:20 INR 1.01 (0.83-1.09) 04/02/19 09:20 Sodium 139 mmol/L (136-145) 04/01/19 06:50 Potassium 4.2 mmol/L (3.5-5.1) 04/01/19 06:50 Chloride 107 mmol/L (98-107) 04/01/19 06:50 Carbon Dioxide 29 mmol/L (21-32) 04/01/19 06:50 Anion Gap 3 MMOL/L (8-16) L 04/01/19 06:50 BUN 13.4 mg/dL (7-18) 04/01/19 06:50 Creatinine 0.9 mg/dL (0.55-1.3) 04/01/19 06:50 Est GFR (CKD-EPI)AfAm 124.26 04/01/19 06:50 Est GFR (CKD-EPI)NonAf 107.21 04/01/19 06:50 Random Glucose 76 mg/dL (74-106) 04/01/19 06:50 Calcium 8.4 mg/dL (8.5-10.1) L 04/01/19 06:50 Total Bilirubin 0.3 mg/dL (0.2-1) 04/01/19 06:50 AST 442 U/L (15-37) H 04/04/19 07:30 ALT 362 U/L (13-61) H 04/02/19 07:50 Alkaline Phosphatase 103 U/L (45-117) 04/01/19 06:50 Total Protein 7.1 g/dl (6.4-8.2) 04/01/19 06:50 Albumin 3.0 g/dl (3.4-5.0) L 04/01/19 06:50 Urine Color Yellow 04/04/19 08:10 Urine Appearance Clear 04/04/19 08:10 Urine pH 7.5 (5.0-8.0) 04/04/19 08:10 Ur Specific [place] 1.018 (1.010-1.035) 04/04/19 08:10 Urine Protein Negative (NEGATIVE) 04/04/19 08:10 Urine Glucose (UA) Negative (NEGATIVE) 04/04/19 08:10 Urine Ketones Negative (NEGATIVE) 04/04/19 08:10 Urine Blood Negative (NEGATIVE) 04/04/19 08:10 Urine Nitrite Negative (NEGATIVE) 04/04/19 08:10 Urine Bilirubin Negative (NEGATIVE) 04/04/19 08:10 Urine Urobilinogen 1.0 mg/dL (0.2-1.0) 04/04/19 08:10 Ur Leukocyte Esterase Negative (NEGATIVE) 04/04/19 08:10 RPR Titer Nonreactive (NONREACTIVE) 04/01/19 06:50 HIV 1&2 Ag/Ab, 4th Gen Non reactive (Non Reactive) 04/01/19 10:00 HIV 1&2 Antibody Screen Cancelled 04/01/19 06:50 HIV P24 Antigen Cancelled 04/01/19 06:50 lab noted 04/04/19 11:26 chronic liver enzyme elevation mostly alcohol related liver insult patient agrees to follow up with primary care provider Dr Rees for ast elevation 04/04/19 11:29 04/04/19 11:42 Assessment: 04/04/19 11:43 alcohol and opiate withdrawal sx Plan: continue ativan and methadone detox regimen
[2019-04-04] MEDS: THIAMINE HCL 100 MG TABLET (FP) PO SCH (22:18)
[2019-04-04] MEDS: MELATONIN 5 MG TABLETS PO PRN (22:18)
[2019-04-04] MEDS: METHOCARBAMOL 500 MG TABLET PO PRN (22:18)
[2019-04-05 06:00] VITALS: TEMP 97.6
[2019-04-05] MEDS ORDERED: METHADONE HCL 5 MG TABLET (FOR DETOX USE ONLY) PO ONE (06:00)
[2019-04-05 09:17] VITALS: BP 120/78; PULSE 67
--- NOTE | 2019-04-05 12:52 | DS ---
[facility] Detox Discharge Summary Admission Date: 03/31/19 Discharge Date: 04/05/19 - History Present History: Alcohol Dependence, Opioid Dependence Additional Comments: 38 years old male admitted on 03/31/19 for alcohol and opiate withdrawal sx management treated with ativan and methadone detox regimen patient is alert oriented x 3 cardiac s1s2 regular rate rhythm respiratory clear lung bilaterally on auscultation skin warm and dry Pertinent Past History: patient agrees to bringing in medication list and lab report to [facility] provider for ast elevation follow up discuss alcohol related ast elevation as well as illicit opioid products strong recommend medication assisted treatment program 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 patient prefers to follow up with his primary care provider for ast elevation patient may consider return to [facility] admission - Physical Exam Results Vital Signs: Vital Signs Temperature 97.6 F 04/05/19 05:59 Pulse Rate 67 04/05/19 09:00 Respiratory Rate 18 04/05/19 09:00 Blood Pressure 120/78 04/05/19 09:00 O2 Sat by Pulse Oximetry (%) Pertinent Admission Physical Exam Findings: alcohol and opiate withdrawal sx Laboratory Last Values WBC 4.9 K/mm3 (4.0-10.0) 04/01/19 06:50 RBC 4.39 M/mm3 (4.00-5.60) 04/01/19 06:50 Hgb 12.8 GM/dL (11.7-16.9) 04/01/19 06:50 Hct 38.2 % (35.4-49) 04/01/19 06:50 MCV 87.0 fl (80-96) 04/01/19 06:50 MCH 29.2 pg (25.7-33.7) 04/01/19 06:50 MCHC 33.6 g/dl (32.0-35.9) 04/01/19 06:50 RDW 13.9 % (11.9-15.9) 04/01/19 06:50 Plt Count 275 K/MM3 (134-434) D 04/01/19 06:50 MPV 10.9 fl (7.5-11.1) 04/01/19 06:50 PT with INR 11.90 SEC (9.7-13.0) 04/02/19 09:20 INR 1.01 (0.83-1.09) 04/02/19 09:20 Sodium 139 mmol/L (136-145) 04/01/19 06:50 Potassium 4.2 mmol/L (3.5-5.1) 04/01/19 06:50 Chloride 107 mmol/L (98-107) 04/01/19 06:50 Carbon Dioxide 29 mmol/L (21-32) 04/01/19 06:50 Anion Gap 3 MMOL/L (8-16) L 04/01/19 06:50 BUN 13.4 mg/dL (7-18) 04/01/19 06:50 Creatinine 0.9 mg/dL (0.55-1.3) 04/01/19 06:50 Est GFR (CKD-EPI)AfAm 124.26 04/01/19 06:50 Est GFR (CKD-EPI)NonAf 107.21 04/01/19 06:50 Random Glucose 76 mg/dL (74-106) 04/01/19 06:50 Calcium 8.4 mg/dL (8.5-10.1) L 04/01/19 06:50 Total Bilirubin 0.3 mg/dL (0.2-1) 04/01/19 06:50 AST 442 U/L (15-37) H 04/04/19 07:30 ALT 362 U/L (13-61) H 04/02/19 07:50 Alkaline Phosphatase 103 U/L (45-117) 04/01/19 06:50 Total Protein 7.1 g/dl (6.4-8.2) 04/01/19 06:50 Albumin 3.0 g/dl (3.4-5.0) L 04/01/19 06:50 Urine Color Yellow 04/04/19 08:10 Urine Appearance Clear 04/04/19 08:10 Urine pH 7.5 (5.0-8.0) 04/04/19 08:10 Ur Specific [place] 1.018 (1.010-1.035) 04/04/19 08:10 Urine Protein Negative (NEGATIVE) 04/04/19 08:10 Urine Glucose (UA) Negative (NEGATIVE) 04/04/19 08:10 Urine Ketones Negative (NEGATIVE) 04/04/19 08:10 Urine Blood Negative (NEGATIVE) 04/04/19 08:10 Urine Nitrite Negative (NEGATIVE) 04/04/19 08:10 Urine Bilirubin Negative (NEGATIVE) 04/04/19 08:10 Urine Urobilinogen 1.0 mg/dL (0.2-1.0) 04/04/19 08:10 Ur Leukocyte Esterase Negative (NEGATIVE) 04/04/19 08:10 RPR Titer Nonreactive (NONREACTIVE) 04/01/19 06:50 HIV 1&2 Ag/Ab, 4th Gen Non reactive (Non Reactive) 04/01/19 10:00 HIV 1&2 Antibody Screen Cancelled 04/01/19 06:50 HIV P24 Antigen Cancelled 04/01/19 06:50 lab noted ast elevation - Treatment Hospital Course: Detox Protocol Followed, Detoxed Safely, Responded well, Discharged Condition Good, Rehab Referral Accepted Patient has Accepted a Rehab Referral to: [facility] - Medication Discharge Medications: Ambulatory Orders Naloxone HCl [Narcan] 4 mg NS ASDIR PRN #1 spray 04/03/19 - Diagnosis (1) Elevated aspartate aminotransferase level Status: Chronic (2) Substance induced mood disorder Status: Suspected (3) Alcohol dependence with uncomplicated intoxication Status: Acute (4) Eczema Status: Chronic Qualifiers: Eczema type: unspecified Qualified Code(s): L30.9 - Dermatitis, unspecified (5) Nicotine dependence Status: Acute Qualifiers: Nicotine product type: cigarettes Substance use status: in withdrawal Qualified Code(s): F17.213 - Nicotine dependence, cigarettes, with withdrawal (6) Opioid dependence with withdrawal Status: Acute - AMA Did Patient Leave Against Medical Advice: No CIWA Score - CIWA Score Nausea/Vomitin-No Nausea/No Vomiting Muscle Tremors: 1-None Visible, but [place] Anxiety: 0-No Anxiety, at Ease Agitation: 0-Normal Activity Paroxysmal Sweats: No Perspiration Orientation: 0-Oriented Tacttile Disturbances: 0-None Auditory Disturbances: 0-None Visual Disturbances: 0-None Headache: 0-None Present CIWA-Ar Total Score: 1 COWS (PN) - Opiate Withdrawal Resting Pulse: 0= [place] 80 or Below Sweatin= Chills/Flushing Restless Observation: 0= Sits Still Pupil Size: 0= Normal to Room Light Bone or Joint Aches: 0= None Runny Nose/ Eye Tearin= None GI Upset > 30mins: 0= None Tremor Observation of Outstretched Hands: 0= None Yawning Observation: 0= None Anxiety or Irritability: 0= None Goose Flesh Skin: 0=Smooth Skin COWS Score: 1
== END 2019-04-05 09:10 | disposition home or self-care (01) | DRG 773 ==
LOC: YASAS 09:18 → Y3N 10:32
PROVIDERS: ADMIT Allergy & Immunology; ATTEND Allergy & Immunology
PROC: HZ2ZZZZ Detoxification Services for Substance Abuse Treatment (ICD-10-PCS; principal; 2019-03-31)
DX: F10.230 Alcohol dependence with withdrawal, uncomplicated (principal); F11.23 Opioid dependence with withdrawal; F14.20 Cocaine dependence, uncomplicated; F17.210 Nicotine dependence, cigarettes, uncomplicated; F19.24 Other psychoactive substance dependence with psychoactive substance-induced mood disorder; G47.00 Insomnia, unspecified; L30.9 Dermatitis, unspecified; R74.0 Nonspecific elevation of levels of transaminase and lactic acid dehydrogenase [LDH]; R63.4 Abnormal weight loss; Z68.24 Body mass index [BMI] 24.0-24.9, adult; Z87.828 Personal history of other (healed) physical injury and trauma
CPT/HCPCS: 36415; 80053; 81003; 84450; 84460; 85027; 85610; 86593; 87389

== ENCOUNTER 2019-05-01 09:13 | Inpatient (IN) | payer OTHER ==
[2019-05-01 09:55] VITALS: BMI 25.4
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
[2019-05-01] MEDS ORDERED: BISMUTH SUBSALICYLATE 524 MG/30 ML UD PO PRN (11:15)
[2019-05-01] MEDS ORDERED: NALOXONE HCL 0.4 MG/ML VIAL IM PRN (11:15)
[2019-05-01] MEDS ORDERED: MAGNESIUM CITRATE 300 ML BOTTLE PO PRN (11:15)
[2019-05-01] MEDS ORDERED: MAG HYDROX/AL HYDROX/SIMETH 30 ML UNIT-DOSE CUP PO PRN (11:15)
[2019-05-01] MEDS ORDERED: IBUPROFEN 400 MG TABLET (FP) PO PRN (11:15)
[2019-05-01] MEDS ORDERED: ACETAMINOPHEN 325 MG TABLET (FP) PO PRN (11:15)
[2019-05-01] MEDS ORDERED: LORazepam 1 MG TABLET PO PRN (11:15)
[2019-05-01] MEDS ORDERED: hydrOXYzine PAMOATE 25 MG CAPSULE (FP) PO PRN (11:15)
[2019-05-01] MEDS ORDERED: MAGNESIUM HYDROX 2400MG/30ML ORAL SUSPENSION 30 ML CUP PO PRN (11:15)
[2019-05-01] MEDS ORDERED: MENTHOL/PHENOL 1 EACH UD MM PRN (11:15)
[2019-05-01] MEDS ORDERED: NICOTINE POLACRILEX 2 MG GUM BUC PRN (11:15)
[2019-05-01] MEDS ORDERED: METHADONE HCL 10 MG TABLET (FOR DETOX USE ONLY) PO ONE (11:15)
[2019-05-01] MEDS: cloNIDine HCL 0.1 MG TABLET PO PRN (17:45)
[2019-05-01] MEDS: LORazepam 2 MG TABLET PO SCH ×2 (17:45→22:11)
[2019-05-01] MEDS: THIAMINE HCL 100 MG TABLET (FP) PO SCH (22:11)
[2019-05-01] MEDS: MELATONIN 5 MG TABLETS PO PRN (22:12)
[2019-05-02] MEDS: LORazepam 2 MG TABLET PO SCH ×4 (05:44→22:05)
[2019-05-02] MEDS ORDERED: METHADONE HCL 10 MG TABLET (FOR DETOX USE ONLY) ONE (09:22)
[2019-05-02] MEDS ORDERED: METHADONE HCL 5 MG TABLET (FOR DETOX USE ONLY) ONE (09:22)
[2019-05-02 09:44] LABS: HEMATOCRIT 39.9 % (35.4-49); HEMOGLOBIN 13.2 GM/dL (11.7-16.9); MCH 28.8 pg (25.7-33.7); MEAN CELL VOLUME 87.4 fl (80-96); MEAN PLT VOLUME 10.9 fl (7.5-11.1); PLATELET COUNT 286 K/MM3 (134-434); RBC 4.56 M/mm3 (4.00-5.60); RDW 14.8 % (11.9-15.9); WHITE BLOOD COUNT 6.9 K/mm3 (4.0-10.0)
--- NOTE | 2019-05-02 09:49 | PN ---
S CIWA - CIWA Score Nausea/Vomitin Muscle Tremors: 2 Anxiety: 2 Agitation: 2 Paroxysmal Sweats: No Perspiration Orientation: 0-Oriented Tacttile Disturbances: 1-Very Mild Itch/Numbness Auditory Disturbances: 0-None Visual Disturbances: 0-None Headache: 2-Mild CIWA-Ar Total Score: 11 BHS COWS - Scale Resting Pulse: 1= [place] 81-100 Sweatin= No chills or Flushing Restless Observation: 1= Difficult to Sit Still Pupil Size: 1= Pupils >than Normal Bone or Joint Aches: 1= Mild Discomfort Runny Nose/ Eye Tearin= Runny Nose/Eyes GI Upset > 30mins: 2= Nausea/Diarrhea Tremor Observation of Outstretched Hands: 2= Slight Tremor Visible Yawning Observation: 1= 1-2x During Session Anxiety or Irritability: 2=Irritable/Anxious Goose Flesh Skin: 0=Smooth Skin COWS Score: 13 S Progress Note (SOAP) Subjective: alert,irritable,anxious,pain in rhe body and back,nausea, Objective: 05/02/19 09:47 Vital Signs Temperature 98.1 F 05/02/19 09:05 Pulse Rate 84 05/02/19 09:05 Respiratory Rate 20 05/02/19 09:05 Blood Pressure 152/77 05/02/19 09:05 O2 Sat by Pulse Oximetry (%) 05/02/19 09:48 labs pending Assessment: 05/02/19 09:48 withdrawal symptom Plan: continue detox methadone and ativan regimen
[2019-05-02] MEDS ORDERED: METHADONE (DETOX) 20 MG, METHADONE (DETOX) 5 MG PO ONE (10:00)
[2019-05-02 10:15] LABS: BILIRUBIN,TOTAL 0.3 mg/dL (0.2-1); BLOOD UREA NITROGEN 14.6 mg/dL (7-18); CALCIUM 8.3 mg/dL (8.5-10.1); CREATININE 0.8 mg/dL (0.55-1.3); POTASSIUM 4.1 mmol/L (3.5-5.1)
[2019-05-02] MEDS: PRENATAL VITAMINS W/ FOLIC ACID TABLET (FP) PO SCH (10:30)
[2019-05-02] MEDS: NICOTINE 14 MG/24 HOURS TOPICAL PATCH TD SCH (10:33)
[2019-05-02] MEDS: THIAMINE HCL 100 MG TABLET (FP) PO SCH (22:05)
[2019-05-02] MEDS: cloNIDine HCL 0.1 MG TABLET PO PRN (22:05)
[2019-05-02] MEDS: MELATONIN 5 MG TABLETS PO PRN (22:07)
[2019-05-03] MEDS: LORazepam 1 MG TABLET PO SCH ×4 (05:44→22:02)
[2019-05-03] MEDS ORDERED: METHADONE HCL 10 MG TABLET (FOR DETOX USE ONLY) PO ONE (10:00)
--- NOTE | 2019-05-03 10:01 | PN ---
[facility] CIWA - CIWA Score Nausea/Vomitin-No Nausea/No Vomiting Muscle Tremors: 2 Anxiety: 3 Agitation: 2 Paroxysmal Sweats: 3 Orientation: 0-Oriented Tacttile Disturbances: 1-Very Mild Itch/Numbness Auditory Disturbances: 0-None Visual Disturbances: 0-None Headache: 0-None Present CIWA-Ar Total Score: 11 BHS COWS - Scale Resting Pulse: 0= [place] 80 or Below Sweatin= Beads of Sweat on Face Restless Observation: 1= Difficult to Sit Still Pupil Size: 0= Normal to Room Light Bone or Joint Aches: 2= Severe Diffuse Aches Runny Nose/ Eye Tearin= None GI Upset > 30mins: 0= None Tremor Observation of Outstretched Hands: 2= Slight Tremor Visible Yawning Observation: 1= 1-2x During Session Anxiety or Irritability: 2=Irritable/Anxious Goose Flesh Skin: 0=Smooth Skin COWS Score: 11 S Progress Note (SOAP) Subjective: c/o anxiety, irritability, sweats, shakes, and interrupted sleep. Objective: 05/03/19 10:00 Vital Signs 05/03/19 05/03/19 05/03/19 03:30 06:30 09:15 Temperature 98.1 F 97.9 F Pulse Rate 68 72 Respiratory 18 18 18 Rate Blood Pressure 129/75 129/75 Laboratory Last Values WBC 6.9 K/mm3 (4.0-10.0) 05/02/19 07:00 RBC 4.56 M/mm3 (4.00-5.60) 05/02/19 07:00 Hgb 13.2 GM/dL (11.7-16.9) 05/02/19 07:00 Hct 39.9 % (35.4-49) 05/02/19 07:00 MCV 87.4 fl (80-96) 05/02/19 07:00 MCH 28.8 pg (25.7-33.7) 05/02/19 07:00 MCHC 33.0 g/dl (32.0-35.9) 05/02/19 07:00 RDW 14.8 % (11.9-15.9) 05/02/19 07:00 Plt Count 286 K/MM3 (134-434) 05/02/19 07:00 MPV 10.9 fl (7.5-11.1) 05/02/19 07:00 Sodium 138 mmol/L (136-145) 05/02/19 07:00 Potassium 4.1 mmol/L (3.5-5.1) 05/02/19 07:00 Chloride 105 mmol/L (98-107) 05/02/19 07:00 Carbon Dioxide 28 mmol/L (21-32) 05/02/19 07:00 Anion Gap 4 MMOL/L (8-16) L 05/02/19 07:00 BUN 14.6 mg/dL (7-18) 05/02/19 07:00 Creatinine 0.8 mg/dL (0.55-1.3) 05/02/19 07:00 Est GFR (CKD-EPI)AfAm 130.42 05/02/19 07:00 Est GFR (CKD-EPI)NonAf 112.53 05/02/19 07:00 Random Glucose 87 mg/dL (74-106) 05/02/19 07:00 Calcium 8.3 mg/dL (8.5-10.1) L 05/02/19 07:00 Total Bilirubin 0.3 mg/dL (0.2-1) 05/02/19 07:00 AST 202 U/L (15-37) H 05/02/19 07:00 ALT 282 U/L (13-61) H 05/02/19 07:00 Alkaline Phosphatase 94 U/L (45-117) 05/02/19 07:00 Total Protein 7.0 g/dl (6.4-8.2) 05/02/19 07:00 Albumin 3.0 g/dl (3.4-5.0) L 05/02/19 07:00 Labs noted. Assessment: 05/03/19 10:00 AOX3, in no respiratory distress. Full ROM, ambulating in the unit. Withdrawal symptoms. Plan: continue detox.
[2019-05-03] MEDS: PRENATAL VITAMINS W/ FOLIC ACID TABLET (FP) PO SCH (10:21)
[2019-05-03] MEDS: NICOTINE 14 MG/24 HOURS TOPICAL PATCH TD SCH (10:21)
[2019-05-03] MEDS: THIAMINE HCL 100 MG TABLET (FP) PO SCH (22:02)
[2019-05-03] MEDS: MELATONIN 5 MG TABLETS PO PRN (22:02)
[2019-05-04] MEDS ORDERED: LORazepam 0.5 MG TABLET PO PRN
[2019-05-04] MEDS: LORazepam 0.5 MG TABLET PO SCH ×4 (05:46→22:01)
[2019-05-04] MEDS ORDERED: METHADONE HCL 5 MG TABLET (FOR DETOX USE ONLY) ONE (09:54)
[2019-05-04] MEDS ORDERED: METHADONE HCL 10 MG TABLET (FOR DETOX USE ONLY) ONE (09:54)
--- NOTE | 2019-05-04 09:59 | PN ---
[facility] CIWA - CIWA Score Nausea/Vomitin-Mild Nausea/No Vomiting Muscle Tremors: 1-None Visible, but [place] Anxiety: 1-Mildly Anxious Agitation: 1-Slight > Activity Paroxysmal Sweats: No Perspiration Orientation: 0-Oriented Tacttile Disturbances: 1-Very Mild Itch/Numbness Auditory Disturbances: 0-None Visual Disturbances: 0-None Headache: 1-Very Mild CIWA-Ar Total Score: 6 BHS COWS - Scale Resting Pulse: 0= [place] 80 or Below Sweatin= No chills or Flushing Restless Observation: 1= Difficult to Sit Still Pupil Size: 1= Pupils >than Normal Bone or Joint Aches: 1= Mild Discomfort Runny Nose/ Eye Tearin= Nasal Congestion GI Upset > 30mins: 1= Stomach Cramp Tremor Observation of Outstretched Hands: 1= Tremor [place], Not Seen Yawning Observation: 1= 1-2x During Session Anxiety or Irritability: 2=Irritable/Anxious Goose Flesh Skin: 0=Smooth Skin COWS Score: 9 [facility] Progress Note (SOAP) Subjective: alert,irritable,anxious,interrupted sleep,pain in the body, Objective: 05/04/19 09:58 Vital Signs Temperature 97.7 F 05/04/19 09:57 Pulse Rate 72 05/04/19 09:57 Respiratory Rate 18 05/04/19 09:57 Blood Pressure 120/75 05/04/19 09:57 O2 Sat by Pulse Oximetry (%) Assessment: 05/04/19 09:58 withdrawal symptom Plan: continue detox methadone and ativan regimen
[2019-05-04] MEDS ORDERED: METHADONE (DETOX) 10 MG, METHADONE (DETOX) 5 MG PO ONE (10:00)
[2019-05-04] MEDS: NICOTINE 14 MG/24 HOURS TOPICAL PATCH TD SCH (10:39)
[2019-05-04] MEDS: PRENATAL VITAMINS W/ FOLIC ACID TABLET (FP) PO SCH (10:39)
[2019-05-04] MEDS: METHOCARBAMOL 500 MG TABLET PO PRN ×2 (10:42→22:02)
[2019-05-04] MEDS: THIAMINE HCL 100 MG TABLET (FP) PO SCH (22:01)
[2019-05-04] MEDS: MELATONIN 5 MG TABLETS PO PRN (22:01)
[2019-05-05] MEDS ORDERED: LORazepam 0.5 MG TABLET PO ONE (05:00)
[2019-05-05 09:31] VITALS: PULSE 67
--- NOTE | 2019-05-05 09:53 | PN ---
[facility] CIWA - CIWA Score Nausea/Vomitin-No Nausea/No Vomiting Muscle Tremors: None Anxiety: 2 Agitation: 0-Normal Activity Paroxysmal Sweats: 1-Minimal [place] Moist Orientation: 0-Oriented Tacttile Disturbances: 0-None Auditory Disturbances: 0-None Visual Disturbances: 0-None Headache: 0-None Present CIWA-Ar Total Score: 3 S COWS - Scale Resting Pulse: 0= [place] 80 or Below Sweatin= No chills or Flushing Restless Observation: 0= Sits Still Pupil Size: 0= Normal to Room Light Bone or Joint Aches: 2= Severe Diffuse Aches Runny Nose/ Eye Tearin= None GI Upset > 30mins: 0= None Tremor Observation of Outstretched Hands: 0= None Yawning Observation: 0= None Anxiety or Irritability: 2=Irritable/Anxious Goose Flesh Skin: 0=Smooth Skin COWS Score: 4 S Progress Note (SOAP) Subjective: c/o mild withdrawal symptoms. Objective: 05/05/19 09:50 Vital Signs 05/05/19 05/05/19 05/05/19 03:30 07:14 09:31 Temperature 97.3 F L 97.9 F Pulse Rate 66 67 Respiratory 18 18 18 Rate Blood Pressure 121/69 123/76 Assessment: 05/05/19 09:51 AOX3, in no acute respiratory distress. Full ROM, ambulating in the unit. Mild Withdrawal symptoms. For d/c tomorrow. Plan: Continue detox. D/C in AM.
[2019-05-05] MEDS ORDERED: METHADONE HCL 10 MG TABLET (FOR DETOX USE ONLY) PO ONE (10:00)
[2019-05-05] MEDS: NICOTINE 14 MG/24 HOURS TOPICAL PATCH TD SCH (10:05)
[2019-05-05] MEDS: PRENATAL VITAMINS W/ FOLIC ACID TABLET (FP) PO SCH (10:05)
[2019-05-05] MEDS: METHOCARBAMOL 500 MG TABLET PO PRN (10:07)
[2019-05-05 12:52] VITALS: BP 131/77; TEMP 98.1
--- NOTE | 2019-05-05 14:11 | DS ---
[facility] Detox Discharge Summary Admission Date: 05/01/19 Discharge Date: 05/05/19 - History Present History: Alcohol Dependence, Cocaine Dependence, Opioid Dependence Additional Comments: Pt is medically cleared and discharged today. Pt has one more day to complete the detox protocol and requested to be discharged today. Pt denies any withdrawal symptoms at the moment. Pt is encouraged to follow-up with an outpatient CD program and also to follow-up with his pmd. Pt verbalized understanding of the information given. Pt is alert and oriented x3 and in no acute respiratory distress. Pertinent Past History: h/o heroin, cocaine, and alcohol use disorder. - Physical Exam Results Vital Signs: Vital Signs Temperature 98.1 F 05/05/19 12:51 Pulse Rate 67 05/05/19 12:51 Respiratory Rate 18 05/05/19 12:51 Blood Pressure 131/77 05/05/19 12:51 O2 Sat by Pulse Oximetry (%) Vital Signs 05/05/19 05/05/19 05/05/19 07:14 09:31 12:51 Temperature 97.3 F L 97.9 F 98.1 F Pulse Rate 66 67 67 Respiratory 18 18 18 Rate Blood Pressure 121/69 123/76 131/77 Laboratory Last Values WBC 6.9 K/mm3 (4.0-10.0) 05/02/19 07:00 RBC 4.56 M/mm3 (4.00-5.60) 05/02/19 07:00 Hgb 13.2 GM/dL (11.7-16.9) 05/02/19 07:00 Hct 39.9 % (35.4-49) 05/02/19 07:00 MCV 87.4 fl (80-96) 05/02/19 07:00 MCH 28.8 pg (25.7-33.7) 05/02/19 07:00 MCHC 33.0 g/dl (32.0-35.9) 05/02/19 07:00 RDW 14.8 % (11.9-15.9) 05/02/19 07:00 Plt Count 286 K/MM3 (134-434) 05/02/19 07:00 MPV 10.9 fl (7.5-11.1) 05/02/19 07:00 Sodium 138 mmol/L (136-145) 05/02/19 07:00 Potassium 4.1 mmol/L (3.5-5.1) 05/02/19 07:00 Chloride 105 mmol/L (98-107) 05/02/19 07:00 Carbon Dioxide 28 mmol/L (21-32) 05/02/19 07:00 Anion Gap 4 MMOL/L (8-16) L 05/02/19 07:00 BUN 14.6 mg/dL (7-18) 05/02/19 07:00 Creatinine 0.8 mg/dL (0.55-1.3) 05/02/19 07:00 Est GFR (CKD-EPI)AfAm 130.42 05/02/19 07:00 Est GFR (CKD-EPI)NonAf 112.53 05/02/19 07:00 Random Glucose 87 mg/dL (74-106) 05/02/19 07:00 Calcium 8.3 mg/dL (8.5-10.1) L 05/02/19 07:00 Total Bilirubin 0.3 mg/dL (0.2-1) 05/02/19 07:00 AST 202 U/L (15-37) H 05/02/19 07:00 ALT 282 U/L (13-61) H 05/02/19 07:00 Alkaline Phosphatase 94 U/L (45-117) 05/02/19 07:00 Total Protein 7.0 g/dl (6.4-8.2) 05/02/19 07:00 Albumin 3.0 g/dl (3.4-5.0) L 05/02/19 07:00 Labs noted. Pertinent Admission Physical Exam Findings: withdrawal symptoms. - Treatment Hospital Course: Detox Protocol Followed, Detoxed Safely, Responded well, Discharged Condition Good - Diagnosis (1) Alcohol dependence with uncomplicated intoxication Current Visit: No Status: Acute (2) Elevated alanine aminotransferase (ALT) level Current Visit: No Status: Acute (3) Nicotine dependence Current Visit: No Status: Acute Qualifiers: Nicotine product type: cigarettes Substance use status: in withdrawal Qualified Code(s): F17.213 - Nicotine dependence, cigarettes, with withdrawal (4) Opioid dependence with withdrawal Current Visit: No Status: Acute (5) Nicotine dependence, uncomplicated Current Visit: No Status: Chronic Qualifiers: Nicotine product type: cigarettes Qualified Code(s): F17.210 - Nicotine dependence, cigarettes, uncomplicated (6) Opioid dependence Current Visit: No Status: Chronic Qualifiers: Substance use status: uncomplicated Qualified Code(s): F11.20 - Opioid dependence, uncomplicated - AMA Did Patient Leave Against Medical Advice: No
[2019-05-06 01:19] LABS: PH,URINE 6.5 (5.0-8.0); URINE APPEARANCE CLEAR; URINE BILIRUBIN NEGATIVE (NEGATIVE); URINE COLOR YELLOW; URINE GLUCOSE (UA) NEGATIVE (NEGATIVE); URINE KETONE NEGATIVE (NEGATIVE); URINE LEUK ESTERASE NEGATIVE (NEGATIVE); URINE NITRITE NEGATIVE (NEGATIVE); URINE PROTEIN NEGATIVE (NEGATIVE)
[2019-05-06] MEDS ORDERED: METHADONE HCL 5 MG TABLET (FOR DETOX USE ONLY) PO ONE (06:00)
== END 2019-05-05 14:30 | disposition home or self-care (01) | DRG 773 ==
LOC: YASAS 09:13 → Y6N 11:39
PROVIDERS: ADMIT Allergy & Immunology; ATTEND Allergy & Immunology
PROC: HZ2ZZZZ Detoxification Services for Substance Abuse Treatment (ICD-10-PCS; principal; 2019-05-01)
DX: F11.23 Opioid dependence with withdrawal (principal); F10.230 Alcohol dependence with withdrawal, uncomplicated; F17.213 Nicotine dependence, cigarettes, with withdrawal; R74.0 Nonspecific elevation of levels of transaminase and lactic acid dehydrogenase [LDH]; L30.9 Dermatitis, unspecified; L90.5 Scar conditions and fibrosis of skin; Z91.011 Allergy to milk products
CPT/HCPCS: 36415; 80053; 81003; 85027; J0735

== ENCOUNTER 2019-05-29 12:22 | Inpatient (IN) | payer OTHER ==
[2019-05-29 12:46] VITALS: BMI 24.0
--- NOTE | 2019-05-29 13:29 | HP ---
COWS - Scale Resting Pulse: 1= [place] 81-100 Sweatin=Flushed/Facial Moisture Restless Observation: 1= Difficult to Sit Still Pupil Size: 1= Pupils >than Normal Bone or Joint Aches: 2= Severe Diffuse Aches Runny Nose/ Eye Tearin= Nasal Congestion GI Upset > 30mins: 2= Nausea/Diarrhea Tremor Observation: 2= Slight Tremor Visible Yawning Observation: 1= 1-2x During Session Anxiety or Irritability: 1=Feels Anxious/Irritable Goose Flesh Skin: 3=[place] COWS Score: 17 CIWA Score Nausea/Vomitin Muscle Tremors: 2 Anxiety: 2 Agitation: 2 Paroxysmal Sweats: 2 Orientation: 1-Uncertain about Date Tacttile Disturbances: 2-Mild Itch/Numbness/Burn Auditory Disturbances: 0-None Visual Disturbances: 0-None Headache: 2-Mild CIWA-Ar Total Score: 15 - Admission Criteria [facility] Guidelines: Admission for Medically Managed Detox: Requires at least one of the followin. CIWA greater than 12 2. Seizures within the past 24 hours 3. Delirium tremens within the past 24 hours 4. Hallucinations within the past 24 hours 5. Acute intervention needed for co occurring medical disorder 6. Acute intervention needed for co occurring psychiatric disorder 7. Severe withdrawal that cannot be handled at a lower level of care (continued vomiting, continued diarrhea, abnormal vital signs) requiring intravenous medication and/or fluids 8. Patient presents the following: CIWA greater than 12 Admission Criteria Met: Admission criteria met Admitting History and Physical - Smoking History Smoking history: Current every day smoker Have you smoked in the past 12 months: No Aproximately how many cigarettes per day: 10 - Alcohol/Substance Use Hx Alcohol Use: Yes History of Substance Use: reports: Cocaine (Last use approx a week ago.), Heroin (Cuurent every day user. Approx a couple bags per day.) - Social History History of Recent Travel: No Admission ROS [facility] - HPI Chief Complaint: I like detox for drugs I am using Allergies/Adverse Reactions: Allergies Allergy/AdvReac Type Severity Reaction Status Date / Time No Known Drug Allergies Allergy Verified 05/29/19 12:38 lactose AdvReac Nausea Verified 05/29/19 12:38 History of Present Illness: Resident is a 38 year old man with polysubstance abuse and alcohol dependence who presents for detox. Patient is well known to this facility, his last admission was from 05/01/19 to 05/23/19. Exam Limitations: No Limitations - Ebola screening Have you traveled outside of the country in the last 21 days: No (N) Have you had contact with anyone from an Ebola affected area: No Have you been sick,other than usual withdrawal symptoms: No Do you have a fever: No - Review of Systems Constitutional: Chills, Changes in sleep EENT: reports: Blurred Vision, Nose Congestion, Dental Problems Respiratory: reports: No Symptoms reported Cardiac: reports: No Symptoms Reported GI: reports: Nausea, Poor Appetite, Poor Fluid Intake, Abdominal cramping : reports: No Symptoms Reported Musculoskeletal: reports: Back Pain, Joint Pain, Muscle Pain, Muscle Weakness Integumentary: reports: Flushing, Lesions Neuro: reports: Headache, Tremors Endocrine: reports: No Symptoms Reported Hematology: reports: No Symptoms Reported Psychiatric: reports: No Sypmtoms Reported Other Systems: Reviewed and Negative Patient History - Patient Medical History Hx Anemia: No Hx Asthma: No Hx Chronic Obstructive Pulmonary Disease (COPD): No Hx Cancer: No Hx Cardiac Disorders: No Hx Congestive Heart Failure: No Hx Hypertension: No Hx Hypercholesterolemia: No Hx Pacemaker: No HX Cerebrovascular Accident: No Hx Seizures: No Hx Dementia: No Hx Diabetes: No Hx Gastrointestinal Disorders: No Hx Liver Disease: No Hx Genitourinary Disorders: No Hx Sexually Transmitted Disorders: No Hx Renal Disease (ESRD): No Hx Thyroid Disease: No Hx Human Immunodeficiency Virus (HIV): No Hx Hepatitis C: No Hx Depression: No Hx Suicide Attempt: No Hx Bipolar Disorder: No Hx Schizophrenia: No - Patient Surgical History Past Surgical History: Yes Hx Neurologic Surgery: No Hx Cataract Extraction: No Hx Cardiac Surgery: No Hx Lung Surgery: No Hx Breast Surgery: No Hx Breast Biopsy: No Hx Abdominal Surgery: Yes ([facility]-1999) Hx Appendectomy: No Hx Cholecystectomy: No Hx Genitourinary Surgery: No Hx Section: No Hx Orthopedic Surgery: Yes (left femur: w in 1999 ) Other Surgical History: left leg maki in femur Anesthesia Reaction: No - PPD History Previous Implant?: Yes Documented Results: Negative w/proof Implanted On Prior [facility] Admission?: Yes Date: 04/02/19 Results: not read PPD to be Administered?: Yes - Smoking Cessation Smoking history: Current every day smoker Have you smoked in the past 12 months: Yes Aproximately how many cigarettes per day: 5 Cigars Per Day: 10 Hx Chewing Tobacco Use: No Initiated information on smoking cessation: Yes 'Breaking Loose' booklet given: 05/29/19 - Substances abused Alcohol Substance route: Oral Frequency: Daily Amount used: 1/2 pint of shivani Age of first use: 11 Date of last use: 05/28/19 Heroin Substance route: Injection Frequency: Daily Amount used: 10bags/day Age of first use: 33 Date of last use: 05/29/19 Admission Physical Exam [facility] - Vital Signs Vital Signs: Vital Signs - 24 hr 05/29/19 12:39 Temperature 97.4 F L Pulse Rate 90 Respiratory 18 Rate Blood Pressure 151/94 - Physical General Appearance: Yes: Disheveled, Sweating, Anxious HEENTM: Yes: Normal ENT Inspection, Normocephalic, Nasal Congestion Respiratory: Yes: Lungs Clear, Normal Breath Sounds, No Respiratory Distress, No Accessory Muscle Use Neck: Yes: No masses,lesions,Nodules, Supple Breast: Yes: Breast Exam Deferred Cardiology: Yes: Regular Rhythm, Regular Rate Abdominal: Yes: Normal Bowel Sounds, Non Tender, Soft Genitourinary: Yes: Within Normal Limits Back: Yes: Normal Inspection Musculoskeletal: Yes: Back pain, Muscle Pain, Muscle weakness Neurological: Yes: Alert, Normal Response Integumentary: Yes: Clammy, Track Swain, Other (fungal feet/ eczema to face) Lymphatic: Yes: Within Normal Limits - Diagnostic (1) Alcohol dependence with uncomplicated intoxication Current Visit: Yes Status: Acute (2) Insomnia Current Visit: Yes Status: Chronic Qualifiers: Insomnia type: primary Qualified Code(s): F51.01 - Primary insomnia (3) Nicotine dependence Current Visit: Yes Status: Acute Qualifiers: Nicotine product type: cigarettes Substance use status: uncomplicated Qualified Code(s): F17.210 - Nicotine dependence, cigarettes, uncomplicated (4) Opioid dependence with withdrawal Current Visit: Yes Status: Acute (5) Substance-induced sleep disorder Current Visit: Yes Status: Chronic (6) Cocaine dependence, uncomplicated Current Visit: Yes Status: Acute (7) 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 Current Visit: No Status: Chronic Cleared for Admission [facility] - Detox or Rehab [facility] Level of Care: Medically Managed Detox Regimen/Protocol: Methadone/Librium Claeared for Rehab Admission: No Breathalyzer - Breathalyzer Breathalyzer: 0 Urine Drug Screen - Test Device Lot number: [id number] Expiration date: 12/01/20 - Control Is test valid?: Yes - Results Drug screen NEGATIVE: No Urine drug screen results: [place]-Cocaine, MET-Methamphetamine, AMP-Amphetamines, FEN-Fentanyl, MOP-Opiates, MTD-Methadone, BZO-Benzodiazepines Inpatient Rehab Admission - Rehab Decision to Admit Inpatient rehab admission?: No
[2019-05-29] MEDS ORDERED: IBUPROFEN 400 MG TABLET (FP) PO PRN (13:34)
[2019-05-29] MEDS ORDERED: chlordiazePOXIDE HCL 10 MG CAPSULE PO PRN (13:34)
[2019-05-29] MEDS ORDERED: MENTHOL/PHENOL 1 EACH UD MM PRN (13:34)
[2019-05-29] MEDS ORDERED: MAG HYDROX/AL HYDROX/SIMETH 30 ML UNIT-DOSE CUP PO PRN (13:34)
[2019-05-29] MEDS ORDERED: NALOXONE HCL 0.4 MG/ML VIAL IM PRN (13:34)
[2019-05-29] MEDS ORDERED: ACETAMINOPHEN 325 MG TABLET (FP) PO PRN ×2 (13:34)
[2019-05-29] MEDS ORDERED: NICOTINE POLACRILEX 2 MG GUM BUC PRN (13:34)
[2019-05-29] MEDS ORDERED: METHADONE HCL 10 MG TABLET (FOR DETOX USE ONLY) PO ONE (13:34)
[2019-05-29] MEDS ORDERED: MAGNESIUM CITRATE 300 ML BOTTLE PO PRN (13:34)
[2019-05-29] MEDS ORDERED: chlordiazePOXIDE HCL 25 MG CAPSULE PO ONE (13:34)
[2019-05-29] MEDS ORDERED: BISMUTH SUBSALICYLATE 524 MG/30 ML UD PO PRN (13:34)
[2019-05-29] MEDS ORDERED: MAGNESIUM HYDROX 2400MG/30ML ORAL SUSPENSION 30 ML CUP PO PRN (13:34)
[2019-05-29] MEDS ORDERED: cloNIDine HCL 0.1 MG TABLET PO PRN (13:34)
[2019-05-29] MEDS: chlordiazePOXIDE HCL 25 MG CAPSULE PO SCH (22:23)
[2019-05-29] MEDS: THIAMINE HCL 100 MG TABLET (FP) PO SCH (22:23)
[2019-05-29] MEDS: MELATONIN 5 MG TABLETS PO PRN (22:26)
[2019-05-29] MEDS: TOLNAFTATE 1% POWDER 45 GM POW TP SCH (23:05)
[2019-05-30] MEDS: chlordiazePOXIDE HCL 25 MG CAPSULE PO SCH ×3 (06:04→22:17)
[2019-05-30] MEDS: METHOCARBAMOL 500 MG TABLET PO PRN ×2 (06:05→22:26)
[2019-05-30 09:37] LABS: HEMATOCRIT 41.6 % (35.4-49); MCH 29.5 pg (25.7-33.7); MCHC 33.6 g/dl (32.0-35.9); MEAN CELL VOLUME 87.8 fl (80-96); MEAN PLT VOLUME 10.2 fl (7.5-11.1); PLATELET COUNT 350 K/MM3 (134-434); RBC 4.74 M/mm3 (4.00-5.60); WHITE BLOOD COUNT 7.1 K/mm3 (4.0-10.0)
[2019-05-30 09:50] LABS: ALBUMIN 3.1 g/dl (3.4-5.0); BILIRUBIN,TOTAL 0.4 mg/dL (0.2-1); BLOOD UREA NITROGEN 14.1 mg/dL (7-18); CALCIUM 8.6 mg/dL (8.5-10.1); POTASSIUM 4.3 mmol/L (3.5-5.1); TOT PROT 7.3 g/dl (6.4-8.2)
[2019-05-30] MEDS ORDERED: METHADONE HCL 5 MG TABLET (FOR DETOX USE ONLY) PO ONE (10:00)
[2019-05-30] MEDS: TOLNAFTATE 1% POWDER 45 GM POW TP SCH ×2 (10:30→22:17)
--- NOTE | 2019-05-30 10:41 | PN ---
[facility] CIWA - CIWA Score Nausea/Vomitin-Mild Nausea/No Vomiting Muscle Tremors: None Anxiety: 1-Mildly Anxious Agitation: 0-Normal Activity Paroxysmal Sweats: No Perspiration Orientation: 0-Oriented Tacttile Disturbances: 2-Mild Itch/Numbness/Burn Auditory Disturbances: 0-None Visual Disturbances: 0-None Headache: 0-None Present CIWA-Ar Total Score: 4 S COWS - Scale Resting Pulse: 1= [place] 81-100 Sweatin= No chills or Flushing Restless Observation: 0= Sits Still Pupil Size: 0= Normal to Room Light Bone or Joint Aches: 1= Mild Discomfort Runny Nose/ Eye Tearin= None GI Upset > 30mins: 2= Nausea/Diarrhea Tremor Observation of Outstretched Hands: 0= None Yawning Observation: 0= None Anxiety or Irritability: 1=Feels Anxious/Irritable Goose Flesh Skin: 0=Smooth Skin COWS Score: 5 [facility] Progress Note (SOAP) Subjective: Complains of diarrhea, burning skin, body aches, cough Objective: Laboratory Last Values WBC 7.1 K/mm3 (4.0-10.0) 05/30/19 08:00 RBC 4.74 M/mm3 (4.00-5.60) 05/30/19 08:00 Hgb 14.0 GM/dL (11.7-16.9) 05/30/19 08:00 Hct 41.6 % (35.4-49) 05/30/19 08:00 MCV 87.8 fl (80-96) 05/30/19 08:00 MCH 29.5 pg (25.7-33.7) 05/30/19 08:00 MCHC 33.6 g/dl (32.0-35.9) 05/30/19 08:00 RDW 15.0 % (11.9-15.9) 05/30/19 08:00 Plt Count 350 K/MM3 (134-434) D 05/30/19 08:00 MPV 10.2 fl (7.5-11.1) 05/30/19 08:00 Sodium 137 mmol/L (136-145) 05/30/19 08:00 Potassium 4.3 mmol/L (3.5-5.1) 05/30/19 08:00 Chloride 105 mmol/L (98-107) 05/30/19 08:00 Carbon Dioxide 27 mmol/L (21-32) 05/30/19 08:00 Anion Gap 6 MMOL/L (8-16) L 05/30/19 08:00 BUN 14.1 mg/dL (7-18) 05/30/19 08:00 Creatinine 1.0 mg/dL (0.55-1.3) 05/30/19 08:00 Est GFR (CKD-EPI)AfAm 109.40 05/30/19 08:00 Est GFR (CKD-EPI)NonAf 94.39 05/30/19 08:00 Random Glucose 86 mg/dL (74-106) 05/30/19 08:00 Calcium 8.6 mg/dL (8.5-10.1) 05/30/19 08:00 Total Bilirubin 0.4 mg/dL (0.2-1) 05/30/19 08:00 AST 252 U/L (15-37) H 05/30/19 08:00 ALT 342 U/L (13-61) H 05/30/19 08:00 Alkaline Phosphatase 104 U/L (45-117) 05/30/19 08:00 Total Protein 7.3 g/dl (6.4-8.2) 05/30/19 08:00 Albumin 3.1 g/dl (3.4-5.0) L 05/30/19 08:00 Vital Signs Temperature 98.8 F 05/30/19 09:56 Pulse Rate 88 05/30/19 09:56 Respiratory Rate 19 05/30/19 09:56 Blood Pressure 156/98 05/30/19 09:56 O2 Sat by Pulse Oximetry (%) 05/30/19 10:38 Gnl: WDWN, in no distress Mental status: awake, alert, follows complex commands Motor: moves all limbs well Resp: dry cough 05/30/19 10:41 Assessment: 05/30/19 10:39 1. Alcohol withdrawal, elevated LFTs 2. Opioid withdrawal 3. Dry cough 05/30/19 10:41 Plan: 1. continue alcohol withdrawal protocol, follow LFTs 2. continue opioid withdrawal protocol 3. Robitussin prn cough 4. Robaxin for aches
[2019-05-30] MEDS: PRENATAL VITAMINS W/ FOLIC ACID TABLET (FP) PO SCH (10:51)
--- NOTE | 2019-05-30 14:21 | EKG ---
Test Reason : Blood Pressure : / mmHG Vent. Rate : 083 BPM Atrial Rate : 083 BPM P-R Int : 156 ms QRS Dur : 090 ms QT Int : 404 ms P-R-T Axes : 063 037 035 degrees QTc Int : 474 ms NORMAL SINUS RHYTHM NORMAL ECG WHEN COMPARED WITH ECG OF 22-FEB-2018 17:25, QT HAS LENGTHENED Confirmed by Gregory Carballo ([id number]) on 05/30/2019 2:21:40 PM Referred By: Confirmed By:Gregory Carballo
[2019-05-30] MEDS: THIAMINE HCL 100 MG TABLET (FP) PO SCH (22:17)
[2019-05-30] MEDS: MELATONIN 5 MG TABLETS PO PRN (22:20)
[2019-05-31] MEDS: chlordiazePOXIDE 5 MG CAPSULE PO SCH ×3 (05:38→22:21)
[2019-05-31] MEDS ORDERED: METHADONE HCL 10 MG TABLET (FOR DETOX USE ONLY) PO ONE (10:00)
[2019-05-31] MEDS: TOLNAFTATE 1% POWDER 45 GM POW TP SCH ×2 (10:32→23:36)
[2019-05-31] MEDS: PRENATAL VITAMINS W/ FOLIC ACID TABLET (FP) PO SCH (10:33)
--- NOTE | 2019-05-31 11:54 | PN ---
[facility] CIWA - CIWA Score Nausea/Vomitin-No Nausea/No Vomiting Muscle Tremors: 2 Anxiety: 1-Mildly Anxious Agitation: 1-Slight > Activity Paroxysmal Sweats: No Perspiration Orientation: 0-Oriented Tacttile Disturbances: 0-None Auditory Disturbances: 0-None Visual Disturbances: 0-None Headache: 0-None Present CIWA-Ar Total Score: 4 BHS COWS - Scale Resting Pulse: 1= [place] 81-100 Sweatin= Chills/Flushing Restless Observation: 0= Sits Still Pupil Size: 0= Normal to Room Light Bone or Joint Aches: 1= Mild Discomfort Runny Nose/ Eye Tearin= None GI Upset > 30mins: 0= None Tremor Observation of Outstretched Hands: 1= Tremor [place], Not Seen Yawning Observation: 1= 1-2x During Session Anxiety or Irritability: 1=Feels Anxious/Irritable Goose Flesh Skin: 0=Smooth Skin COWS Score: 6 [facility] Progress Note (SOAP) Subjective: tired sweats i want ensure Objective: 05/31/19 11:53 Vital Signs Temperature 97.7 F 05/31/19 09:17 Pulse Rate 85 05/31/19 09:17 Respiratory Rate 17 05/31/19 09:17 Blood Pressure 136/84 05/31/19 09:17 O2 Sat by Pulse Oximetry (%) Laboratory Tests 05/30/19 05/30/19 05/30/19 08:00 08:00 08:00 WBC 7.1 RBC 4.74 Hgb 14.0 Hct 41.6 MCV 87.8 MCH 29.5 MCHC 33.6 RDW 15.0 Plt Count 350 D MPV 10.2 Sodium 137 Potassium 4.3 Chloride 105 Carbon Dioxide 27 Anion Gap 6 L BUN 14.1 Creatinine 1.0 Est GFR (CKD-EPI)AfAm 109.40 Est GFR (CKD-EPI)NonAf 94.39 Random Glucose 86 Calcium 8.6 Total Bilirubin 0.4 AST 252 H ALT 342 H Alkaline Phosphatase 104 Total Protein 7.3 Albumin 3.1 L RPR Titer Nonreactive elevated liver enzymes repeat labs today aaox3 lying in bed no acute distress Assessment: 05/31/19 11:54 withdrawals Plan: continue detox repeat labs today d/c tylenol d/c in am
[2019-05-31 17:57] LABS: SGOT/AST 215 U/L (15-37); SGPT/ALT 352 U/L (13-61)
[2019-05-31 18:03] LABS: INR 1.05 (0.83-1.09); PROTHROMBIN TIME (PATIENT) 12.4 SEC (9.7-13.0)
[2019-05-31] MEDS: MELATONIN 5 MG TABLETS PO PRN (22:21)
[2019-05-31] MEDS: THIAMINE HCL 100 MG TABLET (FP) PO SCH (22:21)
[2019-06-01] MEDS ORDERED: chlordiazePOXIDE HCL 10 MG CAPSULE PO PRN
[2019-06-01] MEDS: chlordiazePOXIDE HCL 10 MG CAPSULE PO SCH ×3 (05:55→21:34)
[2019-06-01] MEDS ORDERED: METHADONE HCL 5 MG TABLET (FOR DETOX USE ONLY) PO ONE (06:00)
--- NOTE | 2019-06-01 09:47 | DS ---
[facility] Detox Discharge Summary Admission Date: 05/29/19 Discharge Date: 06/01/19 - History Present History: Alcohol Dependence, Cannabis Dependence, Cocaine Dependence, Opioid Dependence - Physical Exam Results Vital Signs: Vital Signs Temperature 98.2 F 06/01/19 09:20 Pulse Rate 83 06/01/19 09:20 Respiratory Rate 06/01/19 09:20 Blood Pressure 140/79 06/01/19 09:20 O2 Sat by Pulse Oximetry (%) Pertinent Admission Physical Exam Findings: Vital Signs Temperature 98.2 F 06/01/19 09:20 Pulse Rate 83 06/01/19 09:20 Respiratory Rate 06/01/19 09:20 Blood Pressure 140/79 06/01/19 09:20 O2 Sat by Pulse Oximetry (%) Laboratory Tests 05/30/19 05/30/19 05/30/19 08:00 08:00 08:00 WBC 7.1 RBC 4.74 Hgb 14.0 Hct 41.6 MCV 87.8 MCH 29.5 MCHC 33.6 RDW 15.0 Plt Count 350 D MPV 10.2 PT with INR INR Sodium 137 Potassium 4.3 Chloride 105 Carbon Dioxide 27 Anion Gap 6 L BUN 14.1 Creatinine 1.0 Est GFR (CKD-EPI)AfAm 109.40 Est GFR (CKD-EPI)NonAf 94.39 Random Glucose 86 Calcium 8.6 Total Bilirubin 0.4 AST 252 H ALT 342 H Alkaline Phosphatase 104 Total Protein 7.3 Albumin 3.1 L RPR Titer Nonreactive 05/31/19 05/31/19 13:00 13:00 WBC RBC Hgb Hct MCV MCH MCHC RDW Plt Count MPV PT with INR 12.40 INR 1.05 Sodium Potassium Chloride Carbon Dioxide Anion Gap BUN Creatinine Est GFR (CKD-EPI)AfAm Est GFR (CKD-EPI)NonAf Random Glucose Calcium Total Bilirubin AST 215 H ALT 352 H Alkaline Phosphatase Total Protein Albumin RPR Titer aaox3 ambulating no acute distress - Treatment Hospital Course: Detox Protocol Followed, Detoxed Safely, Responded well, Discharged Condition Good, Rehab Referral Accepted - Medication Discharge Medications: Ambulatory Orders NK [No Known Home Medication] 05/29/19 - Diagnosis (1) Alcohol dependence with uncomplicated intoxication Current Visit: Yes Status: Chronic (2) Cocaine dependence, uncomplicated Current Visit: Yes Status: Chronic (3) Nicotine dependence Current Visit: Yes Status: Acute Qualifiers: Nicotine product type: cigarettes Substance use status: uncomplicated Qualified Code(s): F17.210 - Nicotine dependence, cigarettes, uncomplicated (4) Opioid dependence with withdrawal Current Visit: Yes Status: Chronic (5) Insomnia Current Visit: Yes Status: Chronic Qualifiers: Insomnia type: primary Qualified Code(s): F51.01 - Primary insomnia (6) Substance-induced sleep disorder Current Visit: Yes Status: Chronic (7) Elevated alanine aminotransferase (ALT) level Current Visit: No Status: Acute (8) Hyperglycemia Current Visit: No Status: Acute (9) Weight loss Current Visit: No Status: Acute (10) Bipolar disorder Current Visit: No Status: Chronic (11) Eczema Current Visit: No Status: Chronic Qualifiers: Eczema type: unspecified Qualified Code(s): L30.9 - Dermatitis, unspecified (12) Elevated aspartate aminotransferase level Current Visit: No Status: Chronic (13) History of depression Current Visit: No Status: Chronic (14) History of schizophrenia Current Visit: No Status: Chronic (15) IVDU (intravenous drug user) Current Visit: No Status: Chronic (16) Nicotine dependence, uncomplicated Current Visit: No Status: Chronic Qualifiers: Nicotine product type: cigarettes Qualified Code(s): F17.210 - Nicotine dependence, cigarettes, uncomplicated (17) Opioid dependence Current Visit: No Status: Chronic Qualifiers: Substance use status: uncomplicated Qualified Code(s): F11.20 - Opioid dependence, uncomplicated (18) Post-traumatic stress disorder Current Visit: No Status: Chronic (19) Schizoaffective disorder Current Visit: No Status: Chronic Qualifiers: Schizoaffective disorder type: unspecified Qualified Code(s): F25.9 - Schizoaffective disorder, unspecified (20) 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
--- NOTE | 2019-06-01 10:24 | PN ---
S Progress Note Note: pt completes his detox tomorrow. pt will remain until then and will be d/c in am
--- NOTE | 2019-06-01 10:26 | PN ---
[facility] CIWA - CIWA Score Nausea/Vomitin-No Nausea/No Vomiting Muscle Tremors: 2 Anxiety: 0-No Anxiety, at Ease Agitation: 1-Slight > Activity Paroxysmal Sweats: 1-Minimal Palms Moist Orientation: 0-Oriented Tacttile Disturbances: 0-None Auditory Disturbances: 0-None Visual Disturbances: 0-None Headache: 0-None Present CIWA-Ar Total Score: 4 S COWS - Scale Resting Pulse: 1= FL 81-100 Sweatin= Chills/Flushing Restless Observation: 0= Sits Still Pupil Size: 0= Normal to Room Light Bone or Joint Aches: 1= Mild Discomfort Runny Nose/ Eye Tearin= None GI Upset > 30mins: 0= None Tremor Observation of Outstretched Hands: 0= None Yawning Observation: 0= None Anxiety or Irritability: 0= None Goose Flesh Skin: 0=Smooth Skin COWS Score: 3 [facility] Progress Note (SOAP) Subjective: sweats shakes interrupted sleep Objective: 06/01/19 10:25 Vital Signs Temperature 98.2 F 06/01/19 09:20 Pulse Rate 83 06/01/19 09:20 Respiratory Rate 19 06/01/19 09:20 Blood Pressure 140/79 06/01/19 09:20 O2 Sat by Pulse Oximetry (%) aaox3 ambulating no acute distress Assessment: 06/01/19 10:26 mild withdrawals Plan: d/c in am
[2019-06-01] MEDS: PRENATAL VITAMINS W/ FOLIC ACID TABLET (FP) PO SCH (10:33)
[2019-06-01] MEDS: TOLNAFTATE 1% POWDER 45 GM POW TP SCH ×2 (10:34→21:41)
[2019-06-01] MEDS: METHOCARBAMOL 500 MG TABLET PO PRN (10:34)
--- NOTE | 2019-06-01 16:58 | PN ---
[facility] Progress Note Note: per nursing , pt requesting ensure w/ meals , no other complaints. P : added ensure bid w/ meals .
[2019-06-01] MEDS: THIAMINE HCL 100 MG TABLET (FP) PO SCH (21:34)
[2019-06-01] MEDS: MELATONIN 5 MG TABLETS PO PRN (21:36)
[2019-06-01] MEDS: guaiFENesin 200 MG/10 ML 10 ML UNIT-DOSE CUPS PO PRN (21:39)
[2019-06-02] MEDS ORDERED: chlordiazePOXIDE HCL 10 MG CAPSULE PO ONE (05:00)
[2019-06-02] MEDS: guaiFENesin 200 MG/10 ML 10 ML UNIT-DOSE CUPS PO PRN ×2 (06:07→10:34)
--- NOTE | 2019-06-02 08:16 | DS ---
[facility] Detox Discharge Summary Admission Date: 05/29/19 Discharge Date: 06/02/19 - History Present History: Alcohol Dependence, Cocaine Dependence, Opioid Dependence - Physical Exam Results Vital Signs: Vital Signs Temperature 97.9 F 06/01/19 21:44 Pulse Rate 79 06/01/19 21:44 Respiratory Rate 18 06/02/19 03:30 Blood Pressure 146/88 06/01/19 21:44 O2 Sat by Pulse Oximetry (%) Pertinent Admission Physical Exam Findings: Vital Signs Temperature 97.9 F 06/01/19 21:44 Pulse Rate 79 06/01/19 21:44 Respiratory Rate 18 06/02/19 03:30 Blood Pressure 146/88 06/01/19 21:44 O2 Sat by Pulse Oximetry (%) Laboratory Tests 05/30/19 05/30/19 05/30/19 08:00 08:00 08:00 WBC 7.1 RBC 4.74 Hgb 14.0 Hct 41.6 MCV 87.8 MCH 29.5 MCHC 33.6 RDW 15.0 Plt Count 350 D MPV 10.2 PT with INR INR Sodium 137 Potassium 4.3 Chloride 105 Carbon Dioxide 27 Anion Gap 6 L BUN 14.1 Creatinine 1.0 Est GFR (CKD-EPI)AfAm 109.40 Est GFR (CKD-EPI)NonAf 94.39 Random Glucose 86 Calcium 8.6 Total Bilirubin 0.4 AST 252 H ALT 342 H Alkaline Phosphatase 104 Total Protein 7.3 Albumin 3.1 L RPR Titer Nonreactive 05/31/19 05/31/19 13:00 13:00 WBC RBC Hgb Hct MCV MCH MCHC RDW Plt Count MPV PT with INR 12.40 INR 1.05 Sodium Potassium Chloride Carbon Dioxide Anion Gap BUN Creatinine Est GFR (CKD-EPI)AfAm Est GFR (CKD-EPI)NonAf Random Glucose Calcium Total Bilirubin AST 215 H ALT 352 H Alkaline Phosphatase Total Protein Albumin RPR Titer AAOX3 AMBULATING NO ACUTE DISTRESS - Treatment Hospital Course: Detox Protocol Followed, Detoxed Safely, Responded well, Discharged Condition Good, Rehab Referral Accepted - Medication Discharge Medications: Ambulatory Orders NK [No Known Home Medication] 05/29/19 - Diagnosis (1) Alcohol dependence with uncomplicated intoxication Current Visit: Yes Status: Chronic (2) Cocaine dependence, uncomplicated Current Visit: Yes Status: Chronic (3) Nicotine dependence Current Visit: Yes Status: Acute Qualifiers: Nicotine product type: cigarettes Substance use status: uncomplicated Qualified Code(s): F17.210 - Nicotine dependence, cigarettes, uncomplicated (4) Opioid dependence with withdrawal Current Visit: Yes Status: Chronic (5) Insomnia Current Visit: Yes Status: Chronic Qualifiers: Insomnia type: primary Qualified Code(s): F51.01 - Primary insomnia (6) Substance-induced sleep disorder Current Visit: Yes Status: Chronic (7) Elevated alanine aminotransferase (ALT) level Current Visit: No Status: Acute (8) Hyperglycemia Current Visit: No Status: Acute (9) Weight loss Current Visit: No Status: Acute (10) Bipolar disorder Current Visit: No Status: Chronic (11) Eczema Current Visit: No Status: Chronic Qualifiers: Eczema type: unspecified Qualified Code(s): L30.9 - Dermatitis, unspecified (12) Elevated aspartate aminotransferase level Current Visit: No Status: Chronic (13) History of depression Current Visit: No Status: Chronic (14) History of schizophrenia Current Visit: No Status: Chronic (15) IVDU (intravenous drug user) Current Visit: No Status: Chronic (16) Nicotine dependence, uncomplicated Current Visit: No Status: Chronic Qualifiers: Nicotine product type: cigarettes Qualified Code(s): F17.210 - Nicotine dependence, cigarettes, uncomplicated (17) Opioid dependence Current Visit: No Status: Chronic Qualifiers: Substance use status: uncomplicated Qualified Code(s): F11.20 - Opioid dependence, uncomplicated (18) Post-traumatic stress disorder Current Visit: No Status: Chronic (19) Schizoaffective disorder Current Visit: No Status: Chronic Qualifiers: Schizoaffective disorder type: unspecified Qualified Code(s): F25.9 - Schizoaffective disorder, unspecified (20) 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
[2019-06-02 09:29] VITALS: BP 146/83; PULSE 84; TEMP 98.1
[2019-06-02] MEDS: PRENATAL VITAMINS W/ FOLIC ACID TABLET (FP) PO SCH (10:35)
[2019-06-02] MEDS: TOLNAFTATE 1% POWDER 45 GM POW TP SCH (10:35)
[2019-06-04] MEDS ORDERED: ALBUTEROL SO4 HFA INHALER IH PRN (02:19)
--- NOTE | 2019-06-04 02:23 | PN ---
[facility] Progress Note Note: Patient complains of SOB and reports history of asthma which he did not disclose on admission Vital Signs Temperature 98.1 F 06/02/19 09:29 Pulse Rate 84 06/02/19 09:29 Respiratory Rate 17 06/02/19 09:29 Blood Pressure 146/83 06/02/19 09:29 O2 Sat by Pulse Oximetry (%) Action: Albuterol inhaler 2 puffs inhalation Q4H prn ordered
== END 2019-06-02 12:45 | disposition home or self-care (01) | DRG 773 ==
LOC: YASAS 12:22 → Y6N 14:51
PROVIDERS: ADMIT Allergy & Immunology; ATTEND Allergy & Immunology
PROC: HZ2ZZZZ Detoxification Services for Substance Abuse Treatment (ICD-10-PCS; principal; 2019-05-29)
DX: F11.23 Opioid dependence with withdrawal (principal); F10.230 Alcohol dependence with withdrawal, uncomplicated; F14.20 Cocaine dependence, uncomplicated; F17.210 Nicotine dependence, cigarettes, uncomplicated; F51.01 Primary insomnia; F19.24 Other psychoactive substance dependence with psychoactive substance-induced mood disorder; F19.282 Other psychoactive substance dependence with psychoactive substance-induced sleep disorder; F43.10 Post-traumatic stress disorder, unspecified; F25.9 Schizoaffective disorder, unspecified; R74.0 Nonspecific elevation of levels of transaminase and lactic acid dehydrogenase [LDH]; R73.9 Hyperglycemia, unspecified; R63.4 Abnormal weight loss; R05 Cough; L30.9 Dermatitis, unspecified; L90.5 Scar conditions and fibrosis of skin; Z91.011 Allergy to milk products
CPT/HCPCS: 36415; 80053; 84450; 84460; 85027; 85610; 86593; 93005; 93010; J0735

== ENCOUNTER 2019-06-02 12:49 | Inpatient (IN) | payer OTHER ==
[2019-06-02] MEDS ORDERED: MAG HYDROX/AL HYDROX/SIMETH 30 ML UNIT-DOSE CUP PO PRN (13:39)
[2019-06-02] MEDS ORDERED: IBUPROFEN 400 MG TABLET (FP) PO PRN (13:39)
[2019-06-02] MEDS ORDERED: MAGNESIUM HYDROX 2400MG/30ML ORAL SUSPENSION 30 ML CUP PO PRN (13:39)
[2019-06-02] MEDS ORDERED: ACETAMINOPHEN 325 MG TABLET (FP) PO PRN (13:39)
[2019-06-02] MEDS ORDERED: MAGNESIUM CITRATE 300 ML BOTTLE PO PRN (13:39)
[2019-06-02] MEDS ORDERED: LOPERAMIDE HCL 2 MG CAPSULE PO PRN (13:39)
--- NOTE | 2019-06-02 13:46 | PN ---
[facility] Progress Note Note: Patient admitted to [facility] from detox. Problem list reviewed, labs reviewed, home medications reviewed. P/E: General: no apparent distress HEENTM: normocephalic, PERRLA NEck: supple Lungs: clear Heart: s1 s2 MSK: full weight bearing Full ROM Neuro: CN 2-12 intact A/P: Continue rehab for opioid, cocaine, and ETOH dependance. maintain safety
[2019-06-02] MEDS: guaiFENesin 200 MG/10 ML 10 ML UNIT-DOSE CUPS PO PRN (18:16)
[2019-06-02] MEDS: MENTHOL/PHENOL 1 EACH UD MM PRN (19:38)
[2019-06-02] MEDS: MELATONIN 5 MG TABLETS PO PRN (21:17)
[2019-06-02] MEDS: hydrOXYzine PAMOATE 50 MG CAPSULE (FP) PO PRN (21:17)
[2019-06-02] MEDS: THIAMINE HCL 100 MG TABLET (FP) PO SCH (21:17)
[2019-06-03] MEDS: guaiFENesin 200 MG/10 ML 10 ML UNIT-DOSE CUPS PO PRN ×4 (00:35→21:16)
[2019-06-03] MEDS: PRENATAL VITAMINS W/ FOLIC ACID TABLET (FP) PO SCH (09:27)
--- NOTE | 2019-06-03 13:27 | HP ---
[facility] Rehab Assess/Revision - Admission History Admitted to Rehab from: [facility] [address] [place] [address] - Vital signs Vital Signs: Vital Signs Period Temp Pulse Resp BP Sys/Sterling Pulse Ox Last 24 Hr 97.7 F 79 18-20 134/88 - Findings Detox History & Physical reviewed: Yes Concur with findings: Yes Inpatient Rehab Admission - Rehab Decision to Admit Inpatient rehab admission?: Yes - Initial Determination Are CD services needed?: Yes Free of communicable disease: Yes Not in need of hospitalization: Yes - Rehab Admission Criteria Previous failed treatment: Yes Poor recovery environment: Yes Comorbidities: Yes Lacks judgement: No Patient is meeting Inpatient Rehab admission criteria:: Yes
[2019-06-03] MEDS: MENTHOL/PHENOL 1 EACH UD MM PRN ×2 (14:44→21:18)
[2019-06-03] MEDS: MELATONIN 5 MG TABLETS PO PRN (21:15)
[2019-06-03] MEDS: THIAMINE HCL 100 MG TABLET (FP) PO SCH (21:15)
[2019-06-03] MEDS: hydrOXYzine PAMOATE 50 MG CAPSULE (FP) PO PRN (21:16)
[2019-06-04] MEDS: P-EPHED 60MG/TRIPROLIDI 2.5MG TABLET PO PRN ×2 (02:20→21:26)
[2019-06-04] MEDS: ALBUTEROL SO4 HFA INHALER IH PRN ×5 (02:55→21:26)
[2019-06-04] MEDS: guaiFENesin 200 MG/10 ML 10 ML UNIT-DOSE CUPS PO PRN ×3 (06:22→21:25)
[2019-06-04] MEDS: PRENATAL VITAMINS W/ FOLIC ACID TABLET (FP) PO SCH (10:00)
[2019-06-04 10:44] LABS: ALBUMIN 3.2 g/dl (3.4-5.0); BILIRUBIN,TOTAL 0.4 mg/dL (0.2-1); BLOOD UREA NITROGEN 11.6 mg/dL (7-18); CALCIUM 8.8 mg/dL (8.5-10.1); POTASSIUM 4.2 mmol/L (3.5-5.1); TOT PROT 7.8 g/dl (6.4-8.2)
[2019-06-04] MEDS: THIAMINE HCL 100 MG TABLET (FP) PO SCH (21:25)
[2019-06-04] MEDS: MELATONIN 5 MG TABLETS PO PRN (21:26)
[2019-06-05] MEDS: ALBUTEROL SO4 HFA INHALER IH PRN ×3 (04:41→17:51)
[2019-06-05] MEDS: guaiFENesin 200 MG/10 ML 10 ML UNIT-DOSE CUPS PO PRN ×2 (04:43→21:24)
[2019-06-05] MEDS: PRENATAL VITAMINS W/ FOLIC ACID TABLET (FP) PO SCH (10:16)
[2019-06-05] MEDS: MENTHOL/PHENOL 1 EACH UD MM PRN (10:18)
[2019-06-05] MEDS: MELATONIN 5 MG TABLETS PO PRN (21:23)
[2019-06-05] MEDS: THIAMINE HCL 100 MG TABLET (FP) PO SCH (21:23)
[2019-06-05] MEDS: hydrOXYzine PAMOATE 50 MG CAPSULE (FP) PO PRN (21:24)
[2019-06-06] MEDS: guaiFENesin 200 MG/10 ML 10 ML UNIT-DOSE CUPS PO PRN ×3 (06:39→21:15)
[2019-06-06] MEDS: PRENATAL VITAMINS W/ FOLIC ACID TABLET (FP) PO SCH (10:15)
[2019-06-06] MEDS: ALBUTEROL SO4 HFA INHALER IH PRN (10:32)
[2019-06-06] MEDS: P-EPHED 60MG/TRIPROLIDI 2.5MG TABLET PO PRN (10:34)
[2019-06-06] MEDS: MENTHOL/PHENOL 1 EACH UD MM PRN (10:34)
--- NOTE | 2019-06-06 18:43 | PN ---
[facility] Progress Note Note: Laboratory Tests 06/03/19 06/04/19 08:30 07:30 Sodium 138 Potassium 4.2 Chloride 104 Carbon Dioxide 28 Anion Gap 6 L BUN 11.6 Creatinine 1.0 Est GFR (CKD-EPI)AfAm 109.40 Est GFR (CKD-EPI)NonAf 94.39 Random Glucose 79 Calcium 8.8 Total Bilirubin 0.4 AST 244 H ALT 410 H Alkaline Phosphatase 87 Total Protein 7.8 Albumin 3.2 L HIV 1&2 Ag/Ab, 4th Gen Non reactive Vital Signs Period Temp Pulse Resp BP Sys/Sterling Pulse Ox Last 24 Hr 97.7 F 78 18-18 146/90 Labs reviewed. Elevated LFTS. Hx of Alcohol dependence. Will order PT/INR, ammonia level, cmp cal am.
[2019-06-06] MEDS: hydrOXYzine PAMOATE 50 MG CAPSULE (FP) PO PRN (21:13)
[2019-06-06] MEDS: MELATONIN 5 MG TABLETS PO PRN (21:13)
[2019-06-06] MEDS: THIAMINE HCL 100 MG TABLET (FP) PO SCH (21:13)
[2019-06-06] MEDS: TOLNAFTATE 1% CREAM 15 GM TUBE TP SCH (21:14)
[2019-06-07] MEDS: guaiFENesin 200 MG/10 ML 10 ML UNIT-DOSE CUPS PO PRN ×2 (04:12→21:11)
[2019-06-07] MEDS: ALBUTEROL SO4 HFA INHALER IH PRN (04:13)
[2019-06-07] MEDS ORDERED: AMMONIUM LACTATE 12% LOTION 225 GM BOTTLE TP PRN (09:12)
[2019-06-07] MEDS: PRENATAL VITAMINS W/ FOLIC ACID TABLET (FP) PO SCH (10:57)
[2019-06-07] MEDS: TOLNAFTATE 1% CREAM 15 GM TUBE TP SCH ×2 (10:59→21:12)
[2019-06-07] MEDS: HYDROCORTISONE 1% TOPICAL OINT 30 GM TUBE TP SCH ×2 (10:59→21:12)
[2019-06-07] MEDS: THIAMINE HCL 100 MG TABLET (FP) PO SCH (21:10)
[2019-06-07] MEDS: MELATONIN 5 MG TABLETS PO PRN (21:10)
[2019-06-07] MEDS: hydrOXYzine PAMOATE 50 MG CAPSULE (FP) PO PRN (21:10)
[2019-06-08] MEDS: TOLNAFTATE 1% CREAM 15 GM TUBE TP SCH ×2 (10:06→21:15)
[2019-06-08] MEDS: PRENATAL VITAMINS W/ FOLIC ACID TABLET (FP) PO SCH (10:06)
[2019-06-08] MEDS: HYDROCORTISONE 1% TOPICAL OINT 30 GM TUBE TP SCH ×2 (10:07→21:15)
[2019-06-08] MEDS: hydrOXYzine PAMOATE 50 MG CAPSULE (FP) PO PRN (21:14)
[2019-06-08] MEDS: MELATONIN 5 MG TABLETS PO PRN (21:14)
[2019-06-08] MEDS: THIAMINE HCL 100 MG TABLET (FP) PO SCH (21:14)
[2019-06-08] MEDS: guaiFENesin 200 MG/10 ML 10 ML UNIT-DOSE CUPS PO PRN (21:15)
[2019-06-09] MEDS: PRENATAL VITAMINS W/ FOLIC ACID TABLET (FP) PO SCH (09:59)
[2019-06-09] MEDS: TOLNAFTATE 1% CREAM 15 GM TUBE TP SCH ×2 (10:00→21:28)
[2019-06-09] MEDS: HYDROCORTISONE 1% TOPICAL OINT 30 GM TUBE TP SCH ×2 (10:00→21:28)
[2019-06-09] MEDS ORDERED: PT OWN MED DRAWER 7, Y5N ONE (10:01)
[2019-06-09] MEDS: guaiFENesin 200 MG/10 ML 10 ML UNIT-DOSE CUPS PO PRN (21:29)
[2019-06-09] MEDS: diphenhydrAMINE HCL 50 MG CAPSULE PO PRN (21:29)
[2019-06-09] MEDS: MELATONIN 5 MG TABLETS PO PRN (21:30)
[2019-06-09] MEDS: THIAMINE HCL 100 MG TABLET (FP) PO SCH (21:30)
[2019-06-10] MEDS: guaiFENesin 200 MG/10 ML 10 ML UNIT-DOSE CUPS PO PRN ×2 (05:54→17:57)
[2019-06-10] MEDS ORDERED: ALBUTEROL SO4 HFA INHALER IH PRN (09:14)
[2019-06-10] MEDS: PRENATAL VITAMINS W/ FOLIC ACID TABLET (FP) PO SCH (10:11)
[2019-06-10] MEDS: HYDROCORTISONE 1% TOPICAL OINT 30 GM TUBE TP SCH ×2 (10:12→21:24)
[2019-06-10] MEDS: TOLNAFTATE 1% CREAM 15 GM TUBE TP SCH ×2 (10:12→21:24)
[2019-06-10] MEDS: P-EPHED 60MG/TRIPROLIDI 2.5MG TABLET PO PRN (17:57)
[2019-06-10] MEDS: MELATONIN 5 MG TABLETS PO PRN (21:21)
[2019-06-10] MEDS: THIAMINE HCL 100 MG TABLET (FP) PO SCH (21:21)
[2019-06-10] MEDS: diphenhydrAMINE HCL 50 MG CAPSULE PO PRN (21:23)
[2019-06-10] MEDS: MENTHOL/PHENOL 1 EACH UD MM PRN (21:24)
[2019-06-11] MEDS: guaiFENesin 200 MG/10 ML 10 ML UNIT-DOSE CUPS PO PRN ×2 (01:45→21:22)
[2019-06-11] MEDS ORDERED: PT OWN MED DRAWER 7, Y5N ONE (08:53)
[2019-06-11] MEDS: HYDROCORTISONE 1% TOPICAL OINT 30 GM TUBE TP SCH ×2 (09:57→21:23)
[2019-06-11] MEDS: TOLNAFTATE 1% CREAM 15 GM TUBE TP SCH ×2 (09:57→21:23)
[2019-06-11] MEDS: PRENATAL VITAMINS W/ FOLIC ACID TABLET (FP) PO SCH (09:57)
[2019-06-11] MEDS: MELATONIN 5 MG TABLETS PO PRN (21:21)
[2019-06-11] MEDS: THIAMINE HCL 100 MG TABLET (FP) PO SCH (21:21)
[2019-06-11] MEDS: diphenhydrAMINE HCL 50 MG CAPSULE PO PRN (21:21)
[2019-06-12 08:25] VITALS: PULSE 81; TEMP 98.1
[2019-06-12] MEDS: PRENATAL VITAMINS W/ FOLIC ACID TABLET (FP) PO SCH (10:33)
[2019-06-12] MEDS: TOLNAFTATE 1% CREAM 15 GM TUBE TP SCH ×2 (10:33→21:23)
[2019-06-12] MEDS: HYDROCORTISONE 1% TOPICAL OINT 30 GM TUBE TP SCH ×2 (10:33→21:23)
[2019-06-12] MEDS: THIAMINE HCL 100 MG TABLET (FP) PO SCH (21:22)
[2019-06-12] MEDS: MELATONIN 5 MG TABLETS PO PRN (21:22)
[2019-06-12] MEDS: guaiFENesin 200 MG/10 ML 10 ML UNIT-DOSE CUPS PO PRN (21:22)
[2019-06-12] MEDS: diphenhydrAMINE HCL 50 MG CAPSULE PO PRN (21:22)
[2019-06-13 06:50] VITALS: BP 126/73
--- NOTE | 2019-06-13 09:08 | DS ---
[facility] Rehab Discharge Summary - [facility] Rehab Discharge Summary Admission Date: 06/02/19 Discharge Date: 06/13/19 - History Present History: Alcohol dependence, Cocaine dependence - Discharge Physical Exam Vital Signs: Vital Signs Temperature 98.1 F 06/13/19 06:49 Pulse Rate 81 06/13/19 06:49 Respiratory Rate 18 06/13/19 06:49 Blood Pressure 126/73 06/13/19 06:49 O2 Sat by Pulse Oximetry (%) Ambulatory Orders NK [No Known Home Medication] 05/29/19 ROS: denies alcohol cravings, shakes, abdominal pain, chest pain, sob and dizziness PE alert and oriented x 3 skin warm and dry car s1s2 resp cta bl gi nt,nd ext no shakes, full rom denies si/hi A/P alcohol dependence Reports hx of Hep C (untreated) patient medically stable for d/c at this time - Treatment Discharge Condition: Discharge condition good Hospital Course: Patient attended group meetings, 1:1 sessions with counselor and states he accomplished all rehab goals. Patient's labs noted with elevated LFTS likely due to alcohol intake and patient reports he has hx of Hep C (untreated). Patient does not have community provider. He was given contact information of [facility] for him to schedule appointment for evaluation. Patient encouraged to follow up with Elmer Palmer to continue group meetings and outpatient rehab treatment to prevent reoccurrence. Patient is medically stable at time of discharge and denies SI/HI. - Medication Discharge Medications: Ambulatory Orders NK [No Known Home Medication] 05/29/19 - Medication-Assisted Treatment (MAT) Medication-Assisted Treatment (MAT): No MAT Follow-up Referral: Aftercare arranged for Elmer JOSEPH, walk in [place]. - Discharge Instructions Diet, activity, other medical instructions: Diet: reg as tolerated Activity: ad darby as madi Other medical instructions: follow up with pcp as madi - Follow-up Referral Minutes to complete discharge: 35 - AMA Did Patient Leave Against Medical Advice: No
== END 2019-06-13 09:11 | disposition home or self-care (01) | DRG 772 ==
LOC: YASAS 12:49 → Y3W 12:50
PROVIDERS: ADMIT Allergy & Immunology; ATTEND Allergy & Immunology
PROC: HZ42ZZZ Group Counseling for Substance Abuse Treatment, Cognitive-Behavioral (ICD-10-PCS; principal; 2019-06-02)
DX: F10.20 Alcohol dependence, uncomplicated (principal); F11.20 Opioid dependence, uncomplicated; F14.20 Cocaine dependence, uncomplicated; J45.909 Unspecified asthma, uncomplicated; B18.2 Chronic viral hepatitis C; R94.5 Abnormal results of liver function studies; E73.9 Lactose intolerance, unspecified
CPT/HCPCS: 36415; 80053; 87389